=== PATIENT | male | born 1955 | race Caucasian/White ===

== ENCOUNTER 2016-11-22 19:34 | Emergency (ER) | payer MEDICARE, OTHER ==
[2016-11-22 19:43] VITALS: BP 122/73
--- NOTE | 2016-11-22 20:06 | ED Physician Documentation ---
PD HPI UPPER EXT INJURY - Stated complaint Stated Complaint: FINGER PX - Chief complaint Chief Complaint: Ext Problem PD PAST MEDICAL HISTORY - Past Medical History Past Medical History: Yes Endocrine/Autoimmune: Type 2 diabetes Musculoskeletal: Chronic back pain - Past Surgical History Past Surgical History: Yes Ortho: Rotator cuff repair, Spine surgery - Present Medications Home Medications: Ambulatory Orders Medication Instructions Recorded Confirmed Aspirin [Aspir 81] 81 mg PO DAILY 03/13/14 03/13/14 Azithromycin [Zithromax] 250 mg PO DAILY #6 tablet 03/13/14 Cyclobenzaprine [Flexeril] 10 mg PO TID PRN #20 tablet 03/13/14 DULoxetine [Cymbalta] 0 mg PO DAILY 03/13/14 03/13/14 HYDROcod/ACETAM 5/325 [Vicodin 1 - 2 ea PO Q6H PRN #15 tablet 03/13/14 5/325] Insulin Glargine [Lantus] 50 units SQ DAILY 03/13/14 03/13/14 Lisinopril 0 mg PO DAILY 03/13/14 03/13/14 Metformin HCl 1,000 mg PO BID 03/13/14 03/13/14 Tapentadol HCl [Nucynta ER] 100 mg PO TID 03/13/14 03/13/14 - Allergies Allergies/Adverse Reactions: Allergies Allergy/AdvReac Type Severity Reaction Status Date / Time No Known Drug Allergies Allergy Verified 11/22/16 19:43 - Social History Does the pt smoke?: No Smoking Status: Never smoker Does the pt drink ETOH?: No Does the pt have substance abuse?: Yes - Immunizations Immunizations are current?: Yes Results - Vitals Vitals: Vital Signs - 24 hr 11/22/16 19:39 Temperature 37.2 C Heart Rate 81 Respiratory 18 Rate Blood Pressure 122/73 O2 Saturation 100 Oxygen O2 Source Room air
--- NOTE | 2016-11-22 20:07 | ED Physician Documentation ---
History of Present Illness - Stated complaint Stated Complaint: FINGER PX - Chief complaint Chief Complaint: Ext Problem - History obtained from History obtained from: Patient - History of Present Illness Timing: How many days ago (2) Pain level now: 3 Improved by: no ameliorating factors Worsened by: no exacerbating or apparent inciting factor(s) - Additonal information Additional information: c/o redness, swelling, pain right fifth digit without injury x 2 days with gradual increasing (progression) of red streaking to mid-forearm. Not aware of any fevers at home. Review of Systems Constitutional: denies: Fever, Chills, Sweats Skin: reports: Rash Musculoskeletal: reports: Extremity pain, Extremity swelling Neurologic: denies: Focal weakness, Numbness PD PAST MEDICAL HISTORY - Past Medical History Past Medical History: Yes Endocrine/Autoimmune: Type 2 diabetes Musculoskeletal: Chronic back pain - Past Surgical History Past Surgical History: Yes Ortho: Rotator cuff repair, Spine surgery - Present Medications Home Medications: Ambulatory Orders Medication Instructions Recorded Confirmed Aspirin [Aspir 81] 81 mg PO DAILY 03/13/14 03/13/14 Azithromycin [Zithromax] 250 mg PO DAILY #6 tablet 03/13/14 Cyclobenzaprine [Flexeril] 10 mg PO TID PRN #20 tablet 03/13/14 DULoxetine [Cymbalta] 0 mg PO DAILY 03/13/14 03/13/14 HYDROcod/ACETAM 5/325 [Vicodin 1 - 2 ea PO Q6H PRN #15 tablet 03/13/14 5/325] Insulin Glargine [Lantus] 50 units SQ DAILY 03/13/14 03/13/14 Lisinopril 0 mg PO DAILY 03/13/14 03/13/14 Metformin HCl 1,000 mg PO BID 03/13/14 03/13/14 Tapentadol HCl [Nucynta ER] 100 mg PO TID 03/13/14 03/13/14 Clindamycin HCl 300 mg PO Q6HR 10 Days 11/22/16 - Allergies Allergies/Adverse Reactions: Allergies Allergy/AdvReac Type Severity Reaction Status Date / Time No Known Drug Allergies Allergy Verified 11/22/16 19:43 - Social History Does the pt smoke?: No Smoking Status: Never smoker Does the pt drink ETOH?: No Does the pt have substance abuse?: Yes - Immunizations Immunizations are current?: Yes PD ED PE NORMAL - Vitals Vital signs reviewed: Yes - General General: Alert and oriented X 3, No acute distress, Well developed/nourished - Neuro Neuro: No motor deficit, No sensory deficit PD ED PE EXPANDED - Extremities Extremities: Other (right fifth digit with erythema, swelling, and mild tenderness to palpation. There is no wound and no fluctuance or discharge. There is an erythematous streak from the right fifth digit to mid-forearm) Results - Vitals Vitals: Vital Signs - 24 hr 11/22/16 19:39 Temperature 37.2 C Heart Rate 81 Respiratory 18 Rate Blood Pressure 122/73 O2 Saturation 100 Oxygen O2 Source Room air PD MEDICAL DECISION MAKING - ED course Complexity details: considered differential, d/w patient Departure - Departure Disposition: 01 Home, Self Care Clinical Impression: Cellulitis Condition: Good Instructions: ED Infec Skin Cellulitis Follow-Up: Betsy Ngo ARNP [Primary Care Provider] - Within 3 Days (Contact your primary care provider to arrange for next available appointment. If possible, it would be ideal for your doctor to reexamine the infection Thursday or Thursday.) Prescriptions: Clindamycin HCl 300 mg PO Q6HR 10 Days Discharge Date/Time: 11/22/16 20:27
[2016-11-22] MEDS ORDERED: CLINDAMYCIN 150 MG CAPSULE PO ONE (20:23)
[2016-11-22] MEDS: CLINDAMYCIN 150 MG CAPSULE PO STA (20:25)
== END 2016-11-22 20:27 | disposition home or self-care (01) ==
LOC: ED 19:34
DX: L03.011 Cellulitis of right finger (principal); E11.9 Type 2 diabetes mellitus without complications; Z79.4 Long term (current) use of insulin; Z79.82 Long term (current) use of aspirin
CPT/HCPCS: 99283

== ENCOUNTER 2017-01-20 09:22 | Outpatient (CLI) | payer MEDICARE, OTHER ==
--- NOTE | 2017-01-20 11:49 | Ultrasound Report ---
RIGHT UPPER QUADRANT ULTRASOUND: 01/20/2017 CLINICAL INDICATION: Pain. COMPARISON: 05/31/2013 TECHNIQUE: Real-time scanning was performed with appliance service representative static images obtained. FINDINGS: The liver measures 18 cm. Hepatic echogenicity is increased, compatible with fatty infilt ration, with focal fatty sparing adjacent to the gallbladder fossa. No intrahepatic biliary dilatati on or suspicious solid lesion is seen. The common bile duct measures 3 mm. The gallbladder is luz l. The right kidney measures 12.5 cm, and again demonstrates an upper pole calculus, nonobstructing. No free fluid is present. IMPRESSION: FATTY INFILTRATION OF THE LIVER. RIGHT NEPHROLITHIASIS, WITHOUT EVIDENCE OF HYDRONEPHRO SIS. NO EVIDENCE OF CHOLELITHIASIS OR BILIARY DILATATION. JOB #: [id number] EXT JOB #:[id number]
== END 2017-01-20 09:23 | disposition home or self-care (01) ==
LOC: DI 09:22
PROVIDERS: ATTEND Nurse Practitioner Family
DX: K76.0 Fatty (change of) liver, not elsewhere classified (principal); N20.0 Calculus of kidney
CPT/HCPCS: 76705

== ENCOUNTER 2020-02-15 15:39 | Outpatient (CLI) | payer MEDICARE, OTHER ==
--- NOTE | 2020-02-15 16:18 | XRAY Report ---
PROCEDURE: Knee 3 View LT INDICATIONS: EFFUSION OF JOINT OF LT KNEE TECHNIQUE: 3 views of the left knee(s) were acquired. COMPARISON: None. FINDINGS: Bones: No fractures or dislocations. There is [id number] degenerative joint disease with join t space narrowing and periarticular osteophytes. No suspicious bony lesions. Soft tissues: Trace joint effusion. No suspicious soft tissue calcifications. IMPRESSION: [id number] degenerative joint disease. Reviewed by: Tawnya Marshall MD on 02/15/2020 4:16 PM PDT Approved by: Tawnya Marshall MD on 02/15/2020 4:16 PM PDT Station ID: [id number]
== END 2020-02-15 15:40 | disposition home or self-care (01) ==
LOC: DI 15:39
PROVIDERS: ATTEND Registered Nurse
DX: M17.12 Unilateral primary osteoarthritis, left knee (principal)

== ENCOUNTER 2020-12-09 19:28 | Inpatient (IN) | payer MEDICARE, OTHER ==
[2020-12-09 19:55] LABS: BASOPHILS % (AUTO) 0.2 %; HCT - HEMATOCRIT 46.4 % (42.0-52.0); HGB - HEMOGLOBIN 16.2 g/dL (14.0-18.0); LYMPHOCYTES % (AUTO) 9.2 %; MEAN CORPUSCULAR HEMOGLOBIN 29.6 pg (27.0-31.0); MEAN CORPUSCULAR HGB CONC 34.9 g/dL (32.0-36.0); MEAN CORPUSCULAR VOLUME 84.8 fL (80.0-94.0); MONOCYTES % (AUTO) 6.3 %; NEUTROPHILS % (AUTO) 83.4 %; PLT - PLATELET COUNT 291 10^3/uL (130-450); RED BLOOD COUNT 5.47 10^6/uL (4.70-6.10); RED CELL DISTRIBUTION WIDTH 13.2 % (12.0-15.0); WHITE BLOOD COUNT 20.5 x10^3/uL (4.8-10.8)
[2020-12-09 19:59] LABS: ABNORMAL LYMPHS % (MANUAL) 0 %
[2020-12-09] MEDS ORDERED: HYDROmorphone 1 MG/ML CARPUJECT IVP STA (20:01)
[2020-12-09] MEDS ORDERED: METOCLOPRAMIDE 10 MG/2 ML VIAL IVP STA (20:01)
[2020-12-09] MEDS ORDERED: SODIUM CHLORIDE 0.9% 1,000 ML IV STA ×2 (20:01→20:54)
--- NOTE | 2020-12-09 20:02 | ED Physician Documentation ---
PD HPI ABD PAIN - Stated complaint Stated Complaint: VOMITING, DIARRHEA - Chief complaint Chief Complaint: Abd Pain - History obtained from History obtained from: Patient - Additional information Additional information: 65-year-old gentleman with type 2 diabetes has been noncompliant with his insulin for the last 2 weeks or so because he ran out and did not reorder it. For the last 2 days he has been vomiting with high blood sugars. He has upper abdominal pain especially with the vomiting. No history of DKA. He does use marijuana several times a week but not daily. No history of abdominal s urgeries. Review of Systems Ten Systems: 10 systems reviewed and negative Constitutional: denies: Fever, Chills Cardiac: denies: Chest pain / pressure, Palpitations Respiratory: denies: Dyspnea, Cough GI: reports: Abdominal Pain, Nausea, Vomiting, Diarrhea (Mild) PD PAST MEDICAL HISTORY - Past Medical History Endocrine/Autoimmune: Type 2 diabetes Musculoskeletal: Chronic back pain - Past Surgical History Past Surgical History: Yes Ortho: Rotator cuff repair, Spine surgery - Present Medications Home Medications: Ambulatory Orders Medication Instructions Recorded Confirmed Aspirin [Aspir 81] 81 mg PO DAILY 03/13/14 12/09/20 Cyclobenzaprine [Flexeril] 10 mg PO TID PRN #20 tablet 03/13/14 12/09/20 DULoxetine [Cymbalta] 0 mg PO DAILY 03/13/14 12/09/20 Insulin Glargine [Lantus] 50 units SQ DAILY 03/13/14 12/09/20 Lisinopril 5 mg PO DAILY 03/13/14 12/09/20 Metformin HCl 1,000 mg PO BID 03/13/14 12/09/20 Atorvastatin Calcium [Lipitor] 80 mg PO DAILY 12/09/20 12/09/20 Empagliflozin [Jardiance] 10 mg PO DAILY 12/09/20 12/09/20 Metoprolol Tartrate [Lopressor] 12.5 mg PO 12/09/20 12/09/20 Tamsulosin [Flomax] 0.4 mg PO DAILY PM 12/09/20 12/09/20 - Allergies Allergies/Adverse Reactions: Allergies Allergy/AdvReac Type Severity Reaction Status Date / Time No Known Drug Allergies Allergy Verified 12/09/20 19:43 - Social History Does the pt smoke?: No Smoking Status: Never smoker Does the pt drink ETOH?: No Does the pt have substance abuse?: Yes - Immunizations Immunizations are current?: Yes PD ED PE NORMAL - Vitals Vital signs reviewed: Yes - General General: Alert and oriented X 3, No acute distress - HEENT HEENT: PERRL, EOMI - Neck Neck: Supple, no meningeal sign, No bony TTP - Cardiac Cardiac: RRR, No murmur - Respiratory Respiratory: No respiratory distress, Clear bilaterally - Abdomen Abdomen: Normal bowel sounds, Soft, Non tender - Back Back: No CVA TTP, No spinal TTP - Derm Derm: Normal color, Warm and dry - Extremities Extremities: No edema, No calf tenderness / cord - Neuro Neuro: Alert and oriented X 3, Normal speech Results - Vitals Vitals: Vital Signs - 24 hr 12/09/20 12/09/20 12/09/20 19:40 20:13 21:15 Temperature 36.2 C L Heart Rate 93 101 H 89 Respiratory 18 18 14 Rate Blood Pressure 108/64 163/93 H 159/82 H O2 Saturation 100 100 97 12/09/20 22:20 Temperature 37.0 C Heart Rate 100 Respiratory 16 Rate Blood Pressure 155/58 H O2 Saturation 99 Oxygen O2 Source Room air - Labs Labs: Laboratory Tests 12/09/20 12/09/20 12/09/20 19:51 19:51 19:51 WBC 20.5 H RBC 5.47 Hgb 16.2 Hct 46.4 MCV 84.8 MCH 29.6 MCHC 34.9 RDW 13.2 Plt Count 291 MPV 10.0 Neut # (Auto) Not Reportable Lymph # (Auto) Not Reportable Emanuel # (Auto) Not Reportable Eos # (Auto) Not Reportable Baso # (Auto) Not Reportable Absolute Nucleated RBC Not Reportable Total Counted 100 Band Neuts % (Manual) 2 Abnorm Lymph % (Manual) 0 Nucleated RBC % Not Reportable Neutrophils # (Manual) 17.0 H Lymphocytes # (Manual) 3.3 Monocytes # (Manual) 0.2 Eosinophils # (Manual) 0.0 Basophils # (Manual) 0.0 Differential Comment MANUAL DIFFERENTIAL WBC Morphology 1+ TOXIC GRANULATION Platelet Estimate NORMAL (130-450,000) Platelet Morphology NORMAL APPEARANCE RBC Morph Micro Appear NORMAL APPEARANCE VBG pH VBG pCO2 VBG pO2 VBG HCO3 VBG Total CO2 VBG O2 Saturation VBG Base Excess Sodium 132 L Potassium 4.6 Chloride 84 L Carbon Dioxide 18 L Anion Gap 30.0 H BUN 41 H Creatinine 1.4 H Estimated GFR (MDRD) 51 L Glucose 447 H POC Whole Bld Glucose 429 H Lactic Acid Calcium 14.2 H* Total Bilirubin 2.1 H AST 16 ALT 30 Alkaline Phosphatase 140 H Total Protein 8.7 H Albumin 4.6 Globulin 4.1 Albumin/Globulin Ratio 1.1 Lipase 25 PTH Intact Urine Color Urine Clarity Urine pH Ur Specific [place] Urine Protein Urine Glucose (UA) Urine Ketones Urine Occult Blood Urine Nitrite Urine Bilirubin Urine Urobilinogen Ur Leukocyte Esterase Ur Microscopic Review Urine Culture Comments Serum Ketones 12/09/20 12/09/20 12/09/20 19:51 20:08 20:08 WBC RBC Hgb Hct MCV MCH MCHC RDW Plt Count MPV Neut # (Auto) Lymph # (Auto) Emanuel # (Auto) Eos # (Auto) Baso # (Auto) Absolute Nucleated RBC Total Counted Band Neuts % (Manual) Abnorm Lymph % (Manual) Nucleated RBC % Neutrophils # (Manual) Lymphocytes # (Manual) Monocytes # (Manual) Eosinophils # (Manual) Basophils # (Manual) Differential Comment WBC Morphology Platelet Estimate Platelet Morphology RBC Morph Micro Appear VBG pH VBG pCO2 VBG pO2 VBG HCO3 VBG Total CO2 VBG O2 Saturation VBG Base Excess Sodium Potassium Chloride Carbon Dioxide Anion Gap BUN Creatinine Estimated GFR (MDRD) Glucose POC Whole Bld Glucose Lactic Acid 2.3 H Calcium Total Bilirubin AST ALT Alkaline Phosphatase Total Protein Albumin Globulin Albumin/Globulin Ratio Lipase PTH Intact 5 L Urine Color Urine Clarity Urine pH Ur Specific [place] Urine Protein Urine Glucose (UA) Urine Ketones Urine Occult Blood Urine Nitrite Urine Bilirubin Urine Urobilinogen Ur Leukocyte Esterase Ur Microscopic Review Urine Culture Comments Serum Ketones SMALL H 12/09/20 12/09/20 12/09/20 20:08 20:50 22:10 WBC RBC Hgb Hct MCV MCH MCHC RDW Plt Count MPV Neut # (Auto) Lymph # (Auto) Emanuel # (Auto) Eos # (Auto) Baso # (Auto) Absolute Nucleated RBC Total Counted Band Neuts % (Manual) Abnorm Lymph % (Manual) Nucleated RBC % Neutrophils # (Manual) Lymphocytes # (Manual) Monocytes # (Manual) Eosinophils # (Manual) Basophils # (Manual) Differential Comment WBC Morphology Platelet Estimate Platelet Morphology RBC Morph Micro Appear VBG pH 7.349 VBG pCO2 33.0 L VBG pO2 28.2 VBG HCO3 17.8 L VBG Total CO2 18.8 L VBG O2 Saturation 58.4 L VBG Base Excess -6.6 L Sodium Potassium Chloride Carbon Dioxide Anion Gap BUN Creatinine Estimated GFR (MDRD) Glucose POC Whole Bld Glucose 409 H Lactic Acid Calcium Total Bilirubin AST ALT Alkaline Phosphatase Total Protein Albumin Globulin Albumin/Globulin Ratio Lipase PTH Intact Urine Color YELLOW Urine Clarity CLEAR Urine pH 5.5 Ur Specific [place] 1.025 Urine Protein TRACE Urine Glucose (UA) >=1000 H Urine Ketones >=80 H Urine Occult Blood SMALL H Urine Nitrite NEGATIVE Urine Bilirubin NEGATIVE Urine Urobilinogen 0.2 (NORMAL) Ur Leukocyte Esterase NEGATIVE Ur Microscopic Review INDICATED Urine Culture Comments Not Reportable Serum Ketones 12/09/20 22:23 WBC RBC Hgb Hct MCV MCH MCHC RDW Plt Count MPV Neut # (Auto) Lymph # (Auto) Emanuel # (Auto) Eos # (Auto) Baso # (Auto) Absolute Nucleated RBC Total Counted Band Neuts % (Manual) Abnorm Lymph % (Manual) Nucleated RBC % Neutrophils # (Manual) Lymphocytes # (Manual) Monocytes # (Manual) Eosinophils # (Manual) Basophils # (Manual) Differential Comment WBC Morphology Platelet Estimate Platelet Morphology RBC Morph Micro Appear VBG pH VBG pCO2 VBG pO2 VBG HCO3 VBG Total CO2 VBG O2 Saturation VBG Base Excess Sodium Potassium Chloride Carbon Dioxide Anion Gap BUN Creatinine Estimated GFR (MDRD) Glucose POC Whole Bld Glucose 306 H Lactic Acid Calcium Total Bilirubin AST ALT Alkaline Phosphatase Total Protein Albumin Globulin Albumin/Globulin Ratio Lipase PTH Intact Urine Color Urine Clarity Urine pH Ur Specific [place] Urine Protein Urine Glucose (UA) Urine Ketones Urine Occult Blood Urine Nitrite Urine Bilirubin Urine Urobilinogen Ur Leukocyte Esterase Ur Microscopic Review Urine Culture Comments Serum Ketones PD MEDICAL DECISION MAKING - ED course ED course: 65-year-old gentleman with diabetes, also frequent cannabis use presents with upper abdominal pain and vomiting for 2 days. Exam is benign. Labs notable for significant prerenal azotemia with MORTEZA, profound hypercalcemia, elevated white count without other signs of infection. Parathyroid hormone was appropriately low. CT scanning of the chest and abdomen were done to evaluate for malignancy in the setting of profound hypercalcemia. He was fluid resuscitated and given IV insulin. CT reads pending on admission, but noted to have a large bladder on CT by me and post void bladder scan residual was about [address] Moya is admitting. Departure - Departure Disposition: 66 [facility] DC/Xfer Clinical Impression: Abdominal pain, Vomiting, Dehydration, DKA (diabetic ketoacidoses), Hypercalcemia Condition: Stable
[2020-12-09 20:18] LABS: ALBUMIN 4.6 g/dL (3.2-5.5); ALBUMIN/GLOBULIN RATIO 1.1 (1.0-2.2); BILIRUBIN,TOTAL 2.1 mg/dL (0.2-1.0); CREATININE 1.4 mg/dL (0.6-1.2); POTASSIUM 4.6 mmol/L (3.5-5.0); TOTAL PROTEIN 8.7 g/dL (6.7-8.2)
[2020-12-09 20:20] LABS: CALCIUM 14.2 mg/dL (8.5-10.3)
[2020-12-09 20:21] LABS: VBG PH 7.349 (7.31-7.41)
[2020-12-09 20:22] LABS: BAND NEUTROPHILS % (MANUAL) 2 %; LYMPHOCYTES # (MANUAL) 3.3 10^3/uL (1.5-3.5); LYMPHOCYTES % (MANUAL) 16 %; MONOCYTES # (MANUAL) 0.2 10^3/uL (0.0-1.0)
[2020-12-09 20:22] LABS: VBG BASE EXCESS -6.6 mmol/L (-2 - +2); VBG HCO3 17.8 mmol/L (23-28); VBG OXYGEN SATURATION 58.4 % (60-80); VBG PO2 28.2 mmHg (25-47); VBG TOTAL CO2 18.8 mmol/L (24-29)
[2020-12-09 20:23] LABS: PLATELET ESTIMATE, MANUAL NORMAL (130-450,000) (NORMAL); PLATELET MORPHOLOGY NORMAL APPEARANCE (NORMAL); RBC MORPHOLOGY (MULTIPLE) NORMAL APPEARANCE (NORMAL); WBC MORPHOLOGY (MULTIPLE) 1+ TOXIC GRANULATION (NORMAL)
[2020-12-09 20:24] LABS: DIFFERENTIAL COMMENT MANUAL DIFFERENTIAL
[2020-12-09] MEDS ORDERED: IOPAMIDOL-300 100 ML VIAL ONE (20:41)
[2020-12-09] MEDS ORDERED: INSULIN REGULAR HUMAN 100 UNIT/1 ML 10 ML MDV IVP STA (20:54)
[2020-12-09] MEDS ORDERED: IOPAMIDOL-300 100 ML VIAL IVP ONE (22:03)
[2020-12-09] MEDS ORDERED: ACETAMINOPHEN 325 MG TABLET PO PRN (22:15)
[2020-12-09] MEDS ORDERED: oxyCODONE 5 MG TABLET PO PRN (22:15)
[2020-12-09 22:19] LABS: GLUCOSE, URINE (UA) >=1000 mg/dL (NEGATIVE); KETONES,URINE (UA) >=80 mg/dL (NEGATIVE); LEUKOCYTE ESTERASE, URINE NEGATIVE (NEGATIVE); NITRITE,URINE NEGATIVE (NEGATIVE); OCCULT BLOOD,URINE SMALL (NEGATIVE); PH,URINE 5.5 PH (5.0-7.5); PROTEIN,URINE TRACE mg/dL (NEGATIVE); UROBILINOGEN,URINE 0.2 (NORMAL) E.U./dL (NORMAL)
[2020-12-09 22:21] LABS: CLARITY,URINE CLEAR (CLEAR)
[2020-12-09 22:26] LABS: BILIRUBIN,URINE NEGATIVE (NEGATIVE); ICTOTEST,URINE NEGATIVE
--- NOTE | 2020-12-09 22:26 | HISTORY & PHYSICAL EXAMINATION ---
Chief Complaint - Chief Complaint Chief Complaint: Nausea and vomiting History of Present Illness - Admitted From Admitted From:: Home - History Obtained From Records Reviewed: Yes History obtained from: Patient, ER Physician, EMR - History of Present Illness HPI Comment/Other: This is a 65-year-old male with a past medical history significant for type 2 diabetes mellitus treated with insulin, coronary artery disease who presents today complaining of nausea and vomiting for the past 2 days. He states his symptoms began 3 days ago and have persisted. He has been unable to tolerate any food and only minimal liquids. He states anything he tries to consume he vomits right away. He does complain of heartburn for which he has been taking Tums on a daily basis for the past few days. He tells me he takes Tums on and off for many years but he has taken about 10 tablets over the past 3 days for heartburn associated with vomiting. He reports no chest pain, dyspnea, cough. Denies any fevers, chills. He reports no abdominal pain, dysuria. He does report frequency and urgency as well as polyuria. He states he is was to be on insulin for his diabetes but he ran out a few weeks ago and went on a trip and he never got a refill. He states his blood glucose to be well controlled with an A1c around 7% but he states his blood glucose has been poorly controlled lately. He only checks it once a week at most. He states he has been on Jard iance for about 6 months from what he can remember. He tells me he does take vitamin D [id number] but he does not know the dose. He is not on a thiazide and denies a personal history of cancer. He reports having a colonoscopy recently which was unremarkable. He admits to marijuana use about 3-4 times a week. He states his nausea is relieved by warm showers. In the emergency department, he was found to be afebrile. His heart is in the 90s. Blood pressure was 108/64. He was not tachypneic and saturating well on room air. His labs were significant for a white count of 20.5 with a left shift. His bicarbonate was 18, anion gap 30, BUN 41, creatinine 1.4. His blood glucose 447 and his calcium 14.2. Serum ketones were small. His urinalysis revealed ketones and glucosuria with no pyuria or bacteriuria. He was given 2 L normal saline as well as 6 units of IV insulin. He underwent a CT the abdomen pelvis as well as chest which revealed some esophagitis but no obvious mass. Given the above findings, medicine was consulted for admission. I did discuss goals of care with the patient and he would like to be a full code. History - Past Medical History Cardiovascular: reports: High cholesterol, Coronary artery disease Endocrine/Autoimmune: reports: Type 2 diabetes : reports: Benign prostate hypertrophy Musculoskeletal: reports: Chronic back pain - Past Surgical History General: reports: Colonoscopy Ortho: reports: Rotator cuff repair, Spine surgery - Family & Social History Family History Comment/Other: Reports both of his parents had diabetes and heart disease. No family history of cancer. Living arrangement: At home Living Situation: With spouse/s.o. Social History Notes: He lives at home with his . They have lived on [facility] for over 25 years. He is now retired but previously worked in the [employer] industry. He is a non-smoker and rarely drinks alcohol. He does smoke marijuana about 3-4 times a week and has been doing so for many years. Meds/Allgy - Home Medications Home Medications: Ambulatory Orders Medication Instructions Recorded Confirmed Aspirin [Aspir 81] 81 mg PO DAILY 03/13/14 12/09/20 Cyclobenzaprine [Flexeril] 10 mg PO TID PRN #20 tablet 03/13/14 12/09/20 DULoxetine [Cymbalta] 0 mg PO DAILY 03/13/14 12/09/20 Insulin Glargine [Lantus] 50 units SQ DAILY 03/13/14 12/09/20 Lisinopril 5 mg PO DAILY 03/13/14 12/09/20 Metformin HCl 1,000 mg PO BID 03/13/14 12/09/20 Atorvastatin Calcium [Lipitor] 80 mg PO DAILY 12/09/20 12/09/20 Empagliflozin [Jardiance] 10 mg PO DAILY 12/09/20 12/09/20 Metoprolol Tartrate [Lopressor] 12.5 mg PO 12/09/20 12/09/20 Tamsulosin [Flomax] 0.4 mg PO DAILY PM 12/09/20 12/09/20 - Allergies Allergies/Adverse Reactions: Allergies Allergy/AdvReac Type Severity Reaction Status Date / Time No Known Drug Allergies Allergy Verified 12/09/20 19:43 Review of Systems - Constitutional Constitutional: denies: Fever, Chills - Eyes Eyes: denies: Blurred vision - Ears, Nose & Throat Ears, Nose & Throat: denies: Nasal discharge, Nasal congestion, Sore throat - Cardiovascular Cariovascular: reports: Lightheadedness. denies: Chest pain, Edema, Exertional dyspnea, Decr. exercise tolerance - Respiratory Respiratory: denies: Cough, SOB at rest, SOB with exertion - Gastrointestinal Gastrointestinal: reports: Diarrhea, Nausea, Vomiting, Reflux/heartburn, Poor appetite. denies: Abdominal pain, Constipation, Change in bowel habits, Black stools, Bloody stools, Kota blood emesis - Genitourinary Genitourinary: reports: Frequency, Urgency. denies: Dysuria, Hematuria - Musculoskeletal Musculoskeletal: reports: Back pain. denies: Limited range of motion - Integumentary Integumentary: denies: Rash - Neurological Neurological: reports: Dizziness. denies: General weakness, Focal weakness, Headache, Numbness - Endocrine Endocrine: reports: Polyuria - Hematologic/Lymphatic Hematologic/Lymphatic: denies: Anemia, Bleeding tendencies - All Other Systems All Other Systems: reports: Reviewed and negative Prior Level of Functionality: He is independent with his ADLs. Exam - Vital Signs Reviewed Vital Signs: Yes Vital Signs: Vital Signs x48h Temp Pulse Resp BP Pulse Ox 12/09/20 21:15 89 14 159/82 H 97 12/09/20 20:13 101 H 18 163/93 H 100 12/09/20 19:40 36.2 C L 93 18 108/64 100 - Physical Exam General Appearance: positive: No acute distress, Alert Eyes Bilateral: positive: Normal inspection, Conjunctivae nml ENT: positive: Dry mucous membranes. negative: No signs of dehydration Neck: positive: Nml inspection Respiratory: positive: No respiratory distress. negative: Wheezes, Rales Cardiovascular: positive: Regular rate & rhythm, No murmur. negative: T achycardia, Systolic murmur Abdomen: positive: Non-tender, No distention. negative: Guarding, Rebound Rectal: negative: Non-tender Skin: positive: Warm, Dry Extremities: positive: Full ROM, No pedal edema Neurologic/Psychiatric: positive: Motor nml. negative: Disoriented to person, Disoriented to place Conclusion/Plan - Problem List (1) DKA (diabetic ketoacidoses) Conclusion/Plan: Suspect he has mild diabetic ketoacidosis given his elevated anion gap of 30 and a bicarbonate of 18. His pH 7.349 on VBG. Suspect the acidosis is due to mild DKA versus starvation ketoacidosis given his poor oral intake. I would have expected his bicarbonate to be much lower given the elevated anion gap but I do wonder if there could be a component of metabolic alkalosis which could be milk- alkali syndrome from the calcium and vitamin D has been taking given he also has hypercalcemia. The DKA may also be secondary to the use of Jardiance. At this time, we will keep him n.p.o. except for sips of clears. Given this is only mild DKA, we will place him on 50 units of Lantus this evening plus sliding scale. We will check labs every 6 hours. Continue hydration with normal saline and will transition to D5 half-normal when blood glucose is less than 200. Check A1c. (2) Hypercalcemia Conclusion/Plan: His calcium is elevated at 14.2 on admission. The etiology of this is not clear at the moment. Although he has been taking calcium carbonate and vitamin D, I am not sure that this is milk-alkali syndrome although it is on the differential as he could have a mixed acid-base secondary to the diabetic ketoacidosis and milk-alkali syndrome. CT the abdomen pelvis revealed no obvious mass to suggest a malignancy. His PTH is appropriately decreased at 5. At this time, we will hydrate him with normal saline at 200 cc an hour. We will hold off on zol edronic acid unless his calcium remains significantly elevated tomorrow morning. Check vitamin D and PTH related protein. Will consider SPEP/UPEP although his total protein is not significantly elevated. (3) Nausea and vomiting Conclusion/Plan: This may be related to his diabetic ketoacidosis or due to cannabinoid hyperemesis syndrome. CT the abdomen pelvis revealed no evidence of obstruction. There was evidence of esophagitis likely due to his multiple episodes of vomiting over the past 3 days. At this time, he is improved from a nausea and vomiting standpoint. We will place him on Protonix daily. N.p.o. for time being given the diabetic ketoacidosis but will start him on a clear liquid diet as soon as that is resolved. Zofran as needed for nausea. (4) Acute kidney injury Conclusion/Plan: Suspect this is likely prerenal injury. His creatinine is elevated at 1.4 and his baseline is 0.7 although this is from labs over 5 years ago. Although his bladder was quite distended on CT the abdomen pelvis, there is no evidence of hydronephrosis. Suspect his injury is due to dehydration from the DKA. We will hydrate him with IV fluids at 200 cc an hour. Monitor his renal function and urine output. Hold lisinopril. (5) Leukocytosis Conclusion/Plan: I suspect this is likely reactive. His white count is elevated at 20,000 with a left shift. Although his lactic acid was mildly elevated, there is no evidence of infection and I suspect this is related to the use of Metformin and the acute kidney injury as well as dehydration. We will hold off on antibiotics at this time given lack of obvious infection. We will recheck CBC in the morning. (6) History of coronary artery disease Conclusion/Plan: Stable. We will resume his home aspirin, statin, metoprolol. (7) BPH (benign prostatic hyperplasia) Conclusion/Plan: The CT of the abdomen pelvis did reveal a distended bladder. His postvoid residual was 400 mL. We will continue his Flomax and bladder scan as needed. - Lab Results Lab results reviewed: Yes Fish Bones: 12/09/20 19:51 12/09/20 22:28 - Diagnostic Imaging Results Diagnostic Imaging Results: positive: Prelim report reviewed - EKG Results EKG Interpreted Independently: Yes EKG Comparison: No prior EKG EKG Findings: EKG reveals a sinus rhythm with Q waves present in the inferior and anterior leads. No evidence of ischemia. Core Measures - Anticipated LOS I expect patient to be DC'd or transferred within 96 hours.: Yes - Issues Hospital Issues and Management Plan: 65-year-old male with type 2 diabetes mellitus presents with nausea vomiting found to have mild DKA and hypercalcemia. Will admit for insulin, IV fluids. - DVT/VTE - Prophylaxis VTE/DVT Device ordered at admit?: Yes VTE/DVT Prophylaxis med ordered at admit?: Yes
[2020-12-09 22:33] LABS: BACTERIA,URINE None Seen /HPF (None Seen); RBC,URINE 0-5 /HPF (0-5); SQUAMOUS EPITHELIAL CELL,UR NONE SEEN (<= Few); WBC,URINE 0-3 /HPF (0-3)
--- OUTSIDE RECORDS SUMMARY | 2020-12-09 22:33 | EXTERNAL MEDICAL SUMMARY RPT | Continuity of Care Document ---
:1955 Demographics Phone Unavailable Preferred Language Unknown Marital Status Unknown Alevism Affiliation Unknown Race Unknown Ethnic Group Unknown Author Organization [facility] Address [address] [id number] Phone Social History date description facility [phone]
[2020-12-09 22:52] LABS: CREATININE 1.3 mg/dL (0.6-1.2); MAGNESIUM 1.9 mg/dL (1.7-2.8); PHOSPHORUS 4.3 mg/dL (2.5-4.6); POTASSIUM 4.6 mmol/L (3.5-5.0)
[2020-12-09 22:54] LABS: CALCIUM 12.3 mg/dL (8.5-10.3)
[2020-12-09] MEDS ORDERED: SODIUM CHLORIDE 0.9% 1,000 ML IV SCH (23:00)
[2020-12-09] MEDS: TAMSULOSIN 0.4 MG CAPSULE PO SCH (23:27)
[2020-12-09] MEDS: ATORVASTATIN 40 MG TABLET PO SCH (23:27)
[2020-12-09] MEDS: DEXTROSE 5%-0.45% NACL 1,000 ML IV SCH (23:28)
[2020-12-09] MEDS: SODIUM CHLORIDE FLUSH 0.9% 10 ML SYRINGE IVP SCH (23:35)
[2020-12-09] MEDS: SODIUM CHLORIDE 0.9% 1,000 ML IV SCH (23:38)
[2020-12-09] MEDS: INSULIN REGULAR HUMAN 300 UNIT/3 ML VIAL SUBQ SCH (23:42)
[2020-12-09] MEDS: INSULIN GLARGINE 300 UNIT/3 ML PEN SUBQ SCH (23:43)
[2020-12-09 23:44] LABS: B. PARAPERTUSSIS- RESP PCR PAN NOT DETECTED; B. PERTUSSIS- RESP PCR PANEL NOT DETECTED; C. PNEUMONIAE- RESP PCR PANEL NOT DETECTED; CORONAVIRUS 229E-RESP PCR NOT DETECTED; CORONAVIRUS HKU1-RESP PCR NOT DETECTED; CORONAVIRUS NL63-RESP PCR NOT DETECTED; CORONAVIRUS OC43-RESP PCR NOT DETECTED; HUMAN METAPNEUMOVIRUS NOT DETECTED; INFLUENZA A- RESP PCR PANEL NOT DETECTED; INFLUENZA B - RESP PCR PANEL NOT DETECTED; M. PNEUMONIAE- RESP PCR PANEL NOT DETECTED; PARAINFLUENZA VIRUS 1 NOT DETECTED; PARAINFLUENZA VIRUS 2 NOT DETECTED; PARAINFLUENZA VIRUS 3 NOT DETECTED; PARAINFLUENZA VIRUS 4 NOT DETECTED; RHINOVIRUS/ENTEROVIRUS NOT DETECTED; RSV- RESP PCR PANEL NOT DETECTED; SARS-CoV-2 -RESP PCR PANEL NOT DETECTED
[2020-12-10] MEDS: SODIUM CHLORIDE 0.9% 1,000 ML IV SCH ×4 (01:22→20:47)
[2020-12-10] MEDS: ONDANSETRON 4 MG/2 ML VIAL IVP PRN ×2 (04:26→10:22)
[2020-12-10 05:22] LABS: BASOPHILS % (AUTO) 0.3 %; HGB - HEMOGLOBIN 15.2 g/dL (14.0-18.0); LYMPHOCYTES % (AUTO) 10.5 %; MEAN CORPUSCULAR HEMOGLOBIN 28.8 pg (27.0-31.0); MEAN CORPUSCULAR HGB CONC 33.8 g/dL (32.0-36.0); MEAN CORPUSCULAR VOLUME 85.4 fL (80.0-94.0); MEAN PLATELET VOLUME 10.1 fL (7.4-11.4); MONOCYTES % (AUTO) 8.4 %; NEUTROPHILS % (AUTO) 79.8 %; PLT - PLATELET COUNT 275 10^3/uL (130-450); RED BLOOD COUNT 5.27 10^6/uL (4.70-6.10); RED CELL DISTRIBUTION WIDTH 13.2 % (12.0-15.0); WHITE BLOOD COUNT 20.6 x10^3/uL (4.8-10.8)
[2020-12-10 05:30] LABS: ABNORMAL LYMPHS % (MANUAL) 0 %; BAND NEUTROPHILS % (MANUAL) 0 %
[2020-12-10 05:35] LABS: CALCIUM 11.2 mg/dL (8.5-10.3); CREATININE 1.1 mg/dL (0.6-1.2); MAGNESIUM 1.8 mg/dL (1.7-2.8); PHOSPHORUS 2.5 mg/dL (2.5-4.6); POTASSIUM 3.7 mmol/L (3.5-5.0)
[2020-12-10] MEDS: INSULIN REGULAR HUMAN 300 UNIT/3 ML VIAL SUBQ SCH ×4 (05:43→16:44)
[2020-12-10 05:55] LABS: BASOPHILS # (MANUAL) 0.2 10^3/uL (0-0.1); BASOPHILS % (MANUAL) 1 %; LYMPHOCYTES # (MANUAL) 1.2 10^3/uL (1.5-3.5); LYMPHOCYTES % (MANUAL) 6 %; NEUTROPHILS # (MANUAL) 18.1 10^3/uL (1.5-6.6)
[2020-12-10 05:56] LABS: DIFFERENTIAL COMMENT MANUAL DIFFERENTIAL; PLATELET ESTIMATE, MANUAL NORMAL (130-450,000) (NORMAL); PLATELET MORPHOLOGY NORMAL APPEARANCE (NORMAL); RBC MORPHOLOGY (MULTIPLE) NORMAL APPEARANCE (NORMAL); WBC MORPHOLOGY (MULTIPLE) NORMAL APPEARANCE (NORMAL)
--- NOTE | 2020-12-10 07:28 | PROVIDER PROGRESS NOTE ---
Subjective - Prog Note Date Prog Note Date: 12/10/20 Prog Note Time: 07:27 - Subjective Pt reports feeling: Improved Subjective: no new events overnight per sign out. He is comfortable x for nausea. zofran not covering 6 hours. No fever. WBc same Denies cp, cough, congestion. Current Medications - Current Medications Current Medications: Active Medications Acetaminophen (Acetaminophen 325 Mg Tablet) 650 mg PO Q4HR PRN PRN Reason: Pain 1 to 4 Aspirin (Aspirin Ec 81 Mg Tablet) 81 mg PO DAILY JASON Atorvastatin Calcium (Atorvastatin 40 Mg Tablet) 80 mg PO HS [facility] [place] Last Admin: 12/09/20 23:27 Dose: 80 mg Documented by: Enoxaparin Sodium (Enoxaparin 40 Mg/0.4 Ml Syringe) 40 mg SUBQ DAILY [facility] [place] Sodium Chloride (Normal Saline 0.9%) 1,000 mls @ 200 mls/hr IV .Q5H [facility] [place] Last Admin: 12/10/20 06:07 Dose: 200 mls/hr Documented by: Dextrose/Sodium Chloride (D5.45ns) 1,000 mls @ 125 mls/hr IV .Q8H [facility] [place] Last Infusion: 12/10/20 01:22 Dose: 0 mls/hr Documented by: Insulin Glargine (Insulin Glargine 300 Unit/3 Ml Pen) 50 unit SUBQ QPM [facility] [place] Last Admin: 12/09/20 23:43 Dose: 50 unit Documented by: Insulin Human Regular (Insulin Regular Human 300 Unit/3 Ml Vial) 1 - 9 unit SUBQ Q6HR [facility] [place]; Protocol Last Admin: 12/10/20 05:43 Dose: 5 unit Documented by: Ondansetron HCl (Ondansetron 4 Mg/2 Ml Vial) 4 mg IVP Q6HR PRN PRN Reason: Nausea / Vomiting Last Admin: 12/10/20 04:26 Dose: 4 mg Documented by: Oxycodone HCl (Oxycodone 5 Mg Tablet) 5 mg PO Q4HR PRN PRN Reason: Pain 5 to 7 Pneumococcal 13-Valent Conj Vacc (Pneumococcal 13-Valent Conj 0.5 Ml Syringe) 0.5 ml IM .ONCE ONE Stop: 12/10/20 09:01 Sodium Chloride (Sodium Chloride Flush 0.9% 10 Ml Syringe) 10 ml IVP PRN PRN PRN Reason: NEEDED PER PROVIDER ORDERS Sodium Chloride (Sodium Chloride Flush 0.9% 10 Ml Syringe) 10 ml IVP 0100,0900,1700 [facility] [place] Last Admin: 12/09/20 23:35 Dose: 10 ml Documented by: Tamsulosin HCl (Tamsulosin 0.4 Mg Capsule) 0.4 mg PO QPM [facility] [place] Last Admin: 12/09/20 23:27 Dose: 0.4 mg Documented by: Aspirin [Aspir 81] 81 mg PO DAILY 03/13/14 DULoxetine [Cymbalta] 0 mg PO DAILY 03/13/14 Insulin Glargine [Lantus] 50 units SQ DAILY 03/13/14 Lisinopril 5 mg PO DAILY 03/13/14 Metformin HCl 1,000 mg PO BID 03/13/14 Atorvastatin Calcium [Lipitor] 80 mg PO DAILY 12/09/20 Empagliflozin [Jardiance] 10 mg PO DAILY 12/09/20 Metoprolol Tartrate [Lopressor] 12.5 mg PO 12/09/20 Tamsulosin [Flomax] 0.4 mg PO DAILY PM 12/09/20 Objective - Vital Signs/Intake & Output Reviewed Vital Signs: Yes Vital Signs: Vital Signs x48h Temp Pulse Resp BP Pulse Ox 12/10/20 04:17 37 C 95 18 154/74 H 97 Intake & Output: Intake & Output 12/07/20 12/08/20 12/09/20 12/10/20 23:59 23:59 23:59 23:59 Intake Total 1999 1187.5 Output Total 1175 Balance 1999 12.5 - Objective General Appearance: positive: Alert, Mild distress (from nausea), Other (thin white male, glasses) Eyes Bilateral: positive: PERRL, EOMI ENT: positive: No signs of dehydration Neck: positive: No JVD. negative: Stiff neck Respiratory: positive: No respiratory distress. negative: Wheezes, Rales, Rhonchi Cardiovascular: positive: Regular rate & rhythm. negative: Gallop/S4, Friction rub Abdomen: positive: No organomegaly, Nml bowel sounds, No distention, Tenderness (minimal over bladder area). negative: Guarding, Rebound Skin: positive: Warm, Dry, Pallor Extremities: positive: Full ROM, No pedal edema Neurologic/Psychiatric: positive: Oriented x3, CN's nml (2-12), Motor nml - Lab Results Fish Bones: 12/10/20 04:50 12/10/20 04:50 Other Labs: Lab Results x24hrs 12/10/20 12/10/20 12/10/20 Range/Units 04:53 04:50 04:50 WBC (4.8-10.8) x10^3/uL RBC (4.70-6.10) 10^6/uL Hgb (14.0-18.0) g/dL Hct (42.0-52.0) % MCV (80.0-94.0) fL MCH (27.0-31.0) pg MCHC (32.0-36.0) g/dL RDW (12.0-15.0) % Plt Count (130-450) 10^3/uL MPV (7.4-11.4) fL Neut # (Auto) Lymph # (Auto) [place] # (Auto) Eos # (Auto) Baso # (Auto) Absolute Nucleated RBC Total Counted Band Neuts % (Manual) (0 - 10) % Abnorm Lymph % (Manual) % Nucleated RBC % Neutrophils # (Manual) (1.5-6.6) 10^3/uL Lymphocytes # (Manual) (1.5-3.5) 10^3/uL Monocytes # (Manual) (0.0-1.0) 10^3/uL Eosinophils # (Manual) (0-0.7) 10^3/uL Basophils # (Manual) (0-0.1) 10^3/uL Differential Comment WBC Morphology (NORMAL) Platelet Estimate (NORMAL) Platelet Morphology (NORMAL) RBC Morph Micro Appear (NORMAL) VBG pH (7.31-7.41) VBG pCO2 (41-51) mmHg VBG pO2 (25-47) mmHg VBG HCO3 (23-28) mmol/L VBG Total CO2 (24-29) mmol/L VBG O2 Saturation (60-80) % VBG Base Excess (-2 - +2) mmol/L Sodium 135 (135-145) mmol/L Potassium 3.7 (3.5-5.0) mmol/L Chloride 94 L (101-111) mmol/L Carbon Dioxide 22 (21-32) mmol/L Anion Gap 19.0 H (6-13) BUN 34 H (6-20) mg/dL Creatinine 1.1 (0.6-1.2) mg/dL Estimated GFR (MDRD) 67 L (>89) Glucose 264 H (70-100) mg/dL POC Whole Bld Glucose 255 H (70 - 100) mg/dL Lactic Acid (0.5-2.2) mmol/L Calcium 11.2 H (8.5-10.3) mg/dL Phosphorus 2.5 (2.5-4.6) mg/dL Magnesium 1.8 (1.7-2.8) mg/dL Total Bilirubin (0.2-1.0) mg/dL AST (10-42) IU/L ALT (10-60) IU/L Alkaline Phosphatase (42-121) IU/L Total Protein (6.7-8.2) g/dL Albumin (3.2-5.5) g/dL Globulin (2.1-4.2) g/dL Albumin/Globulin Ratio (1.0-2.2) Lipase (22-51) U/L TSH 0.43 (0.34-5.60) uIU/mL PTH Intact (12-88) pg/mL Urine Color Urine Clarity (CLEAR) Urine pH (5.0-7.5) PH Ur Specific [place] (1.002-1.030) Urine Protein (NEGATIVE) mg/dL Urine Glucose (UA) (NEGATIVE) mg/dL Urine Ketones (NEGATIVE) mg/dL Urine Occult Blood (NEGATIVE) Urine Nitrite (NEGATIVE) Urine Bilirubin (NEGATIVE) Urine Urobilinogen (NORMAL) E.U./dL Ur Leukocyte Esterase (NEGATIVE) Urine RBC (0-5) /HPF Urine WBC (0-3) /HPF Ur Squamous Epith Cells (<= Few) Urine Bacteria (None Seen) /HPF Ur Microscopic Review Urine Culture Comments Nasal Adenovirus (PCR) Nasal B. parapertussis DNA (PCR) Nasal Coronavir 229E PCR Nasal Coronavir HKU1 PCR Nasal Coronavir NL63 PCR Nasal Coronavir OC43 PCR Nasal Enterovir/Rhinovir PCR Nasal Influenza B PCR Nasal Influenza A PCR Nasal Parainfluen 1 PCR Nasal Parainfluen 2 PCR Nasal Parainfluen 3 PCR Nasal Parainfluen 4 PCR Nasal RSV (PCR) Nasal B.pertussis DNA PCR Nasal C.pneumoniae (PCR) Keith Human Metapneumo PCR Nasal M.pneumoniae (PCR) Nasal SARS-CoV-2 (PCR) Serum Ketones (NEGATIVE) 12/10/20 12/09/20 12/09/20 Range/Units 04:50 23:37 22:45 WBC 20.6 H (4.8-10.8) x10^3/uL RBC 5.27 (4.70-6.10) 10^6/uL Hgb 15.2 (14.0-18.0) g/dL Hct 45.0 (42.0-52.0) % MCV 85.4 (80.0-94.0) fL MCH 28.8 (27.0-31.0) pg MCHC 33.8 (32.0-36.0) g/dL RDW 13.2 (12.0-15.0) % Plt Count 275 (130-450) 10^3/uL MPV 10.1 (7.4-11.4) fL Neut # (Auto) Not Reportable Lymph # (Auto) Not Reportable [place] # (Auto) Not Reportable Eos # (Auto) Not Reportable Baso # (Auto) Not Reportable Absolute Nucleated RBC Not Reportable Total Counted 100 Band Neuts % (Manual) 0 (0 - 10) % Abnorm Lymph % (Manual) 0 % Nucleated RBC % Not Reportable Neutrophils # (Manual) 18.1 H (1.5-6.6) 10^3/uL Lymphocytes # (Manual) 1.2 L (1.5-3.5) 10^3/uL Monocytes # (Manual) 1.0 (0.0-1.0) 10^3/uL Eosinophils # (Manual) 0.0 (0-0.7) 10^3/uL Basophils # (Manual) 0.2 H (0-0.1) 10^3/uL Differential Comment MANUAL DIFFERENTIAL WBC Morphology NORMAL APPEARANCE (NORMAL) Platelet Estimate NORMAL (130-450,000) (NORMAL) Platelet Morphology NORMAL APPEARANCE (NORMAL) RBC Morph Micro Appear NORMAL APPEARANCE (NORMAL) VBG pH (7.31-7.41) VBG pCO2 (41-51) mmHg VBG pO2 (25-47) mmHg VBG HCO3 (23-28) mmol/L VBG Total CO2 (24-29) mmol/L VBG O2 Saturation (60-80) % VBG Base Excess (-2 - +2) mmol/L Sodium (135-145) mmol/L Potassium (3.5-5.0) mmol/L Chloride (101-111) mmol/L Carbon Dioxide (21-32) mmol/L Anion Gap (6-13) BUN (6-20) mg/dL Creatinine (0.6-1.2) mg/dL Estimated GFR (MDRD) (>89) Glucose (70-100) mg/dL POC Whole Bld Glucose 359 H (70 - 100) mg/dL Lactic Acid (0.5-2.2) mmol/L Calcium (8.5-10.3) mg/dL Phosphorus (2.5-4.6) mg/dL Magnesium (1.7-2.8) mg/dL Total Bilirubin (0.2-1.0) mg/dL AST (10-42) IU/L ALT (10-60) IU/L Alkaline Phosphatase (42-121) IU/L Total Protein (6.7-8.2) g/dL Albumin (3.2-5.5) g/dL Globulin (2.1-4.2) g/dL Albumin/Globulin Ratio (1.0-2.2) Lipase (22-51) U/L TSH (0.34-5.60) uIU/mL PTH Intact (12-88) pg/mL Urine Color Urine Clarity (CLEAR) Urine pH (5.0-7.5) PH Ur Specific [place] (1.002-1.030) Urine Protein (NEGATIVE) mg/dL Urine Glucose (UA) (NEGATIVE) mg/dL Urine Ketones (NEGATIVE) mg/dL Urine Occult Blood (NEGATIVE) Urine Nitrite (NEGATIVE) Urine Bilirubin (NEGATIVE) Urine Urobilinogen (NORMAL) E.U./dL Ur Leukocyte Esterase (NEGATIVE) Urine RBC (0-5) /HPF Urine WBC (0-3) /HPF Ur Squamous Epith Cells (<= Few) Urine Bacteria (None Seen) /HPF Ur Microscopic Review Urine Culture Comments Nasal Adenovirus (PCR) NOT DETECTED Nasal B. parapertussis DNA (PCR) NOT DETECTED Nasal Coronavir 229E PCR NOT DETECTED Nasal Coronavir HKU1 PCR NOT DETECTED Nasal Coronavir NL63 PCR NOT DETECTED Nasal Coronavir OC43 PCR NOT DETECTED Nasal Enterovir/Rhinovir PCR NOT DETECTED Nasal Influenza B PCR NOT DETECTED Nasal Influenza A PCR NOT DETECTED Nasal Parainfluen 1 PCR NOT DETECTED Nasal Parainfluen 2 PCR NOT DETECTED Nasal Parainfluen 3 PCR NOT DETECTED Nasal Parainfluen 4 PCR NOT DETECTED Nasal RSV (PCR) NOT DETECTED Nasal B.pertussis DNA PCR NOT DETECTED Nasal C.pneumoniae (PCR) NOT DETECTED Keith Human Metapneumo PCR NOT DETECTED Nasal M.pneumoniae (PCR) NOT DETECTED Nasal SARS-CoV-2 (PCR) NOT DETECTED Serum Ketones (NEGATIVE) 12/09/20 12/09/20 12/09/20 Range/Units 22:28 22:28 22:23 WBC (4.8-10.8) x10^3/uL RBC (4.70-6.10) 10^6/uL Hgb (14.0-18.0) g/dL Hct (42.0-52.0) % MCV (80.0-94.0) fL MCH (27.0-31.0) pg MCHC (32.0-36.0) g/dL RDW (12.0-15.0) % Plt Count (130-450) 10^3/uL MPV (7.4-11.4) fL Neut # (Auto) Lymph # (Auto) [place] # (Auto) Eos # (Auto) Baso # (Auto) Absolute Nucleated RBC Total Counted Band Neuts % (Manual) (0 - 10) % Abnorm Lymph % (Manual) % Nucleated RBC % Neutrophils # (Manual) (1.5-6.6) 10^3/uL Lymphocytes # (Manual) (1.5-3.5) 10^3/uL Monocytes # (Manual) (0.0-1.0) 10^3/uL Eosinophils # (Manual) (0-0.7) 10^3/uL Basophils # (Manual) (0-0.1) 10^3/uL Differential Comment WBC Morphology (NORMAL) Platelet Estimate (NORMAL) Platelet Morphology (NORMAL) RBC Morph Micro Appear (NORMAL) VBG pH (7.31-7.41) VBG pCO2 (41-51) mmHg VBG pO2 (25-47) mmHg VBG HCO3 (23-28) mmol/L VBG Total CO2 (24-29) mmol/L VBG O2 Saturation (60-80) % VBG Base Excess (-2 - +2) mmol/L Sodium 135 (135-145) mmol/L Potassium 4.6 (3.5-5.0) mmol/L Chloride 91 L (101-111) mmol/L Carbon Dioxide 21 (21-32) mmol/L Anion Gap 23.0 H (6-13) BUN 37 H (6-20) mg/dL Creatinine 1.3 H (0.6-1.2) mg/dL Estimated GFR (MDRD) 55 L (>89) Glucose 342 H (70-100) mg/dL POC Whole Bld Glucose 306 H (70 - 100) mg/dL Lactic Acid 1.9 (0.5-2.2) mmol/L Calcium 12.3 H* (8.5-10.3) mg/dL Phosphorus 4.3 (2.5-4.6) mg/dL Magnesium 1.9 (1.7-2.8) mg/dL Total Bilirubin (0.2-1.0) mg/dL AST (10-42) IU/L ALT (10-60) IU/L Alkaline Phosphatase (42-121) IU/L Total Protein (6.7-8.2) g/dL Albumin (3.2-5.5) g/dL Globulin (2.1-4.2) g/dL Albumin/Globulin Ratio (1.0-2.2) Lipase (22-51) U/L TSH (0.34-5.60) uIU/mL PTH Intact (12-88) pg/mL Urine Color Urine Clarity (CLEAR) Urine pH (5.0-7.5) PH Ur Specific [place] (1.002-1.030) Urine Protein (NEGATIVE) mg/dL Urine Glucose (UA) (NEGATIVE) mg/dL Urine Ketones (NEGATIVE) mg/dL Urine Occult Blood (NEGATIVE) Urine Nitrite (NEGATIVE) Urine Bilirubin (NEGATIVE) Urine Urobilinogen (NORMAL) E.U./dL Ur Leukocyte Esterase (NEGATIVE) Urine RBC (0-5) /HPF Urine WBC (0-3) /HPF Ur Squamous Epith Cells (<= Few) Urine Bacteria (None Seen) /HPF Ur Microscopic Review Urine Culture Comments Nasal Adenovirus (PCR) Nasal B. parapertussis DNA (PCR) Nasal Coronavir 229E PCR Nasal Coronavir HKU1 PCR Nasal Coronavir NL63 PCR Nasal Coronavir OC43 PCR Nasal Enterovir/Rhinovir PCR Nasal Influenza B PCR Nasal Influenza A PCR Nasal Parainfluen 1 PCR Nasal Parainfluen 2 PCR Nasal Parainfluen 3 PCR Nasal Parainfluen 4 PCR Nasal RSV (PCR) Nasal B.pertussis DNA PCR Nasal C.pneumoniae (PCR) Keith Human Metapneumo PCR Nasal M.pneumoniae (PCR) Nasal SARS-CoV-2 (PCR) Serum Ketones (NEGATIVE) 12/09/20 12/09/20 12/09/20 Range/Units 22:10 20:50 20:08 WBC (4.8-10.8) x10^3/uL RBC (4.70-6.10) 10^6/uL Hgb (14.0-18.0) g/dL Hct (42.0-52.0) % MCV (80.0-94.0) fL MCH (27.0-31.0) pg MCHC (32.0-36.0) g/dL RDW (12.0-15.0) % Plt Count (130-450) 10^3/uL MPV (7.4-11.4) fL Neut # (Auto) Lymph # (Auto) [place] # (Auto) Eos # (Auto) Baso # (Auto) Absolute Nucleated RBC Total Counted Band Neuts % (Manual) (0 - 10) % Abnorm Lymph % (Manual) % Nucleated RBC % Neutrophils # (Manual) (1.5-6.6) 10^3/uL Lymphocytes # (Manual) (1.5-3.5) 10^3/uL Monocytes # (Manual) (0.0-1.0) 10^3/uL Eosinophils # (Manual) (0-0.7) 10^3/uL Basophils # (Manual) (0-0.1) 10^3/uL Differential Comment WBC Morphology (NORMAL) Platelet Estimate (NORMAL) Platelet Morphology (NORMAL) RBC Morph Micro Appear (NORMAL) VBG pH 7.349 (7.31-7.41) VBG pCO2 33.0 L (41-51) mmHg VBG pO2 28.2 (25-47) mmHg VBG HCO3 17.8 L (23-28) mmol/L VBG Total CO2 18.8 L (24-29) mmol/L VBG O2 Saturation 58.4 L (60-80) % VBG Base Excess -6.6 L (-2 - +2) mmol/L Sodium (135-145) mmol/L Potassium (3.5-5.0) mmol/L Chloride (101-111) mmol/L Carbon Dioxide (21-32) mmol/L Anion Gap (6-13) BUN (6-20) mg/dL Creatinine (0.6-1.2) mg/dL Estimated GFR (MDRD) (>89) Glucose (70-100) mg/dL POC Whole Bld Glucose 409 H (70 - 100) mg/dL Lactic Acid (0.5-2.2) mmol/L Calcium (8.5-10.3) mg/dL Phosphorus (2.5-4.6) mg/dL Magnesium (1.7-2.8) mg/dL Total Bilirubin (0.2-1.0) mg/dL AST (10-42) IU/L ALT (10-60) IU/L Alkaline Phosphatase (42-121) IU/L Total Protein (6.7-8.2) g/dL Albumin (3.2-5.5) g/dL Globulin (2.1-4.2) g/dL Albumin/Globulin Ratio (1.0-2.2) Lipase (22-51) U/L TSH (0.34-5.60) uIU/mL PTH Intact (12-88) pg/mL Urine Color YELLOW Urine Clarity CLEAR (CLEAR) Urine pH 5.5 (5.0-7.5) PH Ur Specific [place] 1.025 (1.002-1.030) Urine Protein TRACE (NEGATIVE) mg/dL Urine Glucose (UA) >=1000 H (NEGATIVE) mg/dL Urine Ketones >=80 H (NEGATIVE) mg/dL Urine Occult Blood SMALL H (NEGATIVE) Urine Nitrite NEGATIVE (NEGATIVE) Urine Bilirubin NEGATIVE (NEGATIVE) Urine Urobilinogen 0.2 (NORMAL) (NORMAL) E.U./dL Ur Leukocyte Esterase NEGATIVE (NEGATIVE) Urine RBC 0-5 (0-5) /HPF Urine WBC 0-3 (0-3) /HPF Ur Squamous Epith Cells NONE SEEN (<= Few) Urine Bacteria None Seen (None Seen) /HPF Ur Microscopic Review INDICATED Urine Culture Comments NOT INDICATED Nasal Adenovirus (PCR) Nasal B. parapertussis DNA (PCR) Nasal Coronavir 229E PCR Nasal Coronavir HKU1 PCR Nasal Coronavir NL63 PCR Nasal Coronavir OC43 PCR Nasal Enterovir/Rhinovir PCR Nasal Influenza B PCR Nasal Influenza A PCR Nasal Parainfluen 1 PCR Nasal Parainfluen 2 PCR Nasal Parainfluen 3 PCR Nasal Parainfluen 4 PCR Nasal RSV (PCR) Nasal B.pertussis DNA PCR Nasal C.pneumoniae (PCR) Keith Human Metapneumo PCR Nasal M.pneumoniae (PCR) Nasal SARS-CoV-2 (PCR) Serum Ketones (NEGATIVE) 12/09/20 12/09/20 12/09/20 Range/Units 20:08 20:08 19:51 WBC (4.8-10.8) x10^3/uL RBC (4.70-6.10) 10^6/uL Hgb (14.0-18.0) g/dL Hct (42.0-52.0) % MCV (80.0-94.0) fL MCH (27.0-31.0) pg MCHC (32.0-36.0) g/dL RDW (12.0-15.0) % Plt Count (130-450) 10^3/uL MPV (7.4-11.4) fL Neut # (Auto) Lymph # (Auto) [place] # (Auto) Eos # (Auto) Baso # (Auto) Absolute Nucleated RBC Total Counted Band Neuts % (Manual) (0 - 10) % Abnorm Lymph % (Manual) % Nucleated RBC % Neutrophils # (Manual) (1.5-6.6) 10^3/uL Lymphocytes # (Manual) (1.5-3.5) 10^3/uL Monocytes # (Manual) (0.0-1.0) 10^3/uL Eosinophils # (Manual) (0-0.7) 10^3/uL Basophils # (Manual) (0-0.1) 10^3/uL Differential Comment WBC Morphology (NORMAL) Platelet Estimate (NORMAL) Platelet Morphology (NORMAL) RBC Morph Micro Appear (NORMAL) VBG pH (7.31-7.41) VBG pCO2 (41-51) mmHg VBG pO2 (25-47) mmHg VBG HCO3 (23-28) mmol/L VBG Total CO2 (24-29) mmol/L VBG O2 Saturation (60-80) % VBG Base Excess (-2 - +2) mmol/L Sodium (135-145) mmol/L Potassium (3.5-5.0) mmol/L Chloride (101-111) mmol/L Carbon Dioxide (21-32) mmol/L Anion Gap (6-13) BUN (6-20) mg/dL Creatinine (0.6-1.2) mg/dL Estimated GFR (MDRD) (>89) Glucose (70-100) mg/dL POC Whole Bld Glucose (70 - 100) mg/dL Lactic Acid 2.3 H (0.5-2.2) mmol/L Calcium (8.5-10.3) mg/dL Phosphorus (2.5-4.6) mg/dL Magnesium (1.7-2.8) mg/dL Total Bilirubin (0.2-1.0) mg/dL AST (10-42) IU/L ALT (10-60) IU/L Alkaline Phosphatase (42-121) IU/L Total Protein (6.7-8.2) g/dL Albumin (3.2-5.5) g/dL Globulin (2.1-4.2) g/dL Albumin/Globulin Ratio (1.0-2.2) Lipase (22-51) U/L TSH (0.34-5.60) uIU/mL PTH Intact 5 L (12-88) pg/mL Urine Color Urine Clarity (CLEAR) Urine pH (5.0-7.5) PH Ur Specific [place] (1.002-1.030) Urine Protein (NEGATIVE) mg/dL Urine Glucose (UA) (NEGATIVE) mg/dL Urine Ketones (NEGATIVE) mg/dL Urine Occult Blood (NEGATIVE) Urine Nitrite (NEGATIVE) Urine Bilirubin (NEGATIVE) Urine Urobilinogen (NORMAL) E.U./dL Ur Leukocyte Esterase (NEGATIVE) Urine RBC (0-5) /HPF Urine WBC (0-3) /HPF Ur Squamous Epith Cells (<= Few) Urine Bacteria (None Seen) /HPF Ur Microscopic Review Urine Culture Comments Nasal Adenovirus (PCR) Nasal B. parapertussis DNA (PCR) Nasal Coronavir 229E PCR Nasal Coronavir HKU1 PCR Nasal Coronavir NL63 PCR Nasal Coronavir OC43 PCR Nasal Enterovir/Rhinovir PCR Nasal Influenza B PCR Nasal Influenza A PCR Nasal Parainfluen 1 PCR Nasal Parainfluen 2 PCR Nasal Parainfluen 3 PCR Nasal Parainfluen 4 PCR Nasal RSV (PCR) Nasal B.pertussis DNA PCR Nasal C.pneumoniae (PCR) Keith Human Metapneumo PCR Nasal M.pneumoniae (PCR) Nasal SARS-CoV-2 (PCR) Serum Ketones SMALL H (NEGATIVE) 12/09/20 12/09/20 12/09/20 Range/Units 19:51 19:51 19:51 WBC 20.5 H (4.8-10.8) x10^3/uL RBC 5.47 (4.70-6.10) 10^6/uL Hgb 16.2 (14.0-18.0) g/dL Hct 46.4 (42.0-52.0) % MCV 84.8 (80.0-94.0) fL MCH 29.6 (27.0-31.0) pg MCHC 34.9 (32.0-36.0) g/dL RDW 13.2 (12.0-15.0) % Plt Count 291 (130-450) 10^3/uL MPV 10.0 (7.4-11.4) fL Neut # (Auto) Not Reportable Lymph # (Auto) Not Reportable [place] # (Auto) Not Reportable Eos # (Auto) Not Reportable Baso # (Auto) Not Reportable Absolute Nucleated RBC Not Reportable Total Counted 100 Band Neuts % (Manual) 2 (0 - 10) % Abnorm Lymph % (Manual) 0 % Nucleated RBC % Not Reportable Neutrophils # (Manual) 17.0 H (1.5-6.6) 10^3/uL Lymphocytes # (Manual) 3.3 (1.5-3.5) 10^3/uL Monocytes # (Manual) 0.2 (0.0-1.0) 10^3/uL Eosinophils # (Manual) 0.0 (0-0.7) 10^3/uL Basophils # (Manual) 0.0 (0-0.1) 10^3/uL Differential Comment MANUAL DIFFERENTIAL WBC Morphology 1+ TOXIC GRANULATION (NORMAL) Platelet Estimate NORMAL (130-450,000) (NORMAL) Platelet Morphology NORMAL APPEARANCE (NORMAL) RBC Morph Micro Appear NORMAL APPEARANCE (NORMAL) VBG pH (7.31-7.41) VBG pCO2 (41-51) mmHg VBG pO2 (25-47) mmHg VBG HCO3 (23-28) mmol/L VBG Total CO2 (24-29) mmol/L VBG O2 Saturation (60-80) % VBG Base Excess (-2 - +2) mmol/L Sodium 132 L (135-145) mmol/L Potassium 4.6 (3.5-5.0) mmol/L Chloride 84 L (101-111) mmol/L Carbon Dioxide 18 L (21-32) mmol/L Anion Gap 30.0 H (6-13) BUN 41 H (6-20) mg/dL Creatinine 1.4 H (0.6-1.2) mg/dL Estimated GFR (MDRD) 51 L (>89) Glucose 447 H (70-100) mg/dL POC Whole Bld Glucose 429 H (70 - 100) mg/dL Lactic Acid (0.5-2.2) mmol/L Calcium 14.2 H* (8.5-10.3) mg/dL Phosphorus (2.5-4.6) mg/dL Magnesium (1.7-2.8) mg/dL Total Bilirubin 2.1 H (0.2-1.0) mg/dL AST 16 (10-42) IU/L ALT 30 (10-60) IU/L Alkaline Phosphatase 140 H (42-121) IU/L Total Protein 8.7 H (6.7-8.2) g/dL Albumin 4.6 (3.2-5.5) g/dL Globulin 4.1 (2.1-4.2) g/dL Albumin/Globulin Ratio 1.1 (1.0-2.2) Lipase 25 (22-51) U/L TSH (0.34-5.60) uIU/mL PTH Intact (12-88) pg/mL Urine Color Urine Clarity (CLEAR) Urine pH (5.0-7.5) PH Ur Specific [place] (1.002-1.030) Urine Protein (NEGATIVE) mg/dL Urine Glucose (UA) (NEGATIVE) mg/dL Urine Ketones (NEGATIVE) mg/dL Urine Occult Blood (NEGATIVE) Urine Nitrite (NEGATIVE) Urine Bilirubin (NEGATIVE) Urine Urobilinogen (NORMAL) E.U./dL Ur Leukocyte Esterase (NEGATIVE) Urine RBC (0-5) /HPF Urine WBC (0-3) /HPF Ur Squamous Epith Cells (<= Few) Urine Bacteria (None Seen) /HPF Ur Microscopic Review Urine Culture Comments Nasal Adenovirus (PCR) Nasal B. parapertussis DNA (PCR) Nasal Coronavir 229E PCR Nasal Coronavir HKU1 PCR Nasal Coronavir NL63 PCR Nasal Coronavir OC43 PCR Nasal Enterovir/Rhinovir PCR Nasal Influenza B PCR Nasal Influenza A PCR Nasal Parainfluen 1 PCR Nasal Parainfluen 2 PCR Nasal Parainfluen 3 PCR Nasal Parainfluen 4 PCR Nasal RSV (PCR) Nasal B.pertussis DNA PCR Nasal C.pneumoniae (PCR) Keith Human Metapneumo PCR Nasal M.pneumoniae (PCR) Nasal SARS-CoV-2 (PCR) Serum Ketones (NEGATIVE) ABX Reporting Has patient been on IV antibiotics over the past 48 hours?: Yes Assessment/Plan - Problem List (1) DKA (diabetic ketoacidoses) Impression: On admission we suspected he had mild diabetic ketoacidosis given his elevated anion gap of 30 and a bicarbonate of 18. His pH 7.349 on VBG. Suspect the acidosis was due to mild DKA versus starvation ketoacidosis given his poor oral intake. We would have expected his bicarbonate to be much lower given the elevated anion gap but we wonder if there could be a component of metabolic alkalosis which could be milk-alkali syndrome from the calcium and vitamin D has been taking given he also has hypercalcemia. The DKA may also be secondary to the use of Jardiance. He is n.p.o. except for sips of clears. Given this was only mild DKA, we placed him on 50 units of Lantus 5/2 evening plus sliding scale. Selected Entries 12/09/20 12/09/20 12/09/20 19:52 20:50 22:25 Result (mg/dL) 429 409 306 12/09/20 12/10/20 23:42 05:31 Result (mg/dL) 359 255 I will add 3 units of short acting insulin on a fixed schedule every 6 while he is n.p.o. Once his glucose is consistently below 200 we will start feeding. (2) Hypercalcemia Conclusion/Plan: His calcium was elevated at 14.2 on admission. The etiology of this is not clear at the moment. Although he has been taking calcium carbonate and vitamin D, I am not sure that this is milk-alkali syndrome although it is on the differential as he could have a mixed acid-base secondary to the diabetic ketoacidosis and milk-alkali syndrome. CT the abdomen pelvis revealed no obvious mass to suggest a malignancy. His PTH is appropriately decreased at 5. We have been hydrating him at 200 cc an hour, he does not need zoledronic acid. Plan: Await vitamin D and PTH related protein levels Still holding off on ordering serum protein electrophoresis but it is not a consideration. (3) Nausea and vomiting Conclusion/Plan: This may be related to his diabetic ketoacidosis or due to cannabinoid hyperemesis syndrome. CT the abdomen pelvis revealed no evidence of obstruction. There was evidence of esophagitis likely due to his multiple episodes of vomiting over the past 3 days. At this time, he is improved from a nausea and vomiting standpoint. He is on Protonix daily. N.p.o. given the diabetic ketoacidosis but we anticipate starting to feed him soon. Zofran is not lasting long enough so I will add Compazine. (4) Acute kidney injury Conclusion/Plan: Suspect this is likely prerenal injury. His creatinine is elevated at 1.4 and his baseline is 0.7 although this is from labs over 5 years ago. Although his bladder was quite distended on CT the abdomen pelvis, there is no evidence of hydronephrosis. Suspect his injury is due to dehydration from the DKA. We have hydrated him, and his creatinine is come down to 1.1 today. Because of acute kidney injury we are holding off on giving him his lisinopril. Plan is to continue hydration till he is near normal. (5) Leukocytosis Conclusion/Plan: He was elevated on admission to 20.5 thousand. White cell count is still elevated today 20.6. Not much change from yesterday. Differential has normal appearance of white cell morphology. His hemoglobin is normal and MCV is normal as well as platelets. So far no evidence of infection and we think the lactic acidosis was elevated from Metformin. Plan: Continue to monitor for signs and symptoms of infection No antibiotics for now (6) History of coronary artery disease Conclusion/Plan: Stable. We will resume his home aspirin, statin, metoprolol. (7) BPH (benign prostatic hyperplasia) Conclusion/Plan: The CT of the abdomen pelvis did reveal a distended bladder. His postvoid resid ual was 400 mL. We will continue his Flomax and bladder scan as needed.
--- NOTE | 2020-12-10 08:12 | CT Report ---
PROCEDURE: Abdomen/Pelvis W INDICATIONS: hypercalcemia/vomiting CONTRAST: IV CONTRAST: Isovue 300 ml: 100 PO CONTRAST: *NO PO CONTRAST TECHNIQUE: After the administration of nonionic contrast, 5 mm thick sections acquired from the diaphragms to th e symphysis. 5 mm thick coronal and sagittal reformats were acquired. For radiation dose reduction, the following was used: automated exposure control, adjustment of mA and/or kV according to patient size. COMPARISON: CT abdomen without contrast 06/03/2013. FINDINGS: Image quality: Excellent. ABDOMEN: Lung bases: Lung bases are clear. Heart size is normal. Solid organs: Liver and spleen are normal in size and enhancement. Gallbladder appears normal Bili iris system is non dilated. Pancreas enhances normally. No adrenal nodules. Kidneys demonstrate nor mal size and enhancement, without hydronephrosis. There is a 6 x 8 mm calculus at the mid kidney on t he right, nonobstructive. Peritoneum and bowel: Bowel loops demonstrate normal wall thickness and caliber. No free fluid or a ir. Portions of the transverse colon are not well visualized due to absence of gas filling. A defini te colitis is not found in this area. Nodes and vessels: No retroperitoneal or mesenteric adenopathy by size criteria. Aorta and inferior vena cava are normal in size. Miscellaneous: No ventral hernias. PELVIS: Genitourinary: Bladder wall thickness is normal. Miscellaneous: No inguinal hernias or adenopathy. Bones: No suspicious bony lesions. No vertebral body compression fractures. IMPRESSION: A definite source of emesis and nausea is not found. Portions of the transverse colon ar e relatively poorly seen due to absence of gas within the colon but a pattern of definite colitis is not seen. Incidental note is made of a 6 x 8 mm calculus that is nonobstructive at the right mid kidn ey, without adjacent renal inflammation. A normal or abnormal appendix or evidence of diverticulitis was not seen within the pelvis. Reviewed by: Trey Thomas MD on 12/10/2020 8:10 AM PDT Approved by: Trey Thomas MD on 12/10/2020 8:10 AM PDT Station ID: [id number]
--- NOTE | 2020-12-10 08:15 | CT Report ---
PROCEDURE: CHEST W INDICATIONS: hypercalcemia/vomiting CONTRAST: IV CONTRAST: Isovue 300 ml: 100 PO CONTRAST: *NO PO CONTRAST TECHNIQUE: After the administration of intravenous contrast, 5 mm thick sections acquired from the pulmonary api abdiel to the posterior costophrenic angles. 7 mm thick coronal MIP reformats were acquired. For radia tion dose reduction, the following was used: automated exposure control, adjustment of mA and/or kV according to patient size. COMPARISON: Comparison chest CT 06/22/2015. FINDINGS: Image quality: Excellent. Lungs and pleura: No acute air space opacities. No pleural effusions or pneumothorax. Central and peripheral airways are patent and normal in caliber. Mediastinum: Heart size is normal. No pericardial effusion. No mediastinal or hilar adenopathy by size criteria. Thoracic aorta and central pulmonary arteries are normal in size. Esophagus is luz l in caliber but demonstrates a generalized prominence of the esophageal wall. No hiatal hernia. Bones and chest wall: No suspicious bony lesions. No vertebral body compression fractures. No axil omar or supraclavicular adenopathy by size criteria. Thyroid gland appears normal where well seen.. Abdomen: Visualized upper abdominal solid organs appear normal. Upper abdominal bowel loops are nor mal in caliber. IMPRESSION: No pneumonia or pulmonary neoplasm found. The esophageal wall is noted to be mildly thickened, chroni city and etiology uncertain. Please correlate clinically to assist in determining whether endoscopy o r upper GI examination may be warranted. Reviewed by: Trey Thomas MD on 12/10/2020 8:14 AM PDT Approved by: Trey Thomas MD on 12/10/2020 8:14 AM PDT Station ID: [id number]
[2020-12-10] MEDS: PANTOPRAZOLE 40 MG TABLET PO SCH (08:27)
[2020-12-10] MEDS: ASPIRIN EC 81 MG TABLET PO SCH (08:27)
[2020-12-10] MEDS: ENOXAPARIN 40 MG/0.4 ML SYRINGE SUBQ SCH (08:27)
[2020-12-10] MEDS: SODIUM CHLORIDE FLUSH 0.9% 10 ML SYRINGE IVP SCH ×3 (08:29→23:40)
[2020-12-10] MEDS ORDERED: PNEUMOCOCCAL 13-VALENT CONJ 0.5 ML SYRINGE IM ONE (09:00)
[2020-12-10] MEDS ORDERED: PROCHLORPERAZINE 10 MG/2 ML VIAL IVP PRN (10:14)
--- NOTE | 2020-12-10 10:27 | PHARMACY PROGRESS NOTE ---
- Best Possible Medication History Admit Date and Time: 12/09/20 5014 Processed by: Pharmacy Medication History completed: Yes Patient Interview: Completed Secondary Source(s): Physician records, Pharmacy records, Insurance records (PATIENT INTERVIEWED BY PHARMACY. PATIENT'S CALLED TO OBTAIN MEDICATION LIST. PATIENT AND UNSURE ON INSULINS AND DOSAGES ) As the person ultimately responsible for medication therapy, providers are able to order a medication from an existing home medication list in [facility] via the "Reconcile Routine" prior to Confirmation of that medication by sales support coordinator. Such practice is discouraged except when the physician, in their clinical judgment, deems that a medical need exists for a medication without regard to previous use.
[2020-12-10] MEDS: SODIUM CHLORIDE FLUSH 0.9% 10 ML SYRINGE IVP PRN (11:49)
[2020-12-10 12:14] LABS: ESTIMATED AVERAGE GLUCOSE 358 mg/dL (70-100); HEMOGLOBIN A1c% 14.1 % (4.27-6.07)
[2020-12-10] MEDS: INSULIN ASPART 300 UNIT/3 ML PEN SUBQ SCH ×3 (16:44→21:23)
[2020-12-10] MEDS: DEXTROSE 5%-0.45% NACL 1,000 ML IV SCH ×2 (17:35→17:36)
[2020-12-10] MEDS ORDERED: SODIUM CHLORIDE 0.9% 1,000 ML IV SCH (20:00)
[2020-12-10] MEDS: ATORVASTATIN 40 MG TABLET PO SCH (20:46)
[2020-12-10] MEDS: TAMSULOSIN 0.4 MG CAPSULE PO SCH (20:46)
[2020-12-10] MEDS: INSULIN GLARGINE 300 UNIT/3 ML PEN SUBQ SCH (20:47)
[2020-12-10] MEDS ORDERED: INSULIN REGULAR HUMAN 300 UNIT/3 ML VIAL SUBQ SCH (21:00)
[2020-12-11] MEDS: SODIUM CHLORIDE 0.9% 1,000 ML IV SCH ×2 (02:55→05:19)
[2020-12-11 05:23] LABS: BASOPHILS % (AUTO) 0.2 %; EOSINOPHILS % (AUTO) 0.2 %; HCT - HEMATOCRIT 39.7 % (42.0-52.0); HGB - HEMOGLOBIN 13.8 g/dL (14.0-18.0); LYMPHOCYTES # (AUTO) 1.8 10^3/uL (1.5-3.5); LYMPHOCYTES % (AUTO) 14.3 %; MEAN CORPUSCULAR HEMOGLOBIN 29.6 pg (27.0-31.0); MEAN CORPUSCULAR HGB CONC 34.8 g/dL (32.0-36.0); MEAN PLATELET VOLUME 9.9 fL (7.4-11.4); MONOCYTES # (AUTO) 1.2 10^3/uL (0.0-1.0); MONOCYTES % (AUTO) 9.1 %; NEUTROPHILS # (AUTO) 9.6 10^3/uL (1.5-6.6); NEUTROPHILS % (AUTO) 75.8 %; PLT - PLATELET COUNT 181 10^3/uL (130-450); RED BLOOD COUNT 4.67 10^6/uL (4.70-6.10); RED CELL DISTRIBUTION WIDTH 13.1 % (12.0-15.0); WHITE BLOOD COUNT 12.6 x10^3/uL (4.8-10.8)
[2020-12-11 05:44] LABS: CALCIUM 9.1 mg/dL (8.5-10.3); CREATININE 0.7 mg/dL (0.6-1.2); MAGNESIUM 1.6 mg/dL (1.7-2.8); PHOSPHORUS 1.7 mg/dL (2.5-4.6); POTASSIUM 3.3 mmol/L (3.5-5.0)
[2020-12-11] MEDS: PANTOPRAZOLE 40 MG TABLET PO SCH (05:51)
[2020-12-11] MEDS: ENOXAPARIN 40 MG/0.4 ML SYRINGE SUBQ SCH (07:56)
[2020-12-11] MEDS: ASPIRIN EC 81 MG TABLET PO SCH (07:56)
[2020-12-11] MEDS: SODIUM CHLORIDE FLUSH 0.9% 10 ML SYRINGE IVP SCH (07:57)
[2020-12-11] MEDS ORDERED: NEUTRA-PHOS 250 MG TABLET PO ONE (08:00)
[2020-12-11] MEDS ORDERED: POTASSIUM CHLORIDE 20 MEQ TABLET PO ONE (08:00)
[2020-12-11] MEDS: INSULIN ASPART 300 UNIT/3 ML PEN SUBQ SCH ×3 (08:01→12:15)
[2020-12-11] MEDS ORDERED: MAGNESIUM SULFATE 2 GRAM 2 GM/50 ML BAG IV ONE (08:30)
[2020-12-11] MEDS ORDERED: METOPROLOL TARTRATE 25 MG TABLET PO SCH (09:00)
[2020-12-11] MEDS ORDERED: lisinopriL 5 MG TABLET PO SCH (09:00)
[2020-12-11] MEDS: METOCLOPRAMIDE 10 MG TABLET PO SCH ×2 (09:21→10:36)
[2020-12-11] MEDS: SODIUM CHLORIDE FLUSH 0.9% 10 ML SYRINGE IVP PRN (09:23)
--- NOTE | 2020-12-11 11:29 | DISCHARGE SUMMARY ---
Discharge Summary Admit Date: 12/09/20 Discharge Date: 12/11/20 Discharging Provider: Rosita La Primary Care Provider: Betsy Ngo Code Status: Attempt Resuscitation Condition at Discharge: Stable Discharge Disposition: 01 Home, Self Care - DIAGNOSES Admission Diagnoses: DKA Hypercalcemia Nausea and vomiting Acute kidney injury Leukocytosis History of coronary artery disease BPH Discharge Diagnoses with Status of Each Condition: DKA: Acute. Resolved Hypercalcemia: Acute. Resolved Nausea and vomiting: Acute. Resolved Acute kidney injury: Acute. Resolved Leukocytosis: Acute. Resolved History of coronary artery disease: Chronic BPH: Chronic - HPI History of Present Illness: This is a 65-year-old male with a past medical history significant for type 2 diabetes mellitus treated with insulin, coronary artery disease who presents today complaining of nausea and vomiting for the past 2 days. He states his symptoms began 3 days ago and have persisted. He has been unable to tolerate any food and only minimal liquids. He states anything he tries to consume he vomits right away. He does complain of heartburn for which he has been taking Tums on a daily basis for the past few days. He tells me he takes Tums on and off for many years but he has taken about 10 tablets over the past 3 days for heartburn associated with vomiting. He reports no chest pain, dyspnea, cough. Denies any fevers, chills. He reports no abdominal pain, dysuria. He does report frequency and urgency as well as polyuria. He states he is was to be on insulin for his diabetes but he ran out a few weeks ago and went on a trip and he never got a refill. He states his blood glucose to be well controlled with an A1c around 7% but he states his blood glucose has been poorly controlled lately. He only checks it once a week at most. He states he has been on Jardiance for about 6 months from what he can remember. He tells me he does take vitamin D [id number]-[id number] but he does not know the dose. He is not on a thiazide and denies a personal history of cancer. He reports having a colono scopy recently which was unremarkable. He admits to marijuana use about 3-4 times a week. He states his nausea is relieved by warm showers. In the emergency department, he was found to be afebrile. His heart is in the 90s. Blood pressure was 108/64. He was not tachypneic and saturating well on room air. His labs were significant for a white count of 20.5 with a left shift. His bicarbonate was 18, anion gap 30, BUN 41, creatinine 1.4. His blood glucose 447 and his calcium 14.2. Serum ketones were small. His urinalysis revealed ketones and glucosuria with no pyuria or bacteriuria. He was given 2 L normal saline as well as 6 units of IV insulin. He underwent a CT the abdomen pelvis as well as chest which revealed some esophagitis but no obvious mass. Given the above findings, medicine was consulted for admission. I did discuss goals of care with the patient and he would like to be a full code. - HOSPITAL COURSE Hospital Course: Patient's DKA was treated with IV hydration using normal saline, Lantus and sliding scale insulin. His hemoglobin A1c done on December 10, 2020 was 14.1. Diet at time of discharge his anion gap was 6.0. He was discharged home on his regular home regimen, advised to be compliant with his regimen and advised to follow-up with his primary care physician for adjustments to his diabetic regiment. His nausea and vomiting was managed with Zofran. By the time of discharge this had improved/resolved. It is thought that this nausea and vomiting it as a result of the DKA but also due to the patient's cannabinoid use. He has been advised to abstain from using cannabinoids. It is also likely the patient has gastroparesis. As a result upon discharge he is prescribed Reglan 10 mg p.o. before every meal and at bedtime. His hypercalcemia was addressed with IV hydration. By the time of discharge his calcium level was 9.1. It is suspected that the patient's high calcium level of 14 at time of admission was due to excessive Tums use in addition to vitamin D supplements and increased milk fortified consumption. He was advised to minimize the use of Tums. To Tums every 12 hours should be sufficient for heartburn. CT of the chest, abdomen and pelvis which was done on 12/10/20 was negative for any mass. By the time of discharge patient's acute kidney injury had resolved. His creatinine of 1.4 had improved to his baseline of 0.7. Patient's other electrolytes specifically potassium, magnesium and phosphorus were replaced prior to discharge Patient is advised to follow-up with his primary care physician within 7 business days. - ALLERGIES Allergies/Adverse Reactions: Allergies Allergy/AdvReac Type Severity Reaction Status Date / Time No Known Drug Allergies Allergy Verified 12/09/20 19:43 - MEDICATIONS Home Medications: Ambulatory Orders Medication Instructions Recorded Confirmed Aspirin [Aspir 81] 81 mg PO DAILY 03/13/14 12/09/20 Cyclobenzaprine [Flexeril] 10 mg PO TID PRN #20 tablet 03/13/14 12/09/20 Insulin Glargine [Lantus] 50 units SQ DAILY 03/13/14 12/09/20 Lisinopril 5 mg PO DAILY 03/13/14 12/09/20 Metformin HCl 1,000 mg PO BID 03/13/14 12/09/20 Atorvastatin Calcium [Lipitor] 80 mg PO DAILY 12/09/20 12/09/20 Empagliflozin [Jardiance] 10 mg PO DAILY 12/09/20 12/09/20 Metoprolol Tartrate [Lopressor] 12.5 mg PO BID 12/09/20 12/10/20 Tamsulosin [Flomax] 0.4 mg PO DAILY PM 12/09/20 12/09/20 DULoxetine [Cymbalta] 30 mg PO BID 12/10/20 12/10/20 Insulin Degludec [Tresiba 12/10/20 Flextouch U-200] Liraglutide [Victoza 2-Jaime] 0.6 mg SQ .QWEEK 12/10/20 Metoclopramide [Reglan] 10 mg PO ACHS 5 Days #20 tablet 12/11/20 - PHYSICAL EXAM AT DISCHARGE General Appearance: positive: No acute distress, Alert Eyes Bilateral: positive: PERRL, EOMI ENT: positive: No signs of dehydration Neck: positive: No JVD, Trachea midline Respiratory: positive: Chest non-tender, No respiratory distress, Breath sounds nml. negative: Wheezes, Rales, Rhonchi Cardiovascular: positive: Regular rate & rhythm, No murmur Abdomen: positive: Non-tender, Nml bowel sounds, No distention. negative: Guarding, Rebound Back: positive: Nml inspection Skin: positive: Color nml, No rash, Warm, Dry Extremities: positive: Non-tender, Full ROM, Nml appearance, No pedal edema Neurologic/Psychiatric: positive: Oriented x3, Mood/affect nml - LABS Result Diagrams: 12/11/20 04:55 12/11/20 04:55 - TIME SPENT Time Spent in Discharge (Minutes): 25
--- NOTE | 2020-12-11 11:37 | Discharge Plan ---
Discharge Plan Problem Reviewed?: Yes Disposition: Home, Self Care Condition: Stable Prescriptions: Metoclopramide [Reglan] 10 mg PO ACHS 5 Days #20 tablet Diet: Diabetic Activity Restrictions: Activity as Tolerated Weight Bearing: Full Weight Health Concerns: You were admitted with mild DKA, Nausea and vomiting and hypercalcemia. The nausea and vomiting is likely due to the DKA and use of cannabinoids. The hypercalcemia is likely due to taking a significant amount of calcium carbonate in the form of Tums, vitamin D supplement and also significant amount of milk. You received IV hydration with normal saline and Lantus and sliding scale insulin. DKA resolved. Your hemoglobin A1c was 14. You are to follow-up with your primary care physician for adjustment of your diabetes regimen. You are also encouraged to be more compliant with your insulin. You expressed understanding and stated that your is very involved in management of your diabetic medications. Also that she had picked up refills of your medications from the pharmacy today. We will see him level came back to normal weight just IV hydration. By the time of discharge your calcium level was 9. You have been advised to minimize amount of Tums. You have been Advised to stop using cannabinoids/marijuana. For possible gastroparesis you are being discharged home with 5 days prescription of Reglan to take 10 mg p.o. before every meal and at bedtime. You also had acute kidney injury which was thought to be secondary to dehydration from DKA. This improved with IV hydration and by the time of discharge he will creatinine level was back to baseline of 0.7 with an estimated GFR of 113. You expressed understanding of the above plan and are in agreement with the plan. Plan of Treatment: You were admitted with mild DKA, Nausea and vomiting and hypercalcemia. The nausea and vomiting is likely due to the DKA and use of cannabinoids. The hypercalcemia is likely due to taking a significant amount of calcium carbonate in the form of Tums, vitamin D supplement and also significant amount of milk. You received IV hydration with normal saline and Lantus and sliding scale insulin. DKA resolved. Your hemoglobin A1c was 14. You are to follow-up with your primary care physician for adjustment of your diabetes regimen. You are also encouraged to be more compliant with your insulin. You expressed understanding and stated that your is very involved in management of your diabetic medications. Also that she had picked up refills of your medications from the pharmacy today. We will see him level came back to normal weight just IV hydration. By the time of discharge your calcium level was 9. You have been advised to minimize amount of Tums. You have been Advised to stop using cannabinoids/marijuana. For possible gastroparesis you are being discharged home with 5 days prescription of Reglan to take 10 mg p.o. before every meal and at bedtime. You also had acute kidney injury which was thought to be secondary to dehydration from DKA. This improved with IV hydration and by the time of discharge he will creatinine level was back to baseline of 0.7 with an estimated GFR of 113. You expressed understanding of the above plan and are in agreement with the plan. Care Goals: You were admitted with mild DKA, Nausea and vomiting and hypercalcemia. The nausea and vomiting is likely due to the DKA and use of cannabinoids. The hypercalcemia is likely due to taking a significant amount of calcium carbonate in the form of Tums, vitamin D supplement and also significant amount of milk. You received IV hydration with normal saline and Lantus and sliding scale insulin. DKA resolved. Your hemoglobin A1c was 14. You are to follow-up with your primary care physician for adjustment of your diabetes regimen. You are also encouraged to be more compliant with your insulin. You expressed understanding and stated that your is very involved in management of your diabetic medications. Also that she had picked up refills of your medications from the pharmacy today. We will see him level came back to normal weight just IV hydration. By the time of discharge your calcium level was 9. You have been advised to minimize amount of Tums. You have been Advised to stop using cannabinoids/marijuana. For possible gastroparesis you are being discharged home with 5 days prescription of Reglan to take 10 mg p.o. before every meal and at bedtime. You also had acute kidney injury which was thought to be secondary to dehydration from DKA. This improved with IV hydration and by the time of discharge he will creatinine level was back to baseline of 0.7 with an estimated GFR of 113. You expressed understanding of the above plan and are in agreement with the plan. Assessment: You were admitted with mild DKA, Nausea and vomiting and hypercalcemia. The nausea and vomiting is likely due to the DKA and use of cannabinoids. The hypercalcemia is likely due to taking a significant amount of calcium carbonate in the form of Tums, vitamin D supplement and also significant amount of milk. You received IV hydration with normal saline and Lantus and sliding scale insulin. DKA resolved. Your hemoglobin A1c was 14. You are to follow-up with your primary care physician for adjustment of your diabetes regimen. You are also encouraged to be more compliant with your insulin. You expressed understanding and stated that your is very involved in management of your diabetic medications. Also that she had picked up refills of your medications from the pharmacy today. We will see him level came back to normal weight just IV hydration. By the time of discharge your calcium level was 9. You have been advised to minimize amount of Tums. You have been Advised to stop using cannabinoids/marijuana. For possible gastroparesis you are being discharged home with 5 days prescription of Reglan to take 10 mg p.o. before every meal and at bedtime. You also had acute kidney injury which was thought to be secondary to dehydration from DKA. This improved with IV hydration and by the time of discharge he will creatinine level was back to baseline of 0.7 with an estimated GFR of 113. You expressed understanding of the above plan and are in agreement with the plan. No Smoking: If you smoke, Please STOP! Call for help. Follow-up with: Betsy Ngo ARNP [Primary Care Provider] -
[2020-12-11] MEDS ORDERED: INSULIN ASPART 300 UNIT/3 ML PEN SUBQ SCH (12:00)
[2020-12-11] MEDS ORDERED: MAGNESIUM OXIDE 400 MG TABLET PO ONE (12:00)
[2020-12-11 12:10] VITALS: BP 145/99
== END 2020-12-11 13:50 | disposition home or self-care (01) | DRG 917 ==
LOC: ED 19:28 → MS2 22:15
PROVIDERS: ADMIT Internal Medicine; ATTEND Internal Medicine
DX: T47.1X1A Poisoning by other antacids and anti-gastric-secretion drugs, accidental (unintentional), initial encounter (principal); E11.10 Type 2 diabetes mellitus with ketoacidosis without coma; N17.9 Acute kidney failure, unspecified; E83.52 Hypercalcemia; T45.2X1A Poisoning by vitamins, accidental (unintentional), initial encounter; D72.829 Elevated white blood cell count, unspecified; T38.3X6A Underdosing of insulin and oral hypoglycemic [antidiabetic] drugs, initial encounter; Z91.128 Patient's intentional underdosing of medication regimen for other reason; K21.00 Gastro-esophageal reflux disease with esophagitis, without bleeding; E11.43 Type 2 diabetes mellitus with diabetic autonomic (poly)neuropathy; K31.84 Gastroparesis; E86.0 Dehydration; R11.2 Nausea with vomiting, unspecified; I25.10 Atherosclerotic heart disease of native coronary artery without angina pectoris; E78.00 Pure hypercholesterolemia, unspecified; N40.1 Benign prostatic hyperplasia with lower urinary tract symptoms; R35.0 Frequency of micturition; R39.15 Urgency of urination; R10.9 Unspecified abdominal pain; R39.198 Other difficulties with micturition; G89.29 Other chronic pain; M54.9 Dorsalgia, unspecified; Z72.89 Other problems related to lifestyle; Z79.4 Long term (current) use of insulin; Z79.82 Long term (current) use of aspirin; Z79.899 Other long term (current) drug therapy
CPT/HCPCS: 36415; 71260; 74177; 80048; 80053; 81001; 82009; 82306; 82803; 83036; 83519; 83605; 83690; 83735; 83970; 84100; 84443; 85025; 87631; 90670; 93005; 96374; 96375; 97116; 97161; 99283; 99285; A9270; J1170; J1650; J1815; J2765; Q9967; 0202U; 81003; 87086

== ENCOUNTER 2021-02-10 17:00 | Emergency (ER) | payer MEDICARE, OTHER ==
[2021-02-10] MEDS ORDERED: DOXYCYCLINE 100 MG TABLET PO STA (18:29)
--- NOTE | 2021-02-10 18:32 | ED Physician Documentation ---
History of Present Illness - Stated complaint Stated Complaint: LT FOOT PX/OOZE *DIABETIC* - Chief complaint Chief Complaint: Ext Problem - History obtained from History obtained from: Patient - Additonal information Additional information: Pt comes to the ED for CC of wound on sole of L foot for the past several days. About a week ago, pt got new shoes with orthotics. He states he can't feel his feet, due to diabetic neuropathy, and began to notice formation of a sore/ulcer. He states he has been trying to care for the wound and keep it clean. He has noticed some intermittent drainage, though the wound seems to be doing a little better now. Pt noticed a purplish erythema on the sole of his foot, and was worried about infection spreading. No distinct trauma that pt knows of. No fevers. No streaking. Pt does not feel ill. He has already lost his great toe on the other foot. Review of Systems Ten Systems: 10 systems reviewed and negative Constitutional: reports: Reviewed and negative Eyes: reports: Reviewed and negative Ears: reports: Reviewed and negative Nose: reports: Reviewed and negative Throat: reports: Reviewed and negative Cardiac: reports: Reviewed and negative Respiratory: reports: Reviewed and negative GI: reports: Reviewed and negative : reports: Reviewed and negative Skin: reports: Other (diabetic foot wound) Musculoskeletal: reports: Reviewed and negative Neurologic: reports: Reviewed and negative Psychiatric: reports: Reviewed and negative Endocrine: reports: Reviewed and negative Immunocompromised: reports: Reviewed and negative PD PAST MEDICAL HISTORY - Past Medical History Past Medical History: Yes Cardiovascular: Hypertension, High cholesterol, Coronary artery disease Respiratory: Sleep apnea Neuro: Peripheral neuropathy Endocrine/Autoimmune: Type 2 diabetes GI: GERD, Other : Benign prostate hypertrophy HEENT: None Psych: None Musculoskeletal: Chronic back pain Derm: Other - Past Surgical History Past Surgical History: Yes General: Colonoscopy Ortho: Rotator cuff repair, Spine surgery, Amputation Cardiovascular: CABG - Present Medications Home Medications: Ambulatory Orders Medication Instructions Recorded Confirmed Aspirin [Aspir 81] 81 mg PO DAILY 03/13/14 02/10/21 Cyclobenzaprine [Flexeril] 10 mg PO TID PRN #20 tablet 03/13/14 02/10/21 Lisinopril 5 mg PO DAILY 03/13/14 02/10/21 Metformin HCl 1,000 mg PO BID 03/13/14 02/10/21 Atorvastatin Calcium [Lipitor] 80 mg PO DAILY 12/09/20 02/10/21 Empagliflozin [Jardiance] 10 mg PO DAILY 12/09/20 02/10/21 Metoprolol Tartrate [Lopressor] 12.5 mg PO BID 12/09/20 02/10/21 Tamsulosin [Flomax] 0.4 mg PO DAILY PM 12/09/20 02/10/21 DULoxetine [Cymbalta] 30 mg PO BID 12/10/20 02/10/21 Insulin Degludec [Tresiba 55 unit SQ DAILY 12/10/20 02/10/21 Flextouch U-200] Liraglutide [Victoza 2-Jaime] 1.8 mg SQ .QWEEK 12/10/20 02/10/21 Metoclopramide [Reglan] 10 mg PO ACHS 5 Days #20 tablet 12/11/20 02/10/21 Doxycycline Monohydrate 100 mg PO BID #14 02/10/21 - Allergies Allergies/Adverse Reactions: Allergies Allergy/AdvReac Type Severity Reaction Status Date / Time No Known Drug Allergies Allergy Verified 02/10/21 17:15 - Social History Does the pt smoke?: No Smoking Status: Never smoker Does the pt drink ETOH?: No Does the pt have substance abuse?: Yes Substance Use and Type: Marijuana - Immunizations Immunizations are current?: Yes PD ED PE NORMAL - Vitals Vital signs reviewed: Yes - General General: Alert and oriented X 3, No acute distress, Well developed/nourished - HEENT HEENT: Atraumatic, PERRL, EOMI, Moist mucous membranes - Neck Neck: Supple, no meningeal sign - Cardiac Cardiac: Strong equal pulses - Respiratory Respiratory: No respiratory distress - Derm Derm: Normal color, Warm and dry, No rash, Other (Dry plantar wound L foot. No drainage expressible. Erythema with what appears to be contusion proximally. ) - Extremities Extremities: No deformity - Neuro Neuro: Alert and oriented X 3 - Psych Psych: Normal mood, Normal affect Results - Vitals Vitals: Vital Signs - 24 hr 02/10/21 02/10/21 02/10/21 17:08 17:46 17:52 Temperature 37.2 C 36.7 C Heart Rate 100 95 92 Respiratory 18 18 18 Rate Blood Pressure 88/58 L 99/66 103/69 O2 Saturation 99 98 98 07/04/21 18:39 Temperature 36.9 C Heart Rate 88 Respiratory 16 Rate Blood Pressure 107/70 O2 Saturation 97 Oxygen O2 Source Room air PD MEDICAL DECISION MAKING - ED course Complexity details: considered differential, d/w patient ED course: The wound did not look terribly bad, but given his high-risk situation, I felt pt should have antibiotic coverage. He was started on doxycycline, and I have stressed the importance of close follow-up. We have discussed the usual indications for return. Departure - Departure Disposition: 01 Home, Self Care Condition: Stable Instructions: Diabetes Treat Minor Foot Infecs, Diabetic Foot Ulcer Dc, ED Foot Care Diabetic Follow-Up: Marcela Calvillo DPM [Provider Admit Priv/Credential] - Prescriptions: Doxycycline Monohydrate 100 mg PO BID #14 Comments: Please take the antibiotics as directed, and continue the excellent wound care you have been doing. Please follow up with your doctor or podiatry within the next week to have your foot rechecked and determine the next steps in care. Discharge Date/Time: 02/10/21 18:51
[2021-02-10 18:40] VITALS: BP 107/70
== END 2021-02-10 18:51 | disposition home or self-care (01) ==
LOC: ED 17:00
DX: E11.621 Type 2 diabetes mellitus with foot ulcer (principal); E11.42 Type 2 diabetes mellitus with diabetic polyneuropathy; L97.429 Non-pressure chronic ulcer of left heel and midfoot with unspecified severity; Z79.84 Long term (current) use of oral hypoglycemic drugs
CPT/HCPCS: 99282; 99284; A9270

== ENCOUNTER 2021-10-31 14:17 | Emergency (ER) | payer MEDICARE, OTHER ==
[2021-10-31 14:56] LABS: BASOPHILS # (AUTO) 0.1 10^3/uL (0.0-0.1); BASOPHILS % (AUTO) 0.4 %; HCT - HEMATOCRIT 51.6 % (42.0-52.0); HGB - HEMOGLOBIN 17.7 g/dL (14.0-18.0); LYMPHOCYTES # (AUTO) 2.1 10^3/uL (1.5-3.5); LYMPHOCYTES % (AUTO) 9.5 %; MEAN CORPUSCULAR HEMOGLOBIN 29.5 pg (27.0-31.0); MEAN CORPUSCULAR HGB CONC 34.3 g/dL (32.0-36.0); MEAN PLATELET VOLUME 9.9 fL (7.4-11.4); MONOCYTES # (AUTO) 1.9 10^3/uL (0.0-1.0); MONOCYTES % (AUTO) 8.6 %; NEUTROPHILS # (AUTO) 17.7 10^3/uL (1.5-6.6); PLT - PLATELET COUNT 258 10^3/uL (130-450); RED CELL DISTRIBUTION WIDTH 13.6 % (12.0-15.0); WHITE BLOOD COUNT 21.9 x10^3/uL (4.8-10.8)
[2021-10-31 14:59] LABS: KETONES, SERUM (ACETEST) SMALL (NEGATIVE); SLIDE REVIEW? Indicated
[2021-10-31 15:08] LABS: ALBUMIN 4.3 g/dL (3.2-5.5); ALBUMIN/GLOBULIN RATIO 1.2 (1.0-2.2); ALKALINE PHOSPHATASE 88 IU/L (42-121); ALT ALANINE AMINOTRANSFERASE 32 IU/L (10-60); AST ASPARTATE AMINOTRANSFERASE 26 IU/L (10-42); BILIRUBIN,TOTAL 1.5 mg/dL (0.2-1.0); BUN - BLOOD UREA NITROGEN 27 mg/dL (6-20); CALCIUM 9.9 mg/dL (8.5-10.3); CARBON DIOXIDE - CO2 22 mmol/L (21-32); CHLORIDE 91 mmol/L (101-111); CREATININE 1.1 mg/dL (0.6-1.2); GFR - MDRD 67 (>89); GLUCOSE 269 mg/dL (70-100); MAGNESIUM 1.6 mg/dL (1.7-2.8); SODIUM 133 mmol/L (135-145); TOTAL PROTEIN 7.8 g/dL (6.7-8.2)
[2021-10-31 15:10] LABS: VBG PCO2 33.1 mmHg (41-51); VBG PH 7.457 (7.31-7.41); VBG PO2 20.1 mmHg (25-47)
[2021-10-31 15:11] LABS: VBG HCO3 22.9 mmol/L (23-28); VBG OXYGEN SATURATION 40.1 % (60-80); VBG TOTAL CO2 23.9 mmol/L (24-29)
[2021-10-31] MEDS ORDERED: SODIUM CHLORIDE 0.9% 1,000 ML IV STA (15:24)
[2021-10-31 15:27] LABS: PLATELET ESTIMATE, MANUAL NORMAL (130-450,000) (NORMAL); PLATELET MORPHOLOGY NORMAL APPEARANCE (NORMAL); RBC MORPHOLOGY (MULTIPLE) NORMAL APPEARANCE (NORMAL); WBC MORPHOLOGY (MULTIPLE) 1+ REACTIVE LYMPHS (NORMAL)
[2021-10-31] MEDS ORDERED: LACTATED RINGERS 1,000 ML IV STA (15:30)
[2021-10-31] MEDS ORDERED: ONDANSETRON 4 MG/2 ML VIAL IVP STA (15:30)
--- NOTE | 2021-10-31 15:32 | ED Physician Documentation ---
PD HPI NVD - Stated complaint Stated Complaint: VOMITING/NAUSEA - Chief complaint Chief Complaint: Abd Pain - History obtained from History obtained from: Patient - Additonal information Additional information: 65-year-old gentleman with type 2 diabetes presents with 2 days of nausea and vomiting. It is not associated with significant abdominal pain or changes in his bowel movements. He feels very dehydrated and cannot drink anything. No headache or chest pain. Review of Systems Ten Systems: 10 systems reviewed and negative Constitutional: denies: Fever, Chills Eyes: reports: Reviewed and negative Nose: reports: Reviewed and negative Throat: reports: Reviewed and negative Cardiac: reports: Reviewed and negative Respiratory: reports: Reviewed and negative PD PAST MEDICAL HISTORY - Past Medical History Cardiovascular: Hypertension, High cholesterol, Coronary artery disease Respiratory: Sleep apnea Neuro: Peripheral neuropathy Endocrine/Autoimmune: Type 2 diabetes GI: GERD, Other : Benign prostate hypertrophy HEENT: None Psych: None Musculoskeletal: Chronic back pain Derm: Other - Past Surgical History Past Surgical History: Yes General: Colonoscopy Ortho: Rotator cuff repair, Spine surgery, Amputation Cardiovascular: CABG - Present Medications Home Medications: Ambulatory Orders Medication Instructions Recorded Confirmed Aspirin [Aspir 81] 81 mg PO DAILY 03/13/14 10/02/21 Cyclobenzaprine [Flexeril] 10 mg PO TID PRN #20 tablet 03/13/14 10/02/21 Metformin HCl 1,000 mg PO BID 03/13/14 10/02/21 Atorvastatin Calcium [Lipitor] 80 mg PO DAILY 12/09/20 10/02/21 Empagliflozin [Jardiance] 10 mg PO DAILY 12/09/20 10/02/21 Metoprolol Tartrate [Lopressor] 12.5 mg PO BID 12/09/20 10/02/21 DULoxetine [Cymbalta] 30 mg PO BID 12/10/20 10/02/21 Insulin Degludec [Tresiba 55 unit SQ DAILY 12/10/20 10/02/21 Flextouch U-200] Liraglutide [Victoza 2-Jaime] 1.8 mg SQ .QWEEK 12/10/20 10/02/21 Ondansetron Odt [Zofran] 4 mg TL Q6H PRN #10 tablet 10/31/21 - Allergies Allergies/Adverse Reactions: Allergies Allergy/AdvReac Type Severity Reaction Status Date / Time No Known Drug Allergies Allergy Verified 10/31/21 14:25 - Social History Does the pt smoke?: No Smoking Status: Never smoker Does the pt drink ETOH?: No Does the pt have substance abuse?: Yes - Immunizations Immunizations are current?: Yes PD ED PE NORMAL - Vitals Vital signs reviewed: Yes - General General: Alert and oriented X 3, No acute distress - HEENT HEENT: PERRL, EOMI - Neck Neck: Supple, no meningeal sign, No bony TTP - Cardiac Cardiac: RRR, No murmur - Respiratory Respiratory: Clear bilaterally, Other (Slight tachypnea with clear lungs) - Abdomen Abdomen: Soft, Non tender - Back Back: No CVA TTP, No spinal TTP - Derm Derm: Normal color, Warm and dry - Extremities Extremities: No edema, No calf tenderness / cord - Neuro Neuro: Alert and oriented X 3, Normal speech Results - Vitals Vitals: Vital Signs - 24 hr 10/31/21 10/31/21 14:21 17:28 Temperature 36.4 C L 37.0 C Heart Rate 66 68 Respiratory 22 19 Rate Blood Pressure 144/95 H 118/70 O2 Saturation 97 99 Oxygen O2 Source Room air - Labs Labs: Laboratory Tests 10/31/21 10/31/21 10/31/21 14:49 14:49 14:49 WBC 21.9 H RBC 6.00 Hgb 17.7 Hct 51.6 MCV 86.0 MCH 29.5 MCHC 34.3 RDW 13.6 Plt Count 258 MPV 9.9 Neut # (Auto) 17.7 H Lymph # (Auto) 2.1 [place] # (Auto) 1.9 H Eos # (Auto) 0.0 Baso # (Auto) 0.1 Absolute Nucleated RBC 0.00 Nucleated RBC % 0.0 Manual Slide Review Indicated WBC Morphology 1+ REACTIVE LYMPHS Platelet Estimate NORMAL (130-450,000) Platelet Morphology NORMAL APPEARANCE RBC Morph Micro Appear NORMAL APPEARANCE VBG pH 7.457 H VBG pCO2 33.1 L VBG pO2 20.1 L VBG HCO3 22.9 L VBG Total CO2 23.9 L VBG O2 Saturation 40.1 L VBG Base Excess 0.0 Sodium 133 L Potassium 4.0 Chloride 91 L Carbon Dioxide 22 Anion Gap 20.0 H BUN 27 H Creatinine 1.1 Estimated GFR (MDRD) 67 L Glucose 269 H Calcium 9.9 Magnesium 1.6 L Total Bilirubin 1.5 H AST 26 ALT 32 Alkaline Phosphatase 88 Total Protein 7.8 Albumin 4.3 Globulin 3.5 Albumin/Globulin Ratio 1.2 Serum Ketones SMALL H PD MEDICAL DECISION MAKING - ED course ED course: 65-year-old gentleman with diabetes presents with vomiting. He has small ketones but bicarb is normal and he is not acidemic. He was given 2 L of IV fluids and Zofran feeling much better and passed p.o. challenge. Departure - Departure Disposition: Home, Self Care Clinical Impression: Vomiting Qualifiers: Vomiting type: unspecified Nausea presence: with nausea Qualified Code(s): R11.2 - Nausea with vomiting, unspecified Diabetes type 2, uncontrolled Qualifiers: Glycemic state: with hyperglycemia Qualified Code(s): E11.65 - Type 2 diabetes mellitus with hyperglycemia Condition: Good Record reviewed to determine appropriate education?: Yes Instructions: ED Nausea Vomiting Prescriptions: Ondansetron Odt [Zofran] 4 mg TL Q6H PRN #10 tablet PRN Reason: Nausea / Vomiting Comments: I sent your prescription to [facility] in [place]. We did note that she have an elevated white count today. This might just be from the stress of the vomiting but do follow-up with your doctor tomorrow Thursday for recheck. Return if you worsen
[2021-10-31 17:29] VITALS: BP 118/70
== END 2021-10-31 18:05 | disposition home or self-care (01) ==
LOC: ED 14:17
DX: R11.2 Nausea with vomiting, unspecified (principal); E11.65 Type 2 diabetes mellitus with hyperglycemia; Z79.4 Long term (current) use of insulin; I10 Essential (primary) hypertension; Z95.1 Presence of aortocoronary bypass graft
CPT/HCPCS: 36415; 80053; 82009; 82803; 83735; 85025; 96361; 96374; 99282; 99284; J7120

== ENCOUNTER 2021-11-27 11:31 | Emergency (ER) | payer MEDICARE, OTHER ==
--- NOTE | 2021-11-27 12:17 | ED Physician Documentation ---
PD HPI WOUND RECHECK - Stated complaint Stated Complaint: LEFT FOOT PX & HOT - Chief complaint Chief Complaint: Wound - Histroy obtained from History obtained from: Patient - Additional information Additional information: 66-year-old gentleman with type 2 diabetes presents for evaluation of worsening left foot wound. He had been in wound care for it. Last culture a little over a month ago grew MSSA and Neisseria Alvarez I. He missed a few appointments of wound care due to a in the family and having to go to [facility]. Now worsening smell from the wound. He denies fevers or chills. He has no pain but he has significant diabetic neuropathy. Review of Systems Ten Systems: 10 systems reviewed and negative Constitutional: denies: Fever, Chills Cardiac: reports: Reviewed and negative Respiratory: reports: Reviewed and negative PD PAST MEDICAL HISTORY - Past Medical History Past Medical History: Yes Cardiovascular: Hypertension, High cholesterol, Coronary artery disease Respiratory: Sleep apnea Neuro: Peripheral neuropathy Endocrine/Autoimmune: Type 2 diabetes GI: GERD, Other : Benign prostate hypertrophy HEENT: None Psych: None Musculoskeletal: Chronic back pain Derm: Other - Past Surgical History Past Surgical History: Yes General: Colonoscopy Ortho: Rotator cuff repair, Spine surgery, Amputation Cardiovascular: CABG - Present Medications Home Medications: Ambulatory Orders Medication Instructions Recorded Confirmed Aspirin [Aspir 81] 81 mg PO DAILY 03/13/14 10/02/21 Cyclobenzaprine [Flexeril] 10 mg PO TID PRN #20 tablet 03/13/14 10/02/21 Metformin HCl 1,000 mg PO BID 03/13/14 10/02/21 Atorvastatin Calcium [Lipitor] 80 mg PO DAILY 12/09/20 10/02/21 Empagliflozin [Jardiance] 10 mg PO DAILY 12/09/20 10/02/21 Metoprolol Tartrate [Lopressor] 12.5 mg PO BID 12/09/20 10/02/21 DULoxetine [Cymbalta] 30 mg PO BID 12/10/20 10/02/21 Insulin Degludec [Tresiba 55 unit SQ DAILY 12/10/20 10/02/21 Flextouch U-200] Liraglutide [Victoza 2-Jaime] 1.8 mg SQ .QWEEK 12/10/20 10/02/21 Ondansetron Odt [Zofran] 4 mg TL Q6H PRN #10 tablet 10/31/21 cephALEXin [Keflex] 500 mg PO Q6H #40 cap 11/27/21 - Allergies Allergies/Adverse Reactions: Allergies Allergy/AdvReac Type Severity Reaction Status Date / Time No Known Drug Allergies Allergy Verified 11/27/21 11:48 - Social History Does the pt smoke?: No Smoking Status: Never smoker Does the pt drink ETOH?: No Does the pt have substance abuse?: Yes - Immunizations Immunizations are current?: Yes - POLST Patient has POLST: No PD ED PE NORMAL - Vitals Vital signs reviewed: Yes - General General: Alert and oriented X 3, No acute distress - Extremities Extremities: Other (Deep purulent ulcer probably tracking to bone near the distal third metatarsal on the plantar surface of the left foot with significant foul-smelling drainage.) - Neuro Neuro: Alert and oriented X 3, Normal speech Results - Vitals Vitals: Vital Signs - 24 hr 11/27/21 11/27/21 11:44 11:48 Temperature 36.4 C L 36.5 C Heart Rate 87 87 Respiratory 16 16 Rate Blood Pressure 150/86 H 150/86 H O2 Saturation 99 99 Oxygen O2 Source Room air - Labs Labs: Laboratory Tests 11/27/21 11/27/21 11/27/21 12:30 12:30 12:30 WBC 10.5 RBC 5.32 Hgb 15.5 Hct 47.0 MCV 88.3 MCH 29.1 MCHC 33.0 RDW 13.5 Plt Count 236 MPV 9.3 Neut # (Auto) 7.2 H Lymph # (Auto) 2.3 [place] # (Auto) 0.8 Eos # (Auto) 0.2 Baso # (Auto) 0.1 Absolute Nucleated RBC 0.00 Nucleated RBC % 0.0 ESR 22 H Sodium 137 Potassium 4.8 Chloride 100 L Carbon Dioxide 25 Anion Gap 12.0 BUN 25 H Creatinine 0.8 Estimated GFR (MDRD) 97 Glucose 230 H Calcium 9.2 C-Reactive Protein 1.0 - Rads (name of study) l Foot XR Radiology: EMP read contemporaneously (Findings consistent with probable small area of osteomyelitis of the third proximal phalanx) PD MEDICAL DECISION MAKING - ED course ED course: 66-year-old gentleman with a longstanding foot ulcer now with likely mild osteomyelitis. White count not elevated and CRP normal with modestly elevated sed rate. Wound care nurse practitioner came over and debrided it and packed it and will see him on Thursday. Departure - Departure Disposition: Home, Self Care Clinical Impression: Osteomyelitis of toe of left foot, Type 2 diabetes mellitus Condition: Good Record reviewed to determine appropriate education?: Yes Prescriptions: cephALEXin [Keflex] 500 mg PO Q6H #40 cap Comments: Wound care Nurse practitioner wants to see you on Thursday, make sure you go to and keep that appointment. Return for new or worsening symptoms. I sent the prescription electronically to [email or web address] in [place].
[2021-11-27] MEDS: ceFAZolin 1 GM VIAL IM STA (12:24)
[2021-11-27 12:35] LABS: BASOPHILS # (AUTO) 0.1 10^3/uL (0.0-0.1); BASOPHILS % (AUTO) 0.8 %; EOSINOPHILS # (AUTO) 0.2 10^3/uL (0.0-0.7); EOSINOPHILS % (AUTO) 1.6 %; HGB - HEMOGLOBIN 15.5 g/dL (14.0-18.0); LYMPHOCYTES # (AUTO) 2.3 10^3/uL (1.5-3.5); LYMPHOCYTES % (AUTO) 21.5 %; MEAN CORPUSCULAR HEMOGLOBIN 29.1 pg (27.0-31.0); MEAN CORPUSCULAR VOLUME 88.3 fL (80.0-94.0); MEAN PLATELET VOLUME 9.3 fL (7.4-11.4); MONOCYTES # (AUTO) 0.8 10^3/uL (0.0-1.0); MONOCYTES % (AUTO) 7.4 %; NEUTROPHILS # (AUTO) 7.2 10^3/uL (1.5-6.6); NEUTROPHILS % (AUTO) 68.3 %; PLT - PLATELET COUNT 236 10^3/uL (130-450); RED BLOOD COUNT 5.32 10^6/uL (4.70-6.10); RED CELL DISTRIBUTION WIDTH 13.5 % (12.0-15.0); WHITE BLOOD COUNT 10.5 x10^3/uL (4.8-10.8)
[2021-11-27 12:52] LABS: CALCIUM 9.2 mg/dL (8.5-10.3); CREATININE 0.8 mg/dL (0.6-1.2); POTASSIUM 4.8 mmol/L (3.5-5.0)
--- NOTE | 2021-11-27 12:53 | XRAY Report ---
PROCEDURE: Foot 3 View LT INDICATIONS: foot infection TECHNIQUE: 3 views of the foot were acquired. COMPARISON: None. FINDINGS: BONES: Cortical irregularity of the third proximal phalanx base, concerning for osteomyelitis. Mild o steophytosis about the first interphalangeal and metatarsophalangeal joints. Calcaneal enthesophytes are seen. SOFT TISSUES: Focus of subcutaneous gas in the plantar aspect, overlying the third MTP. IMPRESSION: 1.Cortical irregularity of the third proximal phalanx base, concerning for osteomyelitis. Reviewed by: Almas Ace MD on 11/27/2021 12:52 PM PDT Approved by: Almas Ace MD on 11/27/2021 12:52 PM PDT Station ID: [id number]
[2021-11-27 13:07] VITALS: BP 140/80
--- NOTE | 2021-11-27 16:06 | WOUND CARE PROGRESS NOTE ---
Assessment/Plan - Problem List (1) Diabetic foot ulcer Qualifiers: Diabetic foot ulcer location: unspecified part of foot Non-pressure ulcer stage: with fat layer exposed Assessment/Plan: Chronic. Present x nearly one year. Patient has been being followed by wound care since March 2021, however, he has not been seen since 09/2021 due to unforeseen circumstances. Wound worsening with increase drainage, odor and increasing in size. Podiatry sent patient to the ED today. Dr. Shah informed me of patient's wound presentation. The patient was evaluated and treated in ED room 12. Plan of care: Wound hygiene with sharp debridement of non-viable tissue and antimicrobial solution. Dressing with AMD packing, 2x2 gauze, and secured with a tegaderm. Patient encouraged to keep dressing dry and intact. He has a wound care appointment scheduled on 11/29/2021 at 0930. He has followed up with [facility] and is due to get new custom made inserts in one week for offloading which is vital to healing. X-ray done to day in the ED suggestive of osteomyelitis. Patient was started on Keflex 500mg po qid by Dr. Shah. Consider ortho evaluation. - Results Lab Results: Laboratory Results Sodium 137 mmol/L (135-145) 11/27/21 12:30 Potassium 4.8 mmol/L (3.5-5.0) 11/27/21 12:30 Chloride 100 mmol/L (101-111) L 11/27/21 12:30 Carbon Dioxide 25 mmol/L (21-32) 11/27/21 12:30 Anion Gap 12.0 (6-13) 11/27/21 12:30 BUN 25 mg/dL (6-20) H 11/27/21 12:30 Creatinine 0.8 mg/dL (0.6-1.2) 11/27/21 12:30 Glucose 230 mg/dL (70-100) H 11/27/21 12:30 Calcium 9.2 mg/dL (8.5-10.3) 11/27/21 12:30 - Home Meds/Allergies Allergies No Known Drug Allergies Allergy (Verified 11/27/21 11:48) - Additional Planning Condition/Complexity: Stable Plan Discussed with:: Patient Objective General: Alert, Oriented x3, Cooperative, No acute distress - Wound Assessment Initial visit 03/19/21 wound #1 measurements: 1.6 x 1.5 x 0.3 with undermining from 4-6 o'clock of 0.3cm Wound #1 Left plantar 3rd MT head: The wound is located on patients Left plantar region, 3rd MT head. The wound is full thickness. The wound base is 100% dark loosely adhered necrotic tissue. M oderate drainage. Foul odor. Periwound with raised macerated callus. Mild erythema. Undermining 4-6 o'clock measuring 1.0 cm. Pedal pulses palpable. Cap refill WNL. History: On 03/19/21 ALVIN done manually on Left: 1.47 DP/PT audible via doppler and triphasic. Subjective - Subjective Patient Reports: Other (Patient has missed several wound care appointments due to a in the family. Chronic wound becoming larger with increased drainage and foul odor. Patient was seen at the [facility] helper today who encouarged him to go to the ER. Denies fevers, chills, n/v.) Procedure - Procedure Note Wound #1: left plantar foot: Pre:2.0 x 2.0 x 1.0 Post: 2.1 x 2.1 x 1.2 Total debrided: 4.41 sq cm After informed consent, the wound and periwound were cleansed, then 5% topical lidocaine was applied for local anesthesia. Using a #15 blade and forceps, the wound was sharply debrided of non-viable and subcutaneous tissue, including callused wound edges. 100% of wound bed debrided. Skin edges were freshened in a similar fashion. Hemostasis was achieved with pressure and time. A new dressing consisting of AMD with antimicrobial properties was applied. Patient tolerated the procedure well without apparent complications. Appropriate follow up instructions were given. Meds/Allgy - Home Medications Home Medications: Ambulatory Orders Medication Instructions Recorded Confirmed Aspirin [Aspir 81] 81 mg PO DAILY 03/13/14 10/02/21 Cyclobenzaprine [Flexeril] 10 mg PO TID PRN #20 tablet 03/13/14 10/02/21 Metformin HCl 1,000 mg PO BID 03/13/14 10/02/21 Atorvastatin Calcium [Lipitor] 80 mg PO DAILY 12/09/20 10/02/21 Empagliflozin [Jardiance] 10 mg PO DAILY 12/09/20 10/02/21 Metoprolol Tartrate [Lopressor] 12.5 mg PO BID 12/09/20 10/02/21 DULoxetine [Cymbalta] 30 mg PO BID 12/10/20 10/02/21 Insulin Degludec [Tresiba 55 unit SQ DAILY 12/10/20 10/02/21 Flextouch U-200] Liraglutide [Victoza 2-Jaime] 1.8 mg SQ .QWEEK 12/10/20 10/02/21 Ondansetron Odt [Zofran] 4 mg TL Q6H PRN #10 tablet 10/31/21 cephALEXin [Keflex] 500 mg PO Q6H #40 cap 11/27/21 - Allergies Allergies/Adverse Reactions: Allergies Allergy/AdvReac Type Severity Reaction Status Date / Time No Known Drug Allergies Allergy Verified 11/27/21 11:48
== END 2021-11-27 13:05 | disposition home or self-care (01) ==
LOC: ED 11:31
DX: I96 Gangrene, not elsewhere classified (principal); E11.621 Type 2 diabetes mellitus with foot ulcer; I10 Essential (primary) hypertension; Z95.1 Presence of aortocoronary bypass graft; M86.9 Osteomyelitis, unspecified
CPT/HCPCS: 11042; 36415; 80048; 85025; 85651; 86140; 96372; 99283; 99284

== ENCOUNTER 2021-12-11 13:26 | Emergency (ER) | payer MEDICARE, OTHER ==
[2021-12-11] MEDS ORDERED: DROPERIDOL 5 MG/2 ML VIAL IVP STA (14:15)
[2021-12-11] MEDS ORDERED: SODIUM CHLORIDE 0.9% 1,000 ML IV STA (14:15)
[2021-12-11 14:22] LABS: BASOPHILS # (AUTO) 0.1 10^3/uL (0.0-0.1); BASOPHILS % (AUTO) 0.5 %; EOSINOPHILS % (AUTO) 0.1 %; HCT - HEMATOCRIT 52.1 % (42.0-52.0); HGB - HEMOGLOBIN 17.7 g/dL (14.0-18.0); LYMPHOCYTES # (AUTO) 1.5 10^3/uL (1.5-3.5); MEAN CORPUSCULAR HEMOGLOBIN 28.5 pg (27.0-31.0); MEAN PLATELET VOLUME 9.7 fL (7.4-11.4); MONOCYTES # (AUTO) 0.4 10^3/uL (0.0-1.0); MONOCYTES % (AUTO) 2.2 %; NEUTROPHILS # (AUTO) 14.6 10^3/uL (1.5-6.6); NEUTROPHILS % (AUTO) 87.8 %; PLT - PLATELET COUNT 329 10^3/uL (130-450); RED CELL DISTRIBUTION WIDTH 13.4 % (12.0-15.0); WHITE BLOOD COUNT 16.6 x10^3/uL (4.8-10.8)
[2021-12-11 14:31] LABS: ALBUMIN 4.5 g/dL (3.2-5.5); BILIRUBIN,TOTAL 0.8 mg/dL (0.2-1.0); CALCIUM 10.2 mg/dL (8.5-10.3); CREATININE 0.9 mg/dL (0.6-1.2); POTASSIUM 3.9 mmol/L (3.5-5.0)
--- NOTE | 2021-12-11 14:33 | ED Physician Documentation ---
History of Present Illness - Stated complaint Stated Complaint: N/V - Chief complaint Chief Complaint: Abd Pain - History obtained from History obtained from: Patient - Additonal information Additional information: Patient with a history of diabetic gastroparesis comes emergency department with chief complaint of upper abdominal pain, nausea, and vomiting. He states it feels exactly the same as his previous though it is of vomiting due to gastroparesis. Patient denies any new symptoms. No fever chills, dysuria, stool changes, or respiratory symptoms. He states his sugar this morning was 190. No recent illnesses of any other kind. Patient states he was feeling fine yesterday and that his symptoms started early this morning, approximately 8 hours ago. No other complaints at this time. Review of Systems Ten Systems: 10 systems reviewed and negative Constitutional: reports: Reviewed and negative Eyes: reports: Reviewed and negative Ears: reports: Reviewed and negative Nose: reports: Reviewed and negative Throat: reports: Reviewed and negative Cardiac: reports: Reviewed and negative Respiratory: reports: Reviewed and negative GI: reports: Abdominal Pain, Nausea, Vomiting : reports: Reviewed and negative Skin: reports: Reviewed and negative Musculoskeletal: reports: Reviewed and negative Neurologic: reports: Reviewed and negative Psychiatric: reports: Reviewed and negative Endocrine: reports: Reviewed and negative Immunocompromised: reports: Reviewed and negative PD PAST MEDICAL HISTORY - Past Medical History Cardiovascular: Hypertension, High cholesterol, Coronary artery disease Respiratory: Sleep apnea Neuro: Peripheral neuropathy Endocrine/Autoimmune: Type 2 diabetes GI: GERD, Other : Benign prostate hypertrophy HEENT: None Psych: None Musculoskeletal: Chronic back pain Derm: Other - Past Surgical History Past Surgical History: Yes General: Colonoscopy Ortho: Rotator cuff repair, Spine surgery, Amputation Cardiovascular: CABG - Present Medications Home Medications: Ambulatory Orders Medication Instructions Recorded Confirmed Aspirin [Aspir 81] 81 mg PO DAILY 03/13/14 12/11/21 Metformin HCl 1,000 mg PO BID 03/13/14 12/11/21 Atorvastatin Calcium [Lipitor] 80 mg PO DAILY 12/09/20 12/11/21 Empagliflozin [Jardiance] 10 mg PO DAILY 12/09/20 12/11/21 Metoprolol Tartrate [Lopressor] 12.5 mg PO BID 12/09/20 12/11/21 DULoxetine [Cymbalta] 30 mg PO BID 12/10/20 12/11/21 Insulin Degludec [Tresiba 55 unit SQ DAILY 12/10/20 12/11/21 Flextouch U-200] Liraglutide [Victoza 2-Jaime] 1.8 mg SQ .QWEEK 12/10/20 12/11/21 Ondansetron Odt [Zofran] 4 mg TL Q6H PRN #10 tablet 12/11/21 Prochlorperazine Supp [Compazine 25 mg FL BID PRN #10 supp 12/11/21 Supp] - Allergies Allergies/Adverse Reactions: Allergies Allergy/AdvReac Type Severity Reaction Status Date / Time No Known Drug Allergies Allergy Verified 12/11/21 13:42 - Social History Does the pt smoke?: No Smoking Status: Never smoker Does the pt drink ETOH?: No Does the pt have substance abuse?: Yes - Immunizations Immunizations are current?: Yes - POLST Patient has POLST: No PD ED PE NORMAL - Vitals Vital signs reviewed: Yes - General General: Alert and oriented X 3, No acute distress, Well developed/nourished - HEENT HEENT: Atraumatic, PERRL, EOMI, Moist mucous membranes - Neck Neck: Supple, no meningeal sign - Cardiac Cardiac: RRR, No murmur, Strong equal pulses - Respiratory Respiratory: No respiratory distress, Clear bilaterally - Abdomen Abdomen: Soft, Non distended, Other - Derm Derm: Normal color, Warm and dry, No rash - Extremities Extremities: No deformity, No edema - Neuro Neuro: Alert and oriented X 3, 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, Normal speech - Psych Psych: Normal mood, Normal affect Results - Vitals Vitals: Vital Signs - 24 hr 12/11/21 12/11/21 13:37 15:46 Temperature 36.4 C L Heart Rate 141 H 107 H Respiratory 20 18 Rate Blood Pressure 174/107 H 142/73 H O2 Saturation 100 98 Oxygen O2 Source Room air - Labs Labs: Laboratory Tests 12/11/21 12/11/21 12/11/21 13:53 13:53 14:03 WBC 16.6 H RBC 6.20 H Hgb 17.7 Hct 52.1 H MCV 84.0 MCH 28.5 MCHC 34.0 RDW 13.4 Plt Count 329 MPV 9.7 Neut # (Auto) 14.6 H Lymph # (Auto) 1.5 [place] # (Auto) 0.4 Eos # (Auto) 0.0 Baso # (Auto) 0.1 Absolute Nucleated RBC 0.00 Nucleated RBC % 0.0 Sodium 141 Potassium 3.9 Chloride 99 L Carbon Dioxide 21 Anion Gap 21.0 H BUN 19 Creatinine 0.9 Estimated GFR (MDRD) 84 L Glucose 206 H POC Whole Bld Glucose 199 H Calcium 10.2 Total Bilirubin 0.8 AST 24 ALT 26 Alkaline Phosphatase 140 H Total Protein 9.0 H Albumin 4.5 Globulin 4.5 H Albumin/Globulin Ratio 1.0 Lipase 131 H PD MEDICAL DECISION MAKING - ED course Complexity details: reviewed results, re-evaluated patient, considered differential, d/w patient ED course: The patient was given a liter of 0.9 normal saline, as well as droperidol IV. He was also worked up with laboratory studies. Patient had a number of minor lab abnormalities, but nothing significant concern at this time. His sugar was around 200. He was feeling much better after fluids and droperidol and was deemed stable for discharge home. We have discussed the usual indications for return and follow-up Departure - Departure Disposition: 01 Home, Self Care Clinical Impression: Diabetic gastroparesis Vomiting Qualifiers: Vomiting type: bilious vomiting Nausea presence: with nausea Qualified Code(s): R11.14 - Bilious vomiting Condition: Stable Instructions: ED Nausea Vomiting Prescriptions: Prochlorperazine Supp [Compazine Supp] 25 mg [place] BID PRN #10 supp PRN Reason: Nausea / Vomiting Ondansetron Odt [Zofran] 4 mg TL Q6H PRN #10 tablet PRN Reason: Nausea / Vomiting Comments: You have some mild lab abnormalities which are most likely related to your exacerbation of gastroparesis. Given that your symptoms are consistent with your many previous attacks, we will continue symptomatic treatment for this. If you find you cannot hold your medications down, or if you develop fevers, more severe abdominal pain than usual or any other concerning and unusual symptoms, please return to the emergency department. Otherwise, please follow-up with your primary care physician. Discharge Date/Time: 12/11/21 15:47
[2021-12-11 15:47] VITALS: BP 142/73
== END 2021-12-11 15:47 | disposition home or self-care (01) ==
LOC: ED 13:26
DX: E11.43 Type 2 diabetes mellitus with diabetic autonomic (poly)neuropathy (principal); K31.84 Gastroparesis; Z79.4 Long term (current) use of insulin; I10 Essential (primary) hypertension; Z95.1 Presence of aortocoronary bypass graft
CPT/HCPCS: 36415; 80053; 83690; 85025; 96374; 99283

== ENCOUNTER 2022-09-16 14:31 | Emergency (ER) | payer MEDICARE, OTHER ==
[2022-09-16] MEDS ORDERED: DROPERIDOL 5 MG/2 ML VIAL IVP STA (14:58)
[2022-09-16] MEDS ORDERED: SODIUM CHLORIDE 0.9% 1,000 ML IV STA ×2 (14:58→15:57)
[2022-09-16] MEDS ORDERED: ONDANSETRON 4 MG/2 ML VIAL IVP STA (14:59)
--- NOTE | 2022-09-16 15:03 | ED Physician Documentation ---
History of Present Illness - Stated complaint Stated Complaint: VOMITING - Chief complaint Chief Complaint: Abd Pain - Additonal information Additional information: 66-year-old male who has a history of diabetes presents to the emergency depa rtment for evaluation of uncontrolled nausea and vomiting that began this morning. Last bowel movement this morning. No fevers. No hematic emesis. He does have a history of gastroparesis. He admits that he has not taken his insulin now for 3 days but he is taking his oral medications. He also is a daily cannabis user. In the room he is actively dry heaving. Patient is historian. Fair historian given discomfort Insulin: Tresiba 55 q daily; Victoza 1.8 mg Q week Review of Systems Constitutional: denies: Fever, Chills Cardiac: reports: Reviewed and negative Respiratory: reports: Reviewed and negative GI: reports: Abdominal Pain, Nausea, Vomiting. denies: Diarrhea, Hematemesis, Bloody / black stool : reports: Reviewed and negative Skin: reports: Reviewed and negative PD PAST MEDICAL HISTORY - Past Medical History Past Medical History: Yes Cardiovascular: Hypertension, High cholesterol, Coronary artery disease Respiratory: Sleep apnea Neuro: Peripheral neuropathy Endocrine/Autoimmune: Type 2 diabetes GI: GERD, Other : Benign prostate hypertrophy HEENT: None Psych: None Musculoskeletal: Chronic back pain Derm: Other - Past Surgical History Past Surgical History: Yes General: Colonoscopy Ortho: Rotator cuff repair, Spine surgery, Amputation Cardiovascular: CABG - Present Medications Home Medications: Ambulatory Orders Medication Instructions Recorded Confirmed Aspirin [Aspir 81] 81 mg PO DAILY 03/13/14 12/11/21 Metformin HCl 1,000 mg PO BID 03/13/14 12/11/21 Atorvastatin Calcium [Lipitor] 80 mg PO DAILY 12/09/20 09/16/22 Empagliflozin [Jardiance] 10 mg PO DAILY 12/09/20 12/11/21 Metoprolol Tartrate [Lopressor] 12.5 mg PO BID 12/09/20 09/16/22 DULoxetine [Cymbalta] 30 mg PO BID 12/10/20 12/11/21 Insulin Degludec [Tresiba 55 unit SQ DAILY 12/10/20 09/16/22 Flextouch U-200] Liraglutide [Victoza 2-Jaime] 1.8 mg SQ .QWEEK 12/10/20 09/16/22 Ondansetron Odt [Zofran] 4 mg TL Q6H PRN #10 tablet 12/11/21 Prochlorperazine Supp [Compazine 25 mg [place] BID PRN #10 supp 12/11/21 Supp] cephALEXin [Keflex] 500 mg PO BID 14 Days #28 cap 12/17/21 - Allergies Allergies/Adverse Reactions: Allergies Allergy/AdvReac Type Severity Reaction Status Date / Time No Known Drug Allergies Allergy Verified 09/16/22 14:41 - Social History Does the pt smoke?: No Smoking Status: Never smoker Does the pt drink ETOH?: No Does the pt have substance abuse?: Yes - Immunizations Immunizations are current?: Yes - POLST Patient has POLST: No PD ED PE NORMAL - General General: Alert and oriented X 3, No acute distress, Well developed/nourished - HEENT HEENT: Atraumatic, Moist mucous membranes - Neck Neck: Supple, no meningeal sign, No adenopathy - Cardiac Cardiac: RRR, No murmur - Respiratory Respiratory: No respiratory distress, Clear bilaterally - Back Back: No CVA TTP, No spinal TTP - Derm Derm: Normal color, Warm and dry, No rash - Extremities Extremities: No deformity, No tenderness to palpate, Normal ROM s pain - Neuro Neuro: Alert and oriented X 3, 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 Eye Opening: Spontaneous Motor: Obeys Commands Verbal: Oriented GCS Score: 15 Results - Vitals Vitals: Vital Signs - 24 hr 09/16/22 09/16/22 09/16/22 14:41 14:47 16:47 Temperature 36.6 C 36.6 C Heart Rate 109 H 109 H 140 H Respiratory 20 20 22 Rate Blood Pressure 178/119 H 178/119 H 137/77 H O2 Saturation 100 100 98 09/16/22 09/16/22 17:21 17:55 Temperature Heart Rate 144 H 95 Respiratory 20 16 Rate Blood Pressure 122/83 H 135/79 H O2 Saturation 98 97 Oxygen O2 Source Room air - EKG (time done) 1706 Rate: Rate (enter#) (144) Rhythm: Atrial fibrillation Intervals: Prolonged QT Ischemia: Q waves (II, III, AVf (unchanged)) Compare to prior EKG: Changed from prior EKG (now atrial fibrillation) 1746 Rate: Rate (enter#) (98) Rhythm: NSR [place]: Normal Intervals: Normal [place]. No: Prolonged QT QRS: Normal Compare to prior EKG: No: Unchanged from prior EKG (Has now converted to sinus r hythm. Nonischemic) Computer interpretation: Agree with computer - Labs Labs: Laboratory Tests 09/16/22 09/16/22 09/16/22 14:46 15:05 15:05 WBC 15.2 H RBC 6.40 H Hgb 16.6 Hct 50.7 MCV 79.2 L MCH 25.9 L MCHC 32.7 RDW 16.2 H Plt Count 275 MPV 10.6 Neut # (Auto) 13.2 H Lymph # (Auto) 1.3 L Winston # (Auto) 0.4 Eos # (Auto) 0.0 Baso # (Auto) 0.1 Absolute Nucleated RBC 0.00 Nucleated RBC % 0.0 VBG pH VBG pCO2 VBG pO2 VBG HCO3 VBG Total CO2 VBG O2 Saturation VBG Base Excess Sodium 139 Potassium 4.2 Chloride 96 L Carbon Dioxide 17 L Anion Gap 26.0 H BUN 22 H Creatinine 1.0 Estimated GFR (MDRD) 75 L Glucose 397 H POC Whole Bld Glucose 421 H Lactic Acid Calcium 10.7 H Total Bilirubin 1.1 H AST 24 ALT 35 Alkaline Phosphatase 130 H Total Protein 9.1 H Albumin 4.5 Globulin 4.6 H Albumin/Globulin Ratio 1.0 Lipase 37 Serum Ketones SMALL H 09/16/22 09/16/22 09/16/22 16:07 16:07 16:40 WBC RBC Hgb Hct MCV MCH MCHC RDW Plt Count MPV Neut # (Auto) Lymph # (Auto) Winston # (Auto) Eos # (Auto) Baso # (Auto) Absolute Nucleated RBC Nucleated RBC % VBG pH 7.329 VBG pCO2 37.0 L VBG pO2 51.3 H VBG HCO3 19.0 L VBG Total CO2 20.2 L VBG O2 Saturation 85.8 H VBG Base Excess -6.1 L Sodium Potassium Chloride Carbon Dioxide Anion Gap BUN Creatinine Estimated GFR (MDRD) Glucose POC Whole Bld Glucose 316 H Lactic Acid 2.1 Calcium Total Bilirubin AST ALT Alkaline Phosphatase Total Protein Albumin Globulin Albumin/Globulin Ratio Lipase Serum Ketones 09/16/22 09/16/22 17:27 17:59 WBC RBC Hgb Hct MCV MCH MCHC RDW Plt Count MPV Neut # (Auto) Lymph # (Auto) Winston # (Auto) Eos # (Auto) Baso # (Auto) Absolute Nucleated RBC Nucleated RBC % VBG pH VBG pCO2 VBG pO2 VBG HCO3 VBG Total CO2 VBG O2 Saturation VBG Base Excess Sodium 141 Potassium 4.3 Chloride 103 Carbon Dioxide 19 L Anion Gap 19.0 H BUN 21 H Creatinine 0.9 Estimated GFR (MDRD) 84 L Glucose 248 H POC Whole Bld Glucose 232 H Lactic Acid Calcium 9.6 Total Bilirubin 0.9 AST 20 ALT 29 Alkaline Phosphatase 106 Total Protein 7.6 Albumin 3.8 Globulin 3.8 Albumin/Globulin Ratio 1.0 Lipase 41 Serum Ketones - Rads (name of study) cxr Radiology: Final report received (No acute cardiopulmonary process) ct abd Radiology: Final report received (No acute abdominal or pelvic abnormality) PD Medical Decision Making - ED course Complexity details: reviewed results, re-evaluated patient, considered differential, d/w patient, d/w family ED course: 66-year-old male presents to the emergency department for evaluation of uncontrolled nausea and vomiting that began this AM. He has vague abdominal pain. He does have a history of diabetes as well as daily cannabis use. He admits to me that he has not taken his insulin for the last 3 days. Typically he takes Tresiba 55 units daily as well as Victoza 1.8 mg every week. On presentation fingerstick glucose was 421. His CBC shows mild leukocytosis with a white count of 15. Electrolytes reveal anion gap 26 And small ketones in the urine. His blood gas however shows a pH of 7.32. Lactate was not elevated. Thus he is hyperglycemic though not in ketoacidosis. This patient also admits to smoking cannabis every day. I did consider gastroparesis versus cannabis hyperemesis as a cause for the vomiting but given the leukocytosis a CT of the abdomen was completed. Reassuringly no acute findings were found. In order to manage the nausea and vomiting initially he was medicated with Inapsine and Zofran as well as 2 L of IV fluids. On reevaluation the nausea and vomiting is better and he is tolerating sips of clear liquids. Because of the elevated anion gap and hyperglycemia initially I I also administered this gentleman 5 of insulin IV. A recheck of his sugar shows that the fingerstick blood glucose was 316. I then ordered 10 of insulin. I have ordered a repeat chemistry panel for around 1730. Hoping that the gap has closed and that the patient may be stable for discharge home. 1700: I was alerted by nursing staff that the patient's heart rate has suddenly increased to 140s. It is fixed appears to be atrial fibrillation on the monitor. EKG confirms this. Previous EKG showed a sinus rhythm. In evaluation of the patient he denies any chest pain or shortness of air. 10 mg of diltiazem will be ordered in order to slow his heart rate. 1730: Heart rate has slowed to about 110 now appears sinus on the monitor. Patient continues to deny chest pain or shortness of air. I am going to order an additional dose of diltiazem and reevaluate his EKG following. At this time patient has no vomiting or chest pain.Warren EKG now shows sinus rhythm without ischemic changes. I reevaluated the patient he is feeling markedly better. A repeat electrolyte panel shows a closing gap now down to 19. His CO2 is up to 1745: Warren EKG now shows sinus rhythm without ischemic changes. I reevaluated the patient he is feeling markedly better. A repeat electrolyte panel shows a closing gap now down to 19. His CO2 is up to 19 as well. Patient continues to remain in sinus rhythm. I discussed with the patient and his that the likely etiology of the nausea and vomiting was related to hyperglycemia in the absence of failure to take his insulin for 3 days. He was hyperglycemic though not in DKA given no acidosis. I also discussed the brief episode of atrial fibrillation here in the emergency department. It was easily controlled and converted to sinus rhythm with 1 dose of diltiazem though a second dose was given for further rate control. I am encouraging the patient to have close follow-up with Sheree Ngo his primary care provider. He should receive referral to cardiology. He likely would also benefit from a Holter monitor as I suspect that he goes in and out of atrial fibrillation though he seems to be asymptomatic for it. He does not meet the criteria for anticoagulation as he is currently in sinus rhythm. He is discharged home in stable condition. Both he and his are appreciative and comfortable with the care rendered here at [facility]. We discussed the usual emergent return precautions Departure - Departure Disposition: 01 Home, Self Care Clinical Impression: Noncompliance with medication regimen, Poorly controlled diabetes mellitus, Hyperglycemia, Metabolic acidosis, increased anion gap Nausea and vomiting Qualifiers: Vomiting type: unspecified Qualified Code(s): R11.2 - Nausea with vomiting, unspecified Atrial fibrillation Qualifiers: Atrial fibrillation type: paroxysmal Qualified Code(s): I48.0 - Paroxysmal atrial fibrillation Instructions: ED Afib Follow-Up: Betsy Ngo ARNP [Primary Care Provider] - Comments: You came to the emergency department today because you have had uncontrolled nausea and vomiting that began this morning. You admitted that you had not taken your insulin for 3 days. Initially on presentation your blood sugars were high but you had not fully gone into diabetes ketoacidosis. Here in the emergency department we did give you 2 L of IV fluid as well as 15 units of insulin and some antinausea medicine. On reevaluation your nausea has improved and you are tolerating sips of clear liquids. Your blood sugars have started to improve as well. You are now stable for discharge home. At home you can continue to take your usual routine medications. I do recommend that you take 15 units of your Tresiba tonight and eat a light meal. Tomorrow morning you can begin taking it as you otherwise would While here in the emergency department you did have a very brief episode of atrial fibrillation that lasted about 30 minutes. It resolved after you received 1 dose of diltiazem. A second dose was given simply to slow your heart rate. I suspect that you will often go in and out of atrial fibrillation. This is common in people to have diabetes as well as a history of CABGs. It is important that you follow closely with your primary care provider. You would benefit from referral to cardiology. He would also benefit from a Holter monitor to determine how often you are going into atrial fibrillation. While at home I would like you to monitor your heart rates once or twice daily at rest. If you have resting heart rates of 120, you feel chest pain or short of air you should return immediately to the emergency department.
[2022-09-16 15:41] LABS: BASOPHILS # (AUTO) 0.1 10^3/uL (0.0-0.1); BASOPHILS % (AUTO) 0.5 %; EOSINOPHILS % (AUTO) 0.1 %; HCT - HEMATOCRIT 50.7 % (42.0-52.0); HGB - HEMOGLOBIN 16.6 g/dL (14.0-18.0); LYMPHOCYTES # (AUTO) 1.3 10^3/uL (1.5-3.5); LYMPHOCYTES % (AUTO) 8.8 %; MEAN CORPUSCULAR HEMOGLOBIN 25.9 pg (27.0-31.0); MEAN CORPUSCULAR HGB CONC 32.7 g/dL (32.0-36.0); MEAN CORPUSCULAR VOLUME 79.2 fL (80.0-94.0); MEAN PLATELET VOLUME 10.6 fL (7.4-11.4); MONOCYTES # (AUTO) 0.4 10^3/uL (0.0-1.0); MONOCYTES % (AUTO) 2.4 %; NEUTROPHILS # (AUTO) 13.2 10^3/uL (1.5-6.6); NEUTROPHILS % (AUTO) 87.3 %; PLT - PLATELET COUNT 275 10^3/uL (130-450); RED CELL DISTRIBUTION WIDTH 16.2 % (12.0-15.0); WHITE BLOOD COUNT 15.2 x10^3/uL (4.8-10.8)
[2022-09-16 15:44] LABS: KETONES, SERUM (ACETEST) SMALL (NEGATIVE)
[2022-09-16 15:52] LABS: ALBUMIN 4.5 g/dL (3.2-5.5); ALKALINE PHOSPHATASE 130 IU/L (42-121); ALT ALANINE AMINOTRANSFERASE 35 IU/L (10-60); AST ASPARTATE AMINOTRANSFERASE 24 IU/L (10-42); BILIRUBIN,TOTAL 1.1 mg/dL (0.2-1.0); BUN - BLOOD UREA NITROGEN 22 mg/dL (6-20); CALCIUM 10.7 mg/dL (8.5-10.3); CARBON DIOXIDE - CO2 17 mmol/L (21-32); CHLORIDE 96 mmol/L (101-111); GFR - MDRD 75 (>89); GLUCOSE 397 mg/dL (70-100); LIPASE 37 U/L (22-51); POTASSIUM 4.2 mmol/L (3.5-5.0); SODIUM 139 mmol/L (135-145); TOTAL PROTEIN 9.1 g/dL (6.7-8.2)
[2022-09-16] MEDS ORDERED: INSULIN REGULAR HUMAN 100 UNIT/1 ML 10 ML MDV IVP STA ×2 (15:58→16:52)
[2022-09-16] MEDS ORDERED: iohexoL-300 100 ML VIAL ONE (16:12)
[2022-09-16 16:13] LABS: VBG PH 7.329 (7.31-7.41)
[2022-09-16 16:14] LABS: VBG BASE EXCESS -6.1 mmol/L (-2 - +2); VBG OXYGEN SATURATION 85.8 % (60-80); VBG PO2 51.3 mmHg (25-47); VBG TOTAL CO2 20.2 mmol/L (24-29)
[2022-09-16] MEDS ORDERED: iohexoL-300 100 ML VIAL IVP ONE (16:36)
--- NOTE | 2022-09-16 16:41 | XRAY Report ---
PROCEDURE: Chest 1 View X-Ray INDICATIONS: chest pain TECHNIQUE: One view of the chest was acquired. COMPARISON: 12/09/[address] FINDINGS: Surgical changes and devices: Median sternotomy changes. Lungs and pleura: No pleural effusions or pneumothorax. Lungs are clear. Mediastinum: Mediastinal contours appear normal. Heart size is normal. Bones and chest wall: No suspicious bony lesions. Overlying soft tissues appear unremarkable. IMPRESSION: No acute cardiopulmonary process demonstrated radiographically. Reviewed by: Donovan Pfeiffer MD on 09/16/2022 4:40 PM PST Approved by: Donovan Pfeiffer MD on 09/16/2022 4:40 PM [facility] Station ID: [id number]
--- NOTE | 2022-09-16 16:45 | CT Report ---
PROCEDURE: ABDOMEN/PELVIS W INDICATIONS: n/v/and pain CONTRAST: 100mL Omni 300 TECHNIQUE: After the administration of contrast, 5 mm thick sections acquired from the diaphragms to the sym physis. 5 mm thick coronal and sagittal reformats were acquired. For radiation dose reduction, the following was used: automated exposure control, adjustment of mA and/or kV according to patient size . COMPARISON: None. FINDINGS: Image quality: Excellent. ABDOMEN: Lung bases: Lung bases are clear. Heart size is normal. Solid organs: Liver and spleen are normal in size and enhancement. Gallbladder is normal. Biliary system is non dilated. Pancreas enhances normally. No adrenal nodules. Kidneys demonstrate normal size and enhancement, without hydronephrosis. The right kidney has nonobstructive calculi. Peritoneum and bowel: Bowel loops demonstrate normal wall thickness and caliber. No free fluid or a ir. Nodes and vessels: No retroperitoneal or mesenteric adenopathy by size criteria. Aorta and inferior vena cava are normal in size. Miscellaneous: No ventral hernias. PELVIS: Genitourinary: Bladder wall thickness is normal. Miscellaneous: No inguinal hernias or adenopathy. Bones: No suspicious bony lesions. No vertebral body compression fractures. IMPRESSION: No acute abdominal or pelvic abnormality. Reviewed by: Karsten Kim on 09/16/2022 4:44 PM PST Approved by: Karsten Kim on 09/16/2022 4:44 PM PST Station ID: [id number]
[2022-09-16] MEDS ORDERED: diltiaZEM INJ 5 MG/ML VIAL IVP STA ×2 (17:11→17:35)
[2022-09-16 17:50] LABS: ALBUMIN 3.8 g/dL (3.2-5.5); BILIRUBIN,TOTAL 0.9 mg/dL (0.2-1.0); CALCIUM 9.6 mg/dL (8.5-10.3); CREATININE 0.9 mg/dL (0.6-1.2); POTASSIUM 4.3 mmol/L (3.5-5.0); TOTAL PROTEIN 7.6 g/dL (6.7-8.2)
[2022-09-16 17:56] VITALS: BP 135/79
[2022-09-16 18:35] LABS: BILIRUBIN,URINE NEGATIVE (NEGATIVE); GLUCOSE, URINE (UA) >=1000 mg/dL (NEGATIVE); KETONES,URINE (UA) 40 mg/dL (NEGATIVE); LEUKOCYTE ESTERASE, URINE NEGATIVE (NEGATIVE); NITRITE,URINE NEGATIVE (NEGATIVE); OCCULT BLOOD,URINE MODERATE (NEGATIVE); PH,URINE 5.5 PH (5.0-7.5); PROTEIN,URINE 30 mg/dL (NEGATIVE); UROBILINOGEN,URINE 0.2 (NORMAL) E.U./dL (NORMAL)
[2022-09-16 18:44] LABS: CLARITY,URINE CLEAR (CLEAR)
[2022-09-16 18:53] LABS: BACTERIA,URINE None Seen /HPF (None Seen); SQUAMOUS EPITHELIAL CELL,UR RARE Squamous (<= Few); WBC,URINE 0-3 /HPF (0-3)
== END 2022-09-16 18:22 | disposition home or self-care (01) ==
LOC: ED 14:31
DX: R11.2 Nausea with vomiting, unspecified (principal); E11.65 Type 2 diabetes mellitus with hyperglycemia; T38.3X6A Underdosing of insulin and oral hypoglycemic [antidiabetic] drugs, initial encounter; D72.829 Elevated white blood cell count, unspecified; E87.20 Acidosis, unspecified; I48.0 Paroxysmal atrial fibrillation; Z79.4 Long term (current) use of insulin; Z79.85 Long-term (current) use of injectable non-insulin antidiabetic drugs
CPT/HCPCS: 36415; 71045; 74177; 80053; 81001; 82009; 82803; 83605; 83690; 85025; 93005; 96361; 96374; 96375; 99284; J1815; Q9967; 81003; 87086

== ENCOUNTER 2023-03-19 09:30 | Outpatient (CLI) | payer MEDICARE, OTHER | END 2023-03-19 09:31 | disposition critical access hospital (66) | LOC: EMS 09:30 | DX: R41.82 Altered mental status, unspecified (principal); R56.9 Unspecified convulsions; R45.1 Restlessness and agitation; Z78.1 Physical restraint status | CPT/HCPCS: A0425; A0429 ==

== ENCOUNTER 2023-03-19 09:49 | Inpatient (IN) | payer MEDICARE, OTHER ==
[2023-03-19] MEDS ORDERED: SODIUM CHLORIDE 0.9% 1,000 ML IV STA ×3 (09:54→14:08)
--- NOTE | 2023-03-19 09:55 | ED Physician Documentation ---
PD HPI ALTERED MENTAL STATUS - Stated complaint Stated Complaint: AGITATED/SEIZURE LIKE ACTIVITY - History obtained from History obtained from: Patient, Family (daughter), EMS (The medics report on their arrival the patient was agitated and confused and not following direction with deep rapid breathing.) - History of Present Illness Timing - onset: Today Timing - details: Gradual onset (The daughter states the patient seemed confused upon awakening this morning. He then had an episode of poor responsiveness/unresponsive and tightening of his muscles with some altered breathing. She thought it looked seizure-like. That then stopped and he was agitated and confused.), Still present Quality / character: Less responsive, Confused, Agitated Associated symptoms: NVD (vomiting the past 2 days). No: Fever, Headache, Dyspnea, Cough Contributing factors: Diabetic. No: Recent med change, Recent illness, Intoxicated Basline status: Alert and oriented X 3, Ambulatory Treatment CERTIFIED [employer]: Accucheck Recently seen: Not recently seen Review of Systems Constitutional: denies: Fever, Chills Nose: denies: Congestion Throat: denies: Sore throat Respiratory: denies: Cough GI: reports: Nausea (the past 1-2 days), Vomiting. denies: Diarrhea Neurologic: denies: Generalized weakness, Headache PD PAST MEDICAL HISTORY - Past Medical History Cardiovascular: Hypertension, High cholesterol, Coronary artery disease Respiratory: Sleep apnea Neuro: Peripheral neuropathy Endocrine/Autoimmune: Type 2 diabetes GI: GERD, Other : Benign prostate hypertrophy HEENT: None Psych: None Musculoskeletal: Chronic back pain Derm: Other - Past Surgical History Past Surgical History: Yes General: Colonoscopy Ortho: Rotator cuff repair, Spine surgery, Amputation Cardiovascular: CABG - Present Medications Home Medications: Ambulatory Orders Medication Instructions Recorded Confirmed Aspirin [Aspir 81] 81 mg PO DAILY 03/13/14 12/11/21 Metformin HCl 1,000 mg PO BID 03/13/14 12/11/21 Atorvastatin Calcium [Lipitor] 80 mg PO DAILY 12/09/20 09/16/22 Empagliflozin [Jardiance] 10 mg PO DAILY 12/09/20 12/11/21 Metoprolol Tartrate [Lopressor] 12.5 mg PO BID 12/09/20 09/16/22 DULoxetine [Cymbalta] 30 mg PO BID 12/10/20 12/11/21 Insulin Degludec [Tresiba 55 unit SQ DAILY 12/10/20 09/16/22 Flextouch U-200] Liraglutide [Victoza 2-Jaime] 1.8 mg SQ .QWEEK 12/10/20 09/16/22 Ondansetron Odt [Zofran] 4 mg TL Q6H PRN #10 tablet 12/11/21 Prochlorperazine Supp [Compazine 25 mg [place] BID PRN #10 supp 12/11/21 Supp] cephALEXin [Keflex] 500 mg PO BID 14 Days #28 cap 12/17/21 - Allergies Allergies/Adverse Reactions: Allergies Allergy/AdvReac Type Severity Reaction Status Date / Time No Known Drug Allergies Allergy Verified 03/19/23 10:01 - Social History Does the pt smoke?: No Smoking Status: Never smoker Does the pt drink ETOH?: No Does the pt have substance abuse?: Yes - Immunizations Immunizations are current?: Yes - POLST Patient has POLST: No PD ED PE NORMAL - Vitals Vital signs reviewed: Yes - General General: Well developed/nourished, Other (Initially agitated with quick deep breaths. No wheezing. On focused and not following direction. Moving around in the bed.) - HEENT HEENT: Atraumatic, Moist mucous membranes, Pharynx benign - Neck Neck: Supple, no meningeal sign, No adenopathy - Cardiac Cardiac: No murmur. No: RRR (regular and mild tachycardia) - Respiratory Respiratory: No respiratory distress (but deeper quick breathing.), Clear bilaterally - Abdomen Abdomen: Normal bowel sounds, Soft, Non distended - Derm Derm: Normal color, Warm and dry - Extremities Extremities: Normal ROM s pain, No edema, No calf tenderness / cord, Other (left foot prior mid foot amputation. ) - Neuro Neuro: Alert and oriented X 3 (not initially but became gradually so after 15-20 minutes here in ER. ), No motor deficit Eye Opening: Spontaneous Motor: Localizes to Pain Verbal: Confused GCS Score: 13 Results - Vitals Vitals: Vital Signs - 24 hr 03/19/23 03/19/23 03/19/23 09:53 10:31 11:01 Temperature 36.6 C Heart Rate 110 H 98 98 Respiratory 20 16 15 Rate Blood Pressure 148/72 H 125/78 122/76 O2 Saturation 98 100 98 03/19/23 03/19/23 03/19/23 11:54 12:00 12:30 Temperature Heart Rate 96 101 H 104 H Respiratory 15 16 16 Rate Blood Pressure 180/73 H 165/96 H 142/64 H O2 Saturation 100 98 98 03/19/23 13:00 Temperature Heart Rate 99 Respiratory 15 Rate Blood Pressure 150/84 H O2 Saturation 99 Oxygen O2 Source Room air - Labs Labs: Laboratory Tests 03/19/23 03/19/23 03/19/23 09:58 10:08 10:08 WBC 28.8 H RBC 5.64 Hgb 15.7 Hct 46.9 MCV 83.2 MCH 27.8 MCHC 33.5 RDW 15.4 H Plt Count 329 MPV 10.2 Neut # (Auto) 25.3 H Lymph # (Auto) 2.0 [place] # (Auto) 1.3 H Eos # (Auto) 0.0 Baso # (Auto) 0.1 Absolute Nucleated RBC 0.00 Nucleated RBC % 0.0 Manual Slide Review Indicated Platelet Estimate NORMAL (130-450,000) Platelet Morphology NORMAL APPEARANCE RBC Morph Micro Appear NORMAL APPEARANCE VBG pH VBG pCO2 VBG pO2 VBG HCO3 VBG Total CO2 VBG O2 Saturation VBG Base Excess Sodium 136 Potassium 3.3 L Chloride 92 L Carbon Dioxide 13 L Anion Gap 31.0 H BUN 28 H Creatinine 1.3 Estimated GFR (MDRD) 55 L Glucose 434 H POC Whole Bld Glucose 344 H Calcium 12.8 H* Magnesium 2.0 Total Bilirubin 0.7 AST 16 ALT 21 Alkaline Phosphatase 111 Total Protein 7.6 Albumin 4.4 Globulin 3.2 Albumin/Globulin Ratio 1.4 Lipase 21 Urine Color Urine Clarity Urine pH Ur Specific [place] Urine Protein Urine Glucose (UA) Urine Ketones Urine Occult Blood Urine Nitrite Urine Bilirubin Urine Urobilinogen Ur Leukocyte Esterase Urine RBC Urine WBC Ur Squamous Epith Cells Amorphous Sediment Urine Bacteria Ur Microscopic Review Urine Culture Comments Salicylates < 1.5 Urine Opiates Screen Ur Oxycodone Screen Urine Methadone Screen Ur Propoxyphene Screen Acetaminophen 0.3 Ur Barbiturates Screen Ur Tricyclics Screen Ur Phencyclidine Scrn Ur Amphetamine Screen U Methamphetamines Scrn U Benzodiazepines Scrn Urine Cocaine Screen U Cannabinoids Screen Ethyl Alcohol < 10.0 Serum Ketones SMALL H 03/19/23 03/19/23 03/19/23 10:08 11:45 11:55 WBC RBC Hgb Hct MCV MCH MCHC RDW Plt Count MPV Neut # (Auto) Lymph # (Auto) [place] # (Auto) Eos # (Auto) Baso # (Auto) Absolute Nucleated RBC Nucleated RBC % Manual Slide Review Platelet Estimate Platelet Morphology RBC Morph Micro Appear VBG pH 7.390 VBG pCO2 22.8 L VBG pO2 68.6 H VBG HCO3 13.5 L VBG Total CO2 14.2 L VBG O2 Saturation 93.8 H VBG Base Excess -8.9 L Sodium Potassium Chloride Carbon Dioxide Anion Gap BUN Creatinine Estimated GFR (MDRD) Glucose POC Whole Bld Glucose 412 H Calcium Magnesium Total Bilirubin AST ALT Alkaline Phosphatase Total Protein Albumin Globulin Albumin/Globulin Ratio Lipase Urine Color YELLOW Urine Clarity CLEAR Urine pH 5.5 Ur Specific [place] 1.025 Urine Protein 30 H Urine Glucose (UA) >=1000 H Urine Ketones >=80 H Urine Occult Blood SMALL H Urine Nitrite NEGATIVE Urine Bilirubin NEGATIVE Urine Urobilinogen 0.2 (NORMAL) Ur Leukocyte Esterase NEGATIVE Urine RBC 0-5 Urine WBC 0-3 Ur Squamous Epith Cells NONE SEEN Amorphous Sediment Rare Urine Bacteria Rare Ur Microscopic Review INDICATED Urine Culture Comments NOT INDICATED Salicylates Urine Opiates Screen NEGATIVE Ur Oxycodone Screen NEGATIVE Urine Methadone Screen NEGATIVE Ur Propoxyphene Screen NEGATIVE Acetaminophen Ur Barbiturates Screen NEGATIVE Ur Tricyclics Screen NEGATIVE Ur Phencyclidine Scrn NEGATIVE Ur Amphetamine Screen NEGATIVE U Methamphetamines Scrn NEGATIVE U Benzodiazepines Scrn NEGATIVE Urine Cocaine Screen NEGATIVE U Cannabinoids Screen POSITIVE H Ethyl Alcohol Serum Ketones 03/19/23 12:07 WBC RBC Hgb Hct MCV MCH MCHC RDW Plt Count MPV Neut # (Auto) Lymph # (Auto) [place] # (Auto) Eos # (Auto) Baso # (Auto) Absolute Nucleated RBC Nucleated RBC % Manual Slide Review Platelet Estimate Platelet Morphology RBC Morph Micro Appear VBG pH VBG pCO2 VBG pO2 VBG HCO3 VBG Total CO2 VBG O2 Saturation VBG Base Excess Sodium Potassium Chloride Carbon Dioxide Anion Gap BUN Creatinine Estimated GFR (MDRD) Glucose POC Whole Bld Glucose Calcium Magnesium Total Bilirubin AST ALT Alkaline Phosphatase Total Protein Albumin Globulin Albumin/Globulin Ratio Lipase Urine Color Urine Clarity Urine pH Ur Specific [place] Urine Protein Urine Glucose (UA) Urine Ketones Urine Occult Blood Urine Nitrite Urine Bilirubin Urine Urobilinogen Ur Leukocyte Esterase Urine RBC Urine WBC Ur Squamous Epith Cells Amorphous Sediment Urine Bacteria Ur Microscopic Review Urine Culture Comments Salicylates Urine Opiates Screen Ur Oxycodone Screen Urine Methadone Screen Ur Propoxyphene Screen Acetaminophen Ur Barbiturates Screen Ur Tricyclics Screen Ur Phencyclidine Scrn Ur Amphetamine Screen U Methamphetamines Scrn U Benzodiazepines Scrn Urine Cocaine Screen U Cannabinoids Screen Ethyl Alcohol Serum Ketones SMALL H - Rads (name of study) head CT Relevant Findings:: Prelim report reviewed (no acute changes), EMP independent interpretation of test chest xray Relevant Findings:: Prelim report reviewed (No acute cardiopulmonary process), EMP independent interpretation of test PD Medical Decision Making - ED course ED course: The patient without altered mental status and agitation with seizure-like activity noted by his daughter. No history of seizures known. His daughter states the patient's did describe him having an episode of abnormal breathing and tight in the muscles during the middle of the night a few weeks ago but then he improved shortly after. They did not seek evaluation for that. The patient has felt well otherwise last few days without any fevers, coughing, or congestion. The daughter does report he had had some vomiting episodically the last 2 days but no diarrhea. Patient does have history of diabetes. EMS noted the patient's blood sugar to actually be elevated in the 300-400 range and not low. Blood pressure was adequate. En route medics report the patient having deep rapid breathing concerning for acidosis. He also was agitated and not responding to direction. On arrival to the ER the patient was still unfocused and not talking or answering questions or following direction. Initially soft restraints were placed for this. However within 10 or 15 minutes he was less agitated and able to and slur his name. The restraints were removed. The patient subsequently improved to being conversant. His breathing improved. Lab tests were done and a blood gas showed a pH of 7.39 with small ketones and blood and a blood sugar 434. He did therefore appear slightly ketotic but not significantly acidotic to account for nausea vomiting altered mentation nor his breathing. Consideration could still be for new onset seizures with a apparent postictal period this may need more further investigation. The patient has improved mentation but he says he still feels a bit weak. He still had small ketones on repeat blood testing after 2 L of fluid. Blood sugar was now in the 300s. I did not initiate any insulin with fluids for now. Contact was made with the hospitalist to see about hospitalization and the hospitalist was in concurrence. Other blood tests showed's elevated calcium of 12.7. Slightly low potassium. White count was elevated. Chest x-ray was clear without any signs of infiltrates. Head CT was done without any acute abnormalities. Departure - Departure Disposition: 66 [facility] DC/Xfer Clinical Impression: Ketosis due to diabetes, Hyperglycemia, Altered mental status, Observed seizure-like activity Condition: Stable
[2023-03-19] MEDS ORDERED: LORazepam 2 MG/ML VIAL IVP STA (10:09)
[2023-03-19 10:16] LABS: VBG PH 7.39 (7.31-7.41)
[2023-03-19 10:17] LABS: BASOPHILS # (AUTO) 0.1 10^3/uL (0.0-0.1); BASOPHILS % (AUTO) 0.2 %; HCT - HEMATOCRIT 46.9 % (42.0-52.0); HGB - HEMOGLOBIN 15.7 g/dL (14.0-18.0); LYMPHOCYTES % (AUTO) 6.8 %; MEAN CORPUSCULAR HEMOGLOBIN 27.8 pg (27.0-31.0); MEAN CORPUSCULAR HGB CONC 33.5 g/dL (32.0-36.0); MEAN CORPUSCULAR VOLUME 83.2 fL (80.0-94.0); MEAN PLATELET VOLUME 10.2 fL (7.4-11.4); MONOCYTES # (AUTO) 1.3 10^3/uL (0.0-1.0); MONOCYTES % (AUTO) 4.4 %; NEUTROPHILS # (AUTO) 25.3 10^3/uL (1.5-6.6); NEUTROPHILS % (AUTO) 87.8 %; PLT - PLATELET COUNT 329 10^3/uL (130-450); RED BLOOD COUNT 5.64 10^6/uL (4.70-6.10); RED CELL DISTRIBUTION WIDTH 15.4 % (12.0-15.0); VBG PCO2 22.8 mmHg (41-51); VBG PO2 68.6 mmHg (25-47); WHITE BLOOD COUNT 28.8 x10^3/uL (4.8-10.8)
[2023-03-19 10:18] LABS: VBG BASE EXCESS -8.9 mmol/L (-2 - +2); VBG HCO3 13.5 mmol/L (23-28); VBG TOTAL CO2 14.2 mmol/L (24-29)
[2023-03-19 10:19] LABS: VBG OXYGEN SATURATION 93.8 % (60-80)
[2023-03-19 10:22] LABS: SLIDE REVIEW? Indicated
[2023-03-19 10:33] LABS: ACETAMINOPHEN 0.3 ug/mL; ALBUMIN 4.4 g/dL (3.2-5.5); ETOH - ETHANOL < 10.0 mg/dL; LIPASE 21 U/L (11-82)
[2023-03-19 10:36] LABS: ALBUMIN/GLOBULIN RATIO 1.4 (1.0-2.2); ALKALINE PHOSPHATASE 111 IU/L (42-121); ALT ALANINE AMINOTRANSFERASE 21 IU/L (10-60); AST ASPARTATE AMINOTRANSFERASE 16 IU/L (10-42); BILIRUBIN,TOTAL 0.7 mg/dL (0.2-1.0); BUN - BLOOD UREA NITROGEN 28 mg/dL (6-20); CALCIUM 12.8 mg/dL (8.5-10.3); CARBON DIOXIDE - CO2 13 mmol/L (21-32); CHLORIDE 92 mmol/L (101-111); CREATININE 1.3 mg/dL (0.6-1.3); GFR - MDRD 55 (>89); GLUCOSE 434 mg/dL (74-104); POTASSIUM 3.3 mmol/L (3.5-4.5); SODIUM 136 mmol/L (135-145); TOTAL PROTEIN 7.6 g/dL (6.4-8.9)
[2023-03-19 10:37] LABS: SALICYLATE < 1.5 mg/dL
[2023-03-19 10:43] LABS: KETONES, SERUM (ACETEST) SMALL (NEGATIVE)
[2023-03-19 10:45] LABS: PLATELET ESTIMATE, MANUAL NORMAL (130-450,000) (NORMAL); PLATELET MORPHOLOGY NORMAL APPEARANCE (NORMAL); RBC MORPHOLOGY (MULTIPLE) NORMAL APPEARANCE (NORMAL)
--- NOTE | 2023-03-19 11:04 | XRAY Report ---
PROCEDURE: Chest 1 View X-Ray INDICATIONS: altered mentation; seizure TECHNIQUE: One view of the chest was acquired. COMPARISON: None. FINDINGS: Surgical changes and devices: Status post median sternotomy. Lungs and pleura: No pleural effusions or pneumothorax. Lungs are clear. Mediastinum: Mediastinal contours appear normal. Heart size is normal. The aorta is tortuous. Bones and chest wall: No suspicious bony lesions. Overlying soft tissues appear unremarkable. IMPRESSION: No acute cardiopulmonary process. Reviewed by: Karsten Kim on 03/19/2023 11:02 AM PDT Approved by: Karsten Kim on 03/19/2023 11:02 AM PDT Station ID: [id number]
[2023-03-19 11:52] LABS: MUDS CUTOFF CONCENTRATIONS CUTOFF CONC BELOW:
[2023-03-19 11:55] LABS: BILIRUBIN,URINE NEGATIVE (NEGATIVE); GLUCOSE, URINE (UA) >=1000 mg/dL (NEGATIVE); KETONES,URINE (UA) >=80 mg/dL (NEGATIVE); LEUKOCYTE ESTERASE, URINE NEGATIVE (NEGATIVE); NITRITE,URINE NEGATIVE (NEGATIVE); OCCULT BLOOD,URINE SMALL (NEGATIVE); PH,URINE 5.5 PH (5.0-7.5); PROTEIN,URINE 30 mg/dL (NEGATIVE); UROBILINOGEN,URINE 0.2 (NORMAL) E.U./dL (NORMAL)
[2023-03-19 11:58] LABS: CLARITY,URINE CLEAR (CLEAR)
--- NOTE | 2023-03-19 12:08 | CT Report ---
PROCEDURE: HEAD WO INDICATIONS: AMS, seizure new onset TECHNIQUE: Noncontrast 4.5 mm thick angled axial sections acquired from the foramen magnum to the vertex. For r adiation dose reduction, the following was used: automated exposure control, adjustment of mA and/or kV according to patient size. COMPARISON: None. FINDINGS: Image quality: Excellent. CSF spaces: Basal cisterns are patent. No extra-axial fluid collections. Ventricles are normal in size and shape. Brain: No midline shift. No intracranial masses or hemorrhage. Pond-white matter interface is norm al. Subcortical and periventricular hypodensities are consistent with microvascular ischemic disease and age-related cerebral volume loss. Skull and face: Calvarium and visualized facial bones are intact, without suspicious lesions. Sinuses: Visualized sinuses and mastoids are clear. IMPRESSION: 1. No acute intracranial abnormality. 2. Microvascular ischemic disease and age-related cerebral volume loss. Reviewed by: Karsten Kim on 03/19/2023 12:07 PM PDT Approved by: Karsten Kim on 03/19/2023 12:07 PM PDT Station ID: [id number]
[2023-03-19 12:09] LABS: AMPHETAMINE SCREEN,URINE NEGATIVE (NEGATIVE); BARBITURATE SCREEN,UR NEGATIVE (NEGATIVE); BENZODIAZEPINES SCREEN, URINE NEGATIVE (NEGATIVE); COCAINE SCREEN URINE NEGATIVE (NEGATIVE); METHADONE SCREEN, URINE NEGATIVE (NEGATIVE); METHAMPHETAMINES SCREEN, URINE NEGATIVE (NEGATIVE); OPIATE SCREEN, URINE NEGATIVE (NEGATIVE); OXYCODONE SCREEN, URINE NEGATIVE (NEGATIVE); PROPOXYPHENE SCREEN, URINE NEGATIVE (NEGATIVE); THC CANNABINOID SCREEN, URINE POSITIVE (NEGATIVE); TRICYCLIC ANTIDEPRESSANT,URINE NEGATIVE (NEGATIVE)
[2023-03-19 12:14] LABS: RBC,URINE 0-5 /HPF (0-5); SQUAMOUS EPITHELIAL CELL,UR NONE SEEN (<= Few); WBC,URINE 0-3 /HPF (0-3)
[2023-03-19 12:15] LABS: AMORPHOUS SEDIMENT,UR Rare /LPF; BACTERIA,URINE Rare /HPF (None Seen)
[2023-03-19] MEDS ORDERED: ONDANSETRON 4 MG/2 ML VIAL IVP STA (13:04)
[2023-03-19] MEDS ORDERED: ACETAMINOPHEN 325 MG TABLET PO PRN (13:13)
[2023-03-19] MEDS ORDERED: SODIUM CHLORIDE FLUSH 0.9% 10 ML SYRINGE IVP PRN (13:13)
[2023-03-19 14:00] LABS: KETONES, SERUM (ACETEST) MODERATE (NEGATIVE)
[2023-03-19] MEDS ORDERED: SODIUM CHLORIDE 0.9% 1,000 ML IV SCH (14:00)
[2023-03-19] MEDS ORDERED: INSULIN REGULAR IN 0.9 % NS 100 UNIT/100 ML BAG IV SCH (14:00)
[2023-03-19 14:10] LABS: MAGNESIUM 1.8 mg/dL (1.7-2.3)
[2023-03-19 14:11] LABS: BUN - BLOOD UREA NITROGEN 25 mg/dL (6-20); CALCIUM 11.6 mg/dL (8.5-10.3); CARBON DIOXIDE - CO2 19 mmol/L (21-32); CHLORIDE 98 mmol/L (101-111); GFR - MDRD 75 (>89); GLUCOSE 362 mg/dL (74-104); POTASSIUM 3.7 mmol/L (3.5-4.5); SODIUM 138 mmol/L (135-145)
[2023-03-19 15:45] LABS: BUN - BLOOD UREA NITROGEN 26 mg/dL (6-20); CARBON DIOXIDE - CO2 18 mmol/L (21-32); CHLORIDE 100 mmol/L (101-111); CREATININE 1.1 mg/dL (0.6-1.2); GFR - MDRD 67 (>89); GLUCOSE 326 mg/dL (70-100); MAGNESIUM 1.9 mg/dL (1.7-2.8); POTASSIUM 3.6 mmol/L (3.5-5.0); SODIUM 136 mmol/L (135-145)
--- NOTE | 2023-03-19 15:48 | PHARMACY PROGRESS NOTE ---
- Best Possible Medication History Admit Date and Time: 03/19/23 1313 Processed by: Pharmacy Medication History completed: Yes Patient Interview: Pt unable to participate Secondary Source(s): Pharmacy records As the person ultimately responsible for medication therapy, providers are able to order a medication from an existing home medication list in [facility] via the "Reconcile Routine" prior to Confirmation of that medication by product support sales representative. Such practice is discouraged except when the physician, in their clinical judgment, deems that a medical need exists for a medication without regard to previous use.
[2023-03-19] MEDS ORDERED: POTASSIUM CHLOR 10 MEQ/100 ML 10 MEQ/100 ML BAG IV ONE ×3 (15:50→22:41)
[2023-03-19 16:04] LABS: KETONES, SERUM (ACETEST) MODERATE (NEGATIVE)
[2023-03-19] MEDS: SODIUM CHLORIDE FLUSH 0.9% 10 ML SYRINGE IVP SCH (16:26)
--- NOTE | 2023-03-19 16:47 | HISTORY & PHYSICAL EXAMINATION ---
Chief Complaint - Chief Complaint Chief Complaint: AMS History of Present Illness - Admitted From Admitted From:: ED - History Obtained From History obtained from: ED provider and chart review - History of Present Illness HPI Comment/Other: This is a 67-year-old male with a past medical history significant for type 2 diabetes mellitus treated with insulin, coronary artery disease, has had toe and distal foot amputations and a history of being seen in our wound clinic, had an admission here in 2020 with DKA and hypercalcemia. His hemoglobin A1c was 14 then and it was suspected he was non-compliant with diabetic meds, suspected to have diabetic gastroparesis and also hyperemesis from using marijuana, and hypercalcemia from using excessive Tums. He presented to our ER today, BIBA and medics reported on their arrival the patient was agitated and confused and not following directions, also had deep rapid breathing, and acidosis was suspected. The daughter gave our ER doctor a report that the patient seemed confused upon awakening this morning. He then had an episode of poor responsiveness/unresponsiveness and "tightening of his muscles" with some altered breathing. She thought it looked seizure-like, which then stopped and he was less responsive, agitated and confused. He had vomiting the past 2 days, but no diarrhea. The daughter was not aware of him having any cough, shortness of breath, or dysuria. There is no history of seizure disorder. In the ER, he was initially minimally responsive, was put in safety restraints briefly, then slowly awoke and was able to speak normally to the ER provider and reported he felt weak. He underwent head CT that showed no acute findings. Chest x-ray was WNL. No abdominal imaging was done. Labs showed a white blood count of 28, low serum bicarb of 13, elevated anion gap of 30, pH on VBG of 7.35, small serum ketones were present and serum glucose level 429. The ED provider then spoke to me about this patient. He will be admitted to the ICU for treating diabetic ketosis, hyperglycemia, and altered mental status. Patient is somnolent and does not give me any details. During the last admission for DKA in 2020, he wanted to be a Full Code. History - Past Medical History Cardiovascular: reports: Hypertension, High cholesterol, Coronary artery disease Respiratory: reports: Sleep apnea Neuro: reports: Peripheral neuropathy Endocrine/Autoimmune: reports: Type 2 diabetes GI: reports: GERD, Other : reports: Benign prostate hypertrophy HEENT: reports: None Psych: reports: None Musculoskeletal: reports: Chronic back pain Derm: reports: Other MRSA Hx?: No - Past Surgical History General: reports: Colonoscopy Ortho: reports: Rotator cuff repair, Spine surgery, Amputation Cardiovascular: reports: CABG - Family & Social History Family History Comment/Other: From last hospital stay: Reports both of his parents had diabetes and heart disease. No family history of cancer. Living Situation: With spouse/s.o. Social History Notes: From last hospital stay: He lives at home with his . They have lived on [address] [facility] for over 25 years. He is now retired but previously worked in the [employer] industry. He is a non-smoker of cigarettes and rarely drinks alcohol. He smokes marijuana about 3-4 times a week and has been doing so for many years. - Substance History Use: Uses substance without health or social issues: Cannabis - POLST Patient has POLST: No Meds/Allgy - Home Medications Home Medications: Ambulatory Orders Medication Instructions Recorded Confirmed Metformin HCl 1,000 mg PO BID 03/13/14 03/19/23 Atorvastatin Calcium [Lipitor] 80 mg PO DAILY 12/09/20 03/19/23 Empagliflozin [Jardiance] 10 mg PO DAILY 12/09/20 03/19/23 Metoprolol Tartrate [Lopressor] 12.5 mg PO BID 12/09/20 03/19/23 DULoxetine [Cymbalta] 30 mg PO BID 12/10/20 03/19/23 Insulin Degludec [Tresiba 64 unit SQ DAILY 12/10/20 03/19/23 Flextouch U-200] Gabapentin [Neurontin] 300 mg PO BID 03/19/23 03/19/23 Triamcinolone 0.1% Oint 1 applic TOP QID PRN 03/19/23 03/19/23 - Allergies Allergies/Adverse Reactions: Allergies Allergy/AdvReac Type Severity Reaction Status Date / Time No Known Drug Allergies Allergy Verified 03/19/23 10:01 Review of Systems - All Other Systems All Other Systems: reports: Other (Unable to obtain as the patient is somnolent) Exam - Vital Signs Reviewed Vital Signs: Yes Vital Signs: Vital Signs x48h Temp Pulse Pulse Resp BP BP Pulse Ox 03/19/23 16:00 94 20 130/79 99 03/19/23 15:00 95 10 L 149/81 H 99 03/19/23 14:56 36.8 C 96 12 129/77 99 03/19/23 14:00 87 19 135/68 H 94 03/19/23 13:30 36.6 C 98 14 128/71 97 03/19/23 13:00 99 15 150/84 H 99 03/19/23 12:30 104 H 16 142/64 H 98 03/19/23 12:00 101 H 16 165/96 H 98 03/19/23 11:54 96 15 180/73 H 100 03/19/23 11:01 98 15 122/76 98 03/19/23 10:31 98 16 125/78 100 03/19/23 09:53 36.6 C 110 H 20 148/72 H 98 - Physical Exam General Appearance: positive: Lethargic (Awakens to name and to touch. Has normal speech, falls right back asleep) Eyes Bilateral: positive: No lid inflammation ENT: positive: Dry mucous membranes Neck: positive: Nml inspection, No JVD Respiratory: positive: No respiratory distress, Breath sounds nml Cardiovascular: positive: Regular rate & rhythm, No murmur Abdomen: positive: Non-tender, Nml bowel sounds Skin: positive: Warm, Dry Extremities: positive: No pedal edema, Other (Dorsum of left foot is amputated. Fourth right toe is amputated.) Neurologic/Psychiatric: positive: Other (Lethargic, awakens only briefly. Moves all extremities spontaneously.) Conclusion/Plan - Problem List (1) Ketosis due to diabetes Conclusion/Plan: This is similar to his admission in 2020 when he had positive serum ketones but a normal serum pH, therefore he is not acidotic. He is hyperglycemic. The cause for this is not entirely clear. The only symptoms that were abnormal recently was nausea and vomiting for 2 days. No other areas on exam seem to be a focus for an infection: CXR and U/A are unremarkable. Plan: Admit to the ICU. Start DKA protocol. Insulin drip and IV NS Follow serum ketones every 2 hours. IV insulin drip will continue until the serum ketones are negative. (2) Hyperglycemia due to diabetes mellitus Conclusion/Plan: His 2 days of nausea vomiting could have been his gastroparesis or the beginning of this diabetic ketosis. Plan: As above in #1. (3) Altered mental status Conclusion/Plan: This could be all from diabetic ketosis plus hyperglycemia. Looking for an infection has not revealed an obvious source. He did not have abdominal imaging however. The daughter reported to the ER doctor that there was some "tightening of his muscles". His head CT was unremarkable. No LP was done in the ER however. This is a more prolonged lethargy/somnolence then somebody would have after a seizure, since it has been about 8 hours since sxymptoms started this morning, therefore I doubt this is a postictal status. Plan: Admit him into the ICU. Neurochecks every 4 hours will be ordered. Continue with aggressive DKA management. I will order CT imaging of the abdomen, possibly there is an infectious focus there. An LP may be necessary (4) Leukocytosis Conclusion/Plan: This could be a severe demargination, stress response. The biggest concern is there is an infection somewhere but the focus is not immediately clear. Also, his lactic acid level is normal. Plan: Will obtain empiric blood cultures Will obtain CT abdominal imaging to look for a potential source of infection Will continue with aggressive IV fluids and DKA management and not start empiric antibiotics. An LP may be necessary Follow CBC daily (5) Hypercalcemia Conclusion/Plan: He had a similar very high calcium of 14 the last time he was here with DKA. It was determined that he was taking excessive Tums. Plan: Follow his albumin and calcium daily Continue with aggressive IV fluids as part of the DKA protocol. When he awakens and can describe his usual habits will determine if he has excessive vitamin D or Tums or calcium supplement intake. Will check a serum PTH - Lab Results Fish Bones: 03/19/23 10:08 03/19/23 17:22 - Diagnostic Imaging Results Diagnostic Imaging Results: positive: Final report reviewed - Other Other Results/Comments: Attestation: The patient is expected to be discharged or transferred to another facility within 96 hours: Yes.
[2023-03-19 17:37] LABS: KETONES, SERUM (ACETEST) SMALL (NEGATIVE)
[2023-03-19 17:48] LABS: BUN - BLOOD UREA NITROGEN 24 mg/dL (6-20); CALCIUM 11.2 mg/dL (8.5-10.3); CARBON DIOXIDE - CO2 25 mmol/L (21-32); CHLORIDE 102 mmol/L (101-111); GFR - MDRD 75 (>89); GLUCOSE 156 mg/dL (74-104); MAGNESIUM 1.6 mg/dL (1.7-2.3); POTASSIUM 3.6 mmol/L (3.5-4.5); SODIUM 139 mmol/L (135-145)
[2023-03-19] MEDS: DEXTROSE 5%-0.9% NACL 1,000 ML IV SCH (17:56)
[2023-03-19] MEDS ORDERED: MAGNESIUM SULFATE 2 GRAM 2 GM/50 ML BAG IV ONE (17:59)
[2023-03-19] MEDS: FAMOTIDINE 20 MG/2 ML VIAL IVP SCH (20:56)
[2023-03-19] MEDS: ONDANSETRON 4 MG/2 ML VIAL IVP PRN (20:56)
[2023-03-19 21:55] LABS: CALCIUM, IONIZED 1.21 mmol/L (1.15-1.33); VBG PH 7.479 (7.31-7.41)
[2023-03-19 22:03] LABS: MAGNESIUM 1.9 mg/dL (1.7-2.8); PHOSPHORUS 3.4 mg/dL (2.5-4.6)
[2023-03-19 22:31] LABS: GLUCOSE, URINE (UA) 500 mg/dL (NEGATIVE); KETONES,URINE (UA) >=80 mg/dL (NEGATIVE); LEUKOCYTE ESTERASE, URINE NEGATIVE (NEGATIVE); NITRITE,URINE NEGATIVE (NEGATIVE); OCCULT BLOOD,URINE MODERATE (NEGATIVE); PH,URINE 5.5 PH (5.0-7.5); PROTEIN,URINE 100 mg/dL (NEGATIVE); UROBILINOGEN,URINE 0.2 (NORMAL) E.U./dL (NORMAL)
[2023-03-19 22:34] LABS: BILIRUBIN,URINE NEGATIVE (NEGATIVE); CLARITY,URINE CLEAR (CLEAR); ICTOTEST,URINE NEGATIVE
[2023-03-19 22:41] LABS: BACTERIA,URINE None Seen /HPF (None Seen); SQUAMOUS EPITHELIAL CELL,UR NONE SEEN (<= Few); WBC,URINE 0-3 /HPF (0-3)
[2023-03-20] MEDS ORDERED: INSULIN REGULAR HUMAN 100 UNIT in SODIUM CHLORIDE 0.9% 100ML 99 ML IV ONE (02:00)
[2023-03-20] MEDS: SODIUM CHLORIDE FLUSH 0.9% 10 ML SYRINGE IVP SCH ×3 (02:36→17:31)
[2023-03-20] MEDS: DEXTROSE 5%-0.9% NACL 1,000 ML IV SCH ×2 (02:36→11:09)
[2023-03-20] MEDS: ONDANSETRON 4 MG/2 ML VIAL IVP PRN (04:04)
[2023-03-20 05:04] LABS: BASOPHILS % (AUTO) 0.2 %; HCT - HEMATOCRIT 45.3 % (42.0-52.0); HGB - HEMOGLOBIN 15.3 g/dL (14.0-18.0); LYMPHOCYTES % (AUTO) 4.4 %; MEAN CORPUSCULAR HEMOGLOBIN 28.2 pg (27.0-31.0); MEAN CORPUSCULAR HGB CONC 33.8 g/dL (32.0-36.0); MEAN CORPUSCULAR VOLUME 83.4 fL (80.0-94.0); MEAN PLATELET VOLUME 9.6 fL (7.4-11.4); MONOCYTES % (AUTO) 7.9 %; NEUTROPHILS % (AUTO) 86.5 %; PLT - PLATELET COUNT 241 10^3/uL (130-450); RED BLOOD COUNT 5.43 10^6/uL (4.70-6.10); RED CELL DISTRIBUTION WIDTH 15.6 % (12.0-15.0); WHITE BLOOD COUNT 25.5 x10^3/uL (4.8-10.8)
[2023-03-20 05:08] LABS: CALCIUM, IONIZED 1.2 mmol/L (1.15-1.33); VBG PH 7.404 (7.31-7.41)
[2023-03-20 05:13] LABS: ABNORMAL LYMPHS % (MANUAL) 0 %
[2023-03-20 05:31] LABS: CALCIUM 9.7 mg/dL (8.5-10.3); CREATININE 0.9 mg/dL (0.6-1.3); POTASSIUM 3.6 mmol/L (3.5-4.5)
[2023-03-20 05:42] LABS: BAND NEUTROPHILS % (MANUAL) 9 %; DIFFERENTIAL COMMENT MANUAL DIFFERENTIAL; LYMPHOCYTES # (MANUAL) 2.6 10^3/uL (1.5-3.5); LYMPHOCYTES % (MANUAL) 10 %; MONOCYTES # (MANUAL) 2.6 10^3/uL (0.0-1.0); NEUTROPHILS # (MANUAL) 20.4 10^3/uL (1.5-6.6); PLATELET ESTIMATE, MANUAL NORMAL (130-450,000) (NORMAL); RBC MORPHOLOGY (MULTIPLE) NORMAL APPEARANCE (NORMAL)
[2023-03-20 05:43] LABS: MAGNESIUM 1.6 mg/dL (1.7-2.3); PHOSPHORUS 2.4 mg/dL (2.5-5.0)
[2023-03-20] MEDS ORDERED: POTASSIUM CHLOR 10 MEQ/100 ML 10 MEQ/100 ML BAG IV ONE (06:13)
[2023-03-20] MEDS ORDERED: POTASSIUM PHOSPHATE 15 MMOL in SODIUM CHLORIDE 0.9% 250 ML IV ONE ×2 (06:20→17:59)
[2023-03-20] MEDS ORDERED: MAGNESIUM SULFATE 2 GRAM 2 GM/50 ML BAG IV ONE ×2 (06:42→15:37)
--- NOTE | 2023-03-20 09:13 | CT Report ---
PROCEDURE: ABDOMEN/PELVIS WO INDICATIONS: N/V, Leukocytosis TECHNIQUE: A CT scan of the abdomen and pelvis was performed without the use of intravenous contrast. Images we re recorded and evaluated at appropriate window settings. Reformats: coronal and sagittal. For radiat ion dose reduction, the following was used: automated exposure control, adjustment of mA and/or kV ac cording to patient size. COMPARISON: 09/16/2022 FINDINGS: Image quality: Excellent. Lung bases and heart: Minimal bilateral pleural effusions with minimal bibasilar atelectasis. Normal heart size. Severe coronary artery calcifications. Liver: No solid mass. Gallbladder and biliary tree: Tiny dependent layering stones or gravel in the gallbladder. Gallbladde r is nondistended with no collateral wall thickening. Spleen: No splenomegaly. Pancreas: No pancreatic ductal dilation. Adrenals: No adrenal nodule. Kidneys and ureters: 6 mm right middle pole nonobstructing stone. No hydronephrosis. No obvious solid masses. Bowel and peritoneum: No bowel distension. No pathologic free fluid. Lymph nodes: No central or retroperitoneal adenopathy. Vessels: No infrarenal aortic aneurysm. PELVIS Reproductive organs: Unremarkable. Bladder: Mild bladder distention. No bladder wall thickening. Moderate prostate enlargement. Pelvic lymph nodes: No pelvic adenopathy by size criteria. Bones: No aggressive osseous abnormality. Extensive lumbar degenerative change with multilevel chroni c posterior peripherally calcified disc protrusions. Multilevel canal stenosis, most significant at L 1-L2 and L2-L3. Other: No significant ventral or inguinal hernia. IMPRESSION: 1. 6 mm nonobstructing right renal stone. No hydronephrosis. 2. Moderately enlarged prostate. Mild bladder distention without bladder wall thickening. 3. Dependent gravel versus tiny stones in the gallbladder. No gallbladder wall thickening. 4. Severe coronary artery calcifications. 5. Diffuse degenerative change in the lumbar spine. Multilevel canal stenosis, most severe at L1-L2 a nd L2-L3. Reviewed by: Jason Upton MD on 03/20/2023 9:12 AM PDT Approved by: Jason Upton MD on 03/20/2023 9:12 AM PDT Station ID: [id number]
[2023-03-20] MEDS: PROCHLORPERAZINE 10 MG/2 ML VIAL IVP PRN ×2 (09:53→17:13)
[2023-03-20] MEDS ORDERED: SODIUM CHLORIDE 0.9% 250 ML IV ONE (09:53)
[2023-03-20] MEDS: ASPIRIN EC 81 MG TABLET PO SCH (09:58)
[2023-03-20] MEDS: FAMOTIDINE 20 MG/2 ML VIAL IVP SCH (09:58)
[2023-03-20] MEDS: ENOXAPARIN 40 MG/0.4 ML SYRINGE SUBQ SCH (09:58)
[2023-03-20] MEDS ORDERED: INSULIN REGULAR IN 0.9 % NS 100 UNIT/100 ML BAG IV SCH (13:00)
[2023-03-20 13:15] LABS: ESTIMATED AVERAGE GLUCOSE 252 mg/dL (70-100); HEMOGLOBIN A1c% 10.4 % (4.27-6.07)
--- NOTE | 2023-03-20 16:25 | PROVIDER PROGRESS NOTE ---
Subjective - Subjective Pt reports feeling: No change (Still mostly asleep, opens his eyes briefly when spoken to or touched, was able to drink for the nurses) Objective - Vital Signs/Intake & Output Vital Signs: Vital Signs Pulse Resp BP Pulse Ox O2 Flow Rate 03/20/23 15:00 84 23 164/77 H 99 2 03/20/23 13:00 101 H 21 169/93 H 99 2 Intake & Output: Intake & Output 03/17/23 03/18/23 03/19/23 03/20/23 23:59 23:59 23:59 23:59 Intake Total 3097.122 2792.868 Output Total 1250 1325 Balance 7837.148 5712.868 - Objective General Appearance: positive: Lethargic, Other (Awakens for 2 seconds, is able to answer normally, falls back asleep) Eyes Bilateral: positive: No lid inflammation ENT: positive: Dry mucous membranes Neck: positive: Nml inspection, No JVD Respiratory: positive: No respiratory distress, Breath sounds nml Cardiovascular: positive: Regular rate & rhythm, No murmur Abdomen: positive: Non-tender, Nml bowel sounds, No distention Skin: positive: Warm, Dry Extremities: positive: Non-tender, No pedal edema Neurologic/Psychiatric: positive: Other (Obtunded, nonfocal) - Lab Results Fish Bones: 03/20/23 04:27 03/20/23 16:26 Other Labs: Lab Results x24hrs 03/20/23 03/20/23 03/20/23 Range/Units 15:58 15:02 13:53 WBC (4.8-10.8) x10^3/uL RBC (4.70-6.10) 10^6/uL Hgb (14.0-18.0) g/dL Hct (42.0-52.0) % MCV (80.0-94.0) fL MCH (27.0-31.0) pg MCHC (32.0-36.0) g/dL RDW (12.0-15.0) % Plt Count (130-450) 10^3/uL MPV (7.4-11.4) fL Neut # (Auto) Lymph # (Auto) [place] # (Auto) Eos # (Auto) Baso # (Auto) Absolute Nucleated RBC Total Counted Band Neuts % (Manual) (0 - 10) % Abnorm Lymph % (Manual) % Nucleated RBC % Neutrophils # (Manual) (1.5-6.6) 10^3/uL Lymphocytes # (Manual) (1.5-3.5) 10^3/uL Monocytes # (Manual) (0.0-1.0) 10^3/uL Eosinophils # (Manual) (0-0.7) 10^3/uL Basophils # (Manual) (0-0.1) 10^3/uL Differential Comment Platelet Estimate (NORMAL) RBC Morph Micro Appear (NORMAL) VBG pH (7.31-7.41) Ionized Calcium (1.15-1.33) mmol/L Sodium (135-145) mmol/L Potassium (3.5-4.5) mmol/L Chloride (101-111) mmol/L Carbon Dioxide (21-32) mmol/L Anion Gap (6-13) BUN (6-20) mg/dL Creatinine (0.6-1.3) mg/dL Estimated GFR (MDRD) (>89) Glucose (74-104) mg/dL POC Whole Bld Glucose 124 H 128 H 129 H (70 - 100) mg/dL Estimat Average Glucose (70-100) mg/dL Hemoglobin A1c % (4.27-6.07) % Calcium (8.5-10.3) mg/dL Phosphorus (2.5-5.0) mg/dL Magnesium (1.7-2.3) mg/dL Urine Color Urine Clarity (CLEAR) Urine pH (5.0-7.5) PH Ur Specific [place] (1.002-1.030) Urine Protein (NEGATIVE) mg/dL Urine Glucose (UA) (NEGATIVE) mg/dL Urine Ketones (NEGATIVE) mg/dL Urine Occult Blood (NEGATIVE) Urine Nitrite (NEGATIVE) Urine Bilirubin (NEGATIVE) Urine Urobilinogen (NORMAL) E.U./dL Ur Leukocyte Esterase (NEGATIVE) Urine RBC (0-5) /HPF Urine WBC (0-3) /HPF Ur Squamous Epith Cells (<= Few) Urine Bacteria (None Seen) /HPF Ur Microscopic Review Urine Culture Comments Nasal Screen MRSA (PCR) (NEGATIVE) Serum Ketones (NEGATIVE) 03/20/23 03/20/23 03/20/23 Range/Units 12:42 12:42 12:05 WBC (4.8-10.8) x10^3/uL RBC (4.70-6.10) 10^6/uL Hgb (14.0-18.0) g/dL Hct (42.0-52.0) % MCV (80.0-94.0) fL MCH (27.0-31.0) pg MCHC (32.0-36.0) g/dL RDW (12.0-15.0) % Plt Count (130-450) 10^3/uL MPV (7.4-11.4) fL Neut # (Auto) Lymph # (Auto) [place] # (Auto) Eos # (Auto) Baso # (Auto) Absolute Nucleated RBC Total Counted Band Neuts % (Manual) (0 - 10) % Abnorm Lymph % (Manual) % Nucleated RBC % Neutrophils # (Manual) (1.5-6.6) 10^3/uL Lymphocytes # (Manual) (1.5-3.5) 10^3/uL Monocytes # (Manual) (0.0-1.0) 10^3/uL Eosinophils # (Manual) (0-0.7) 10^3/uL Basophils # (Manual) (0-0.1) 10^3/uL Differential Comment Platelet Estimate (NORMAL) RBC Morph Micro Appear (NORMAL) VBG pH (7.31-7.41) Ionized Calcium (1.15-1.33) mmol/L Sodium (135-145) mmol/L Potassium (3.5-4.5) mmol/L Chloride (101-111) mmol/L Carbon Dioxide (21-32) mmol/L Anion Gap (6-13) BUN (6-20) mg/dL Creatinine (0.6-1.3) mg/dL Estimated GFR (MDRD) (>89) Glucose (74-104) mg/dL POC Whole Bld Glucose 150 H (70 - 100) mg/dL Estimat Average Glucose (70-100) mg/dL Hemoglobin A1c % (4.27-6.07) % Calcium (8.5-10.3) mg/dL Phosphorus (2.5-5.0) mg/dL Magnesium 1.6 L (1.7-2.3) mg/dL Urine Color Urine Clarity (CLEAR) Urine pH (5.0-7.5) PH Ur Specific [place] (1.002-1.030) Urine Protein (NEGATIVE) mg/dL Urine Glucose (UA) (NEGATIVE) mg/dL Urine Ketones (NEGATIVE) mg/dL Urine Occult Blood (NEGATIVE) Urine Nitrite (NEGATIVE) Urine Bilirubin (NEGATIVE) Urine Urobilinogen (NORMAL) E.U./dL Ur Leukocyte Esterase (NEGATIVE) Urine RBC (0-5) /HPF Urine WBC (0-3) /HPF Ur Squamous Epith Cells (<= Few) Urine Bacteria (None Seen) /HPF Ur Microscopic Review Urine Culture Comments Nasal Screen MRSA (PCR) (NEGATIVE) Serum Ketones NEGATIVE (NEGATIVE) 03/20/23 03/20/23 03/20/23 Range/Units 11:04 09:57 08:49 WBC (4.8-10.8) x10^3/uL RBC (4.70-6.10) 10^6/uL Hgb (14.0-18.0) g/dL Hct (42.0-52.0) % MCV (80.0-94.0) fL MCH (27.0-31.0) pg MCHC (32.0-36.0) g/dL RDW (12.0-15.0) % Plt Count (130-450) 10^3/uL MPV (7.4-11.4) fL Neut # (Auto) Lymph # (Auto) [place] # (Auto) Eos # (Auto) Baso # (Auto) Absolute Nucleated RBC Total Counted Band Neuts % (Manual) (0 - 10) % Abnorm Lymph % (Manual) % Nucleated RBC % Neutrophils # (Manual) (1.5-6.6) 10^3/uL Lymphocytes # (Manual) (1.5-3.5) 10^3/uL Monocytes # (Manual) (0.0-1.0) 10^3/uL Eosinophils # (Manual) (0-0.7) 10^3/uL Basophils # (Manual) (0-0.1) 10^3/uL Differential Comment Platelet Estimate (NORMAL) RBC Morph Micro Appear (NORMAL) VBG pH (7.31-7.41) Ionized Calcium (1.15-1.33) mmol/L Sodium (135-145) mmol/L Potassium (3.5-4.5) mmol/L Chloride (101-111) mmol/L Carbon Dioxide (21-32) mmol/L Anion Gap (6-13) BUN (6-20) mg/dL Creatinine (0.6-1.3) mg/dL Estimated GFR (MDRD) (>89) Glucose (74-104) mg/dL POC Whole Bld Glucose 160 H 174 H 172 H (70 - 100) mg/dL Estimat Average Glucose (70-100) mg/dL Hemoglobin A1c % (4.27-6.07) % Calcium (8.5-10.3) mg/dL Phosphorus (2.5-5.0) mg/dL Magnesium (1.7-2.3) mg/dL Urine Color Urine Clarity (CLEAR) Urine pH (5.0-7.5) PH Ur Specific [place] (1.002-1.030) Urine Protein (NEGATIVE) mg/dL Urine Glucose (UA) (NEGATIVE) mg/dL Urine Ketones (NEGATIVE) mg/dL Urine Occult Blood (NEGATIVE) Urine Nitrite (NEGATIVE) Urine Bilirubin (NEGATIVE) Urine Urobilinogen (NORMAL) E.U./dL Ur Leukocyte Esterase (NEGATIVE) Urine RBC (0-5) /HPF Urine WBC (0-3) /HPF Ur Squamous Epith Cells (<= Few) Urine Bacteria (None Seen) /HPF Ur Microscopic Review Urine Culture Comments Nasal Screen MRSA (PCR) (NEGATIVE) Serum Ketones (NEGATIVE) 03/20/23 03/20/23 03/20/23 Range/Units 08:49 07:53 06:58 WBC (4.8-10.8) x10^3/uL RBC (4.70-6.10) 10^6/uL Hgb (14.0-18.0) g/dL Hct (42.0-52.0) % MCV (80.0-94.0) fL MCH (27.0-31.0) pg MCHC (32.0-36.0) g/dL RDW (12.0-15.0) % Plt Count (130-450) 10^3/uL MPV (7.4-11.4) fL Neut # (Auto) Lymph # (Auto) [place] # (Auto) Eos # (Auto) Baso # (Auto) Absolute Nucleated RBC Total Counted Band Neuts % (Manual) (0 - 10) % Abnorm Lymph % (Manual) % Nucleated RBC % Neutrophils # (Manual) (1.5-6.6) 10^3/uL Lymphocytes # (Manual) (1.5-3.5) 10^3/uL Monocytes # (Manual) (0.0-1.0) 10^3/uL Eosinophils # (Manual) (0-0.7) 10^3/uL Basophils # (Manual) (0-0.1) 10^3/uL Differential Comment Platelet Estimate (NORMAL) RBC Morph Micro Appear (NORMAL) VBG pH (7.31-7.41) Ionized Calcium (1.15-1.33) mmol/L Sodium (135-145) mmol/L Potassium (3.5-4.5) mmol/L Chloride (101-111) mmol/L Carbon Dioxide (21-32) mmol/L Anion Gap (6-13) BUN (6-20) mg/dL Creatinine (0.6-1.3) mg/dL Estimated GFR (MDRD) (>89) Glucose (74-104) mg/dL POC Whole Bld Glucose 167 H 156 H (70 - 100) mg/dL Estimat Average Glucose (70-100) mg/dL Hemoglobin A1c % (4.27-6.07) % Calcium (8.5-10.3) mg/dL Phosphorus (2.5-5.0) mg/dL Magnesium (1.7-2.3) mg/dL Urine Color Urine Clarity (CLEAR) Urine pH (5.0-7.5) PH Ur Specific [place] (1.002-1.030) Urine Protein (NEGATIVE) mg/dL Urine Glucose (UA) (NEGATIVE) mg/dL Urine Ketones (NEGATIVE) mg/dL Urine Occult Blood (NEGATIVE) Urine Nitrite (NEGATIVE) Urine Bilirubin (NEGATIVE) Urine Urobilinogen (NORMAL) E.U./dL Ur Leukocyte Esterase (NEGATIVE) Urine RBC (0-5) /HPF Urine WBC (0-3) /HPF Ur Squamous Epith Cells (<= Few) Urine Bacteria (None Seen) /HPF Ur Microscopic Review Urine Culture Comments Nasal Screen MRSA (PCR) (NEGATIVE) Serum Ketones SMALL H (NEGATIVE) 03/20/23 03/20/23 03/20/23 Range/Units 06:04 04:55 04:27 WBC (4.8-10.8) x10^3/uL RBC (4.70-6.10) 10^6/uL Hgb (14.0-18.0) g/dL Hct (42.0-52.0) % MCV (80.0-94.0) fL MCH (27.0-31.0) pg MCHC (32.0-36.0) g/dL RDW (12.0-15.0) % Plt Count (130-450) 10^3/uL MPV (7.4-11.4) fL Neut # (Auto) Lymph # (Auto) [place] # (Auto) Eos # (Auto) Baso # (Auto) Absolute Nucleated RBC Total Counted Band Neuts % (Manual) (0 - 10) % Abnorm Lymph % (Manual) % Nucleated RBC % Neutrophils # (Manual) (1.5-6.6) 10^3/uL Lymphocytes # (Manual) (1.5-3.5) 10^3/uL Monocytes # (Manual) (0.0-1.0) 10^3/uL Eosinophils # (Manual) (0-0.7) 10^3/uL Basophils # (Manual) (0-0.1) 10^3/uL Differential Comment Platelet Estimate (NORMAL) RBC Morph Micro Appear (NORMAL) VBG pH 7.404 (7.31-7.41) Ionized Calcium 1.20 (1.15-1.33) mmol/L Sodium (135-145) mmol/L Potassium (3.5-4.5) mmol/L Chloride (101-111) mmol/L Carbon Dioxide (21-32) mmol/L Anion Gap (6-13) BUN (6-20) mg/dL Creatinine (0.6-1.3) mg/dL Estimated GFR (MDRD) (>89) Glucose (74-104) mg/dL POC Whole Bld Glucose 214 H 141 H (70 - 100) mg/dL Estimat Average Glucose (70-100) mg/dL Hemoglobin A1c % (4.27-6.07) % Calcium (8.5-10.3) mg/dL Phosphorus (2.5-5.0) mg/dL Magnesium (1.7-2.3) mg/dL Urine Color Urine Clarity (CLEAR) Urine pH (5.0-7.5) PH Ur Specific [place] (1.002-1.030) Urine Protein (NEGATIVE) mg/dL Urine Glucose (UA) (NEGATIVE) mg/dL Urine Ketones (NEGATIVE) mg/dL Urine Occult Blood (NEGATIVE) Urine Nitrite (NEGATIVE) Urine Bilirubin (NEGATIVE) Urine Urobilinogen (NORMAL) E.U./dL Ur Leukocyte Esterase (NEGATIVE) Urine RBC (0-5) /HPF Urine WBC (0-3) /HPF Ur Squamous Epith Cells (<= Few) Urine Bacteria (None Seen) /HPF Ur Microscopic Review Urine Culture Comments Nasal Screen MRSA (PCR) (NEGATIVE) Serum Ketones (NEGATIVE) 03/20/23 03/20/23 03/20/23 Range/Units 04:27 04:27 04:27 WBC (4.8-10.8) x10^3/uL RBC (4.70-6.10) 10^6/uL Hgb (14.0-18.0) g/dL Hct (42.0-52.0) % MCV (80.0-94.0) fL MCH (27.0-31.0) pg MCHC (32.0-36.0) g/dL RDW (12.0-15.0) % Plt Count (130-450) 10^3/uL MPV (7.4-11.4) fL Neut # (Auto) Lymph # (Auto) [place] # (Auto) Eos # (Auto) Baso # (Auto) Absolute Nucleated RBC Total Counted Band Neuts % (Manual) (0 - 10) % Abnorm Lymph % (Manual) % Nucleated RBC % Neutrophils # (Manual) (1.5-6.6) 10^3/uL Lymphocytes # (Manual) (1.5-3.5) 10^3/uL Monocytes # (Manual) (0.0-1.0) 10^3/uL Eosinophils # (Manual) (0-0.7) 10^3/uL Basophils # (Manual) (0-0.1) 10^3/uL Differential Comment Platelet Estimate (NORMAL) RBC Morph Micro Appear (NORMAL) VBG pH (7.31-7.41) Ionized Calcium (1.15-1.33) mmol/L Sodium (135-145) mmol/L Potassium (3.5-4.5) mmol/L Chloride (101-111) mmol/L Carbon Dioxide (21-32) mmol/L Anion Gap (6-13) BUN (6-20) mg/dL Creatinine (0.6-1.3) mg/dL Estimated GFR (MDRD) (>89) Glucose (74-104) mg/dL POC Whole Bld Glucose (70 - 100) mg/dL Estimat Average Glucose 252 H (70-100) mg/dL Hemoglobin A1c % 10.4 H (4.27-6.07) % Calcium (8.5-10.3) mg/dL Phosphorus 2.4 L (2.5-5.0) mg/dL Magnesium 1.6 L (1.7-2.3) mg/dL Urine Color Urine Clarity (CLEAR) Urine pH (5.0-7.5) PH Ur Specific [place] (1.002-1.030) Urine Protein (NEGATIVE) mg/dL Urine Glucose (UA) (NEGATIVE) mg/dL Urine Ketones (NEGATIVE) mg/dL Urine Occult Blood (NEGATIVE) Urine Nitrite (NEGATIVE) Urine Bilirubin (NEGATIVE) Urine Urobilinogen (NORMAL) E.U./dL Ur Leukocyte Esterase (NEGATIVE) Urine RBC (0-5) /HPF Urine WBC (0-3) /HPF Ur Squamous Epith Cells (<= Few) Urine Bacteria (None Seen) /HPF Ur Microscopic Review Urine Culture Comments Nasal Screen MRSA (PCR) (NEGATIVE) Serum Ketones SMALL H (NEGATIVE) 03/20/23 03/20/23 03/20/23 Range/Units 04:27 04:27 04:00 WBC 25.5 H (4.8-10.8) x10^3/uL RBC 5.43 (4.70-6.10) 10^6/uL Hgb 15.3 (14.0-18.0) g/dL Hct 45.3 (42.0-52.0) % MCV 83.4 (80.0-94.0) fL MCH 28.2 (27.0-31.0) pg MCHC 33.8 (32.0-36.0) g/dL RDW 15.6 H (12.0-15.0) % Plt Count 241 (130-450) 10^3/uL MPV 9.6 (7.4-11.4) fL Neut # (Auto) Not Reportable Lymph # (Auto) Not Reportable [place] # (Auto) Not Reportable Eos # (Auto) Not Reportable Baso # (Auto) Not Reportable Absolute Nucleated RBC Not Reportable Total Counted 100 Band Neuts % (Manual) 9 (0 - 10) % Abnorm Lymph % (Manual) 0 % Nucleated RBC % Not Reportable Neutrophils # (Manual) 20.4 H (1.5-6.6) 10^3/uL Lymphocytes # (Manual) 2.6 (1.5-3.5) 10^3/uL Monocytes # (Manual) 2.6 H (0.0-1.0) 10^3/uL Eosinophils # (Manual) 0.0 (0-0.7) 10^3/uL Basophils # (Manual) 0.0 (0-0.1) 10^3/uL Differential Comment MANUAL DIFFERENTIAL Platelet Estimate NORMAL (130-450,000) (NORMAL) RBC Morph Micro Appear NORMAL APPEARANCE (NORMAL) VBG pH (7.31-7.41) Ionized Calcium (1.15-1.33) mmol/L Sodium 138 (135-145) mmol/L Potassium 3.6 (3.5-4.5) mmol/L Chloride 104 (101-111) mmol/L Carbon Dioxide 26 (21-32) mmol/L Anion Gap 8.0 (6-13) BUN 18 (6-20) mg/dL Creatinine 0.9 (0.6-1.3) mg/dL Estimated GFR (MDRD) 84 L (>89) Glucose 115 H (74-104) mg/dL POC Whole Bld Glucose 171 H (70 - 100) mg/dL Estimat Average Glucose (70-100) mg/dL Hemoglobin A1c % (4.27-6.07) % Calcium 9.7 (8.5-10.3) mg/dL Phosphorus (2.5-5.0) mg/dL Magnesium (1.7-2.3) mg/dL Urine Color Urine Clarity (CLEAR) Urine pH (5.0-7.5) PH Ur Specific [place] (1.002-1.030) Urine Protein (NEGATIVE) mg/dL Urine Glucose (UA) (NEGATIVE) mg/dL Urine Ketones (NEGATIVE) mg/dL Urine Occult Blood (NEGATIVE) Urine Nitrite (NEGATIVE) Urine Bilirubin (NEGATIVE) Urine Urobilinogen (NORMAL) E.U./dL Ur Leukocyte Esterase (NEGATIVE) Urine RBC (0-5) /HPF Urine WBC (0-3) /HPF Ur Squamous Epith Cells (<= Few) Urine Bacteria (None Seen) /HPF Ur Microscopic Review Urine Culture Comments Nasal Screen MRSA (PCR) (NEGATIVE) Serum Ketones (NEGATIVE) 03/20/23 03/20/23 03/20/23 Range/Units 02:55 01:57 01:02 WBC (4.8-10.8) x10^3/uL RBC (4.70-6.10) 10^6/uL Hgb (14.0-18.0) g/dL Hct (42.0-52.0) % MCV (80.0-94.0) fL MCH (27.0-31.0) pg MCHC (32.0-36.0) g/dL RDW (12.0-15.0) % Plt Count (130-450) 10^3/uL MPV (7.4-11.4) fL Neut # (Auto) Lymph # (Auto) [place] # (Auto) Eos # (Auto) Baso # (Auto) Absolute Nucleated RBC Total Counted Band Neuts % (Manual) (0 - 10) % Abnorm Lymph % (Manual) % Nucleated RBC % Neutrophils # (Manual) (1.5-6.6) 10^3/uL Lymphocytes # (Manual) (1.5-3.5) 10^3/uL Monocytes # (Manual) (0.0-1.0) 10^3/uL Eosinophils # (Manual) (0-0.7) 10^3/uL Basophils # (Manual) (0-0.1) 10^3/uL Differential Comment Platelet Estimate (NORMAL) RBC Morph Micro Appear (NORMAL) VBG pH (7.31-7.41) Ionized Calcium (1.15-1.33) mmol/L Sodium (135-145) mmol/L Potassium (3.5-4.5) mmol/L Chloride (101-111) mmol/L Carbon Dioxide (21-32) mmol/L Anion Gap (6-13) BUN (6-20) mg/dL Creatinine (0.6-1.3) mg/dL Estimated GFR (MDRD) (>89) Glucose (74-104) mg/dL POC Whole Bld Glucose 181 H 139 H 150 H (70 - 100) mg/dL Estimat Average Glucose (70-100) mg/dL Hemoglobin A1c % (4.27-6.07) % Calcium (8.5-10.3) mg/dL Phosphorus (2.5-5.0) mg/dL Magnesium (1.7-2.3) mg/dL Urine Color Urine Clarity (CLEAR) Urine pH (5.0-7.5) PH Ur Specific [place] (1.002-1.030) Urine Protein (NEGATIVE) mg/dL Urine Glucose (UA) (NEGATIVE) mg/dL Urine Ketones (NEGATIVE) mg/dL Urine Occult Blood (NEGATIVE) Urine Nitrite (NEGATIVE) Urine Bilirubin (NEGATIVE) Urine Urobilinogen (NORMAL) E.U./dL Ur Leukocyte Esterase (NEGATIVE) Urine RBC (0-5) /HPF Urine WBC (0-3) /HPF Ur Squamous Epith Cells (<= Few) Urine Bacteria (None Seen) /HPF Ur Microscopic Review Urine Culture Comments Nasal Screen MRSA (PCR) (NEGATIVE) Serum Ketones (NEGATIVE) 03/19/23 03/19/23 03/19/23 Range/Units 23:58 23:40 23:01 WBC (4.8-10.8) x10^3/uL RBC (4.70-6.10) 10^6/uL Hgb (14.0-18.0) g/dL Hct (42.0-52.0) % MCV (80.0-94.0) fL MCH (27.0-31.0) pg MCHC (32.0-36.0) g/dL RDW (12.0-15.0) % Plt Count (130-450) 10^3/uL MPV (7.4-11.4) fL Neut # (Auto) Lymph # (Auto) [place] # (Auto) Eos # (Auto) Baso # (Auto) Absolute Nucleated RBC Total Counted Band Neuts % (Manual) (0 - 10) % Abnorm Lymph % (Manual) % Nucleated RBC % Neutrophils # (Manual) (1.5-6.6) 10^3/uL Lymphocytes # (Manual) (1.5-3.5) 10^3/uL Monocytes # (Manual) (0.0-1.0) 10^3/uL Eosinophils # (Manual) (0-0.7) 10^3/uL Basophils # (Manual) (0-0.1) 10^3/uL Differential Comment Platelet Estimate (NORMAL) RBC Morph Micro Appear (NORMAL) VBG pH (7.31-7.41) Ionized Calcium (1.15-1.33) mmol/L Sodium (135-145) mmol/L Potassium (3.5-4.5) mmol/L Chloride (101-111) mmol/L Carbon Dioxide (21-32) mmol/L Anion Gap (6-13) BUN (6-20) mg/dL Creatinine (0.6-1.3) mg/dL Estimated GFR (MDRD) (>89) Glucose (74-104) mg/dL POC Whole Bld Glucose 144 H 202 H (70 - 100) mg/dL Estimat Average Glucose (70-100) mg/dL Hemoglobin A1c % (4.27-6.07) % Calcium (8.5-10.3) mg/dL Phosphorus (2.5-5.0) mg/dL Magnesium (1.7-2.3) mg/dL Urine Color Urine Clarity (CLEAR) Urine pH (5.0-7.5) PH Ur Specific [place] (1.002-1.030) Urine Protein (NEGATIVE) mg/dL Urine Glucose (UA) (NEGATIVE) mg/dL Urine Ketones (NEGATIVE) mg/dL Urine Occult Blood (NEGATIVE) Urine Nitrite (NEGATIVE) Urine Bilirubin (NEGATIVE) Urine Urobilinogen (NORMAL) E.U./dL Ur Leukocyte Esterase (NEGATIVE) Urine RBC (0-5) /HPF Urine WBC (0-3) /HPF Ur Squamous Epith Cells (<= Few) Urine Bacteria (None Seen) /HPF Ur Microscopic Review Urine Culture Comments Nasal Screen MRSA (PCR) (NEGATIVE) Serum Ketones SMALL H (NEGATIVE) 03/19/23 03/19/23 03/19/23 Range/Units 22:32 22:20 21:57 WBC (4.8-10.8) x10^3/uL RBC (4.70-6.10) 10^6/uL Hgb (14.0-18.0) g/dL Hct (42.0-52.0) % MCV (80.0-94.0) fL MCH (27.0-31.0) pg MCHC (32.0-36.0) g/dL RDW (12.0-15.0) % Plt Count (130-450) 10^3/uL MPV (7.4-11.4) fL Neut # (Auto) Lymph # (Auto) [place] # (Auto) Eos # (Auto) Baso # (Auto) Absolute Nucleated RBC Total Counted Band Neuts % (Manual) (0 - 10) % Abnorm Lymph % (Manual) % Nucleated RBC % Neutrophils # (Manual) (1.5-6.6) 10^3/uL Lymphocytes # (Manual) (1.5-3.5) 10^3/uL Monocytes # (Manual) (0.0-1.0) 10^3/uL Eosinophils # (Manual) (0-0.7) 10^3/uL Basophils # (Manual) (0-0.1) 10^3/uL Differential Comment Platelet Estimate (NORMAL) RBC Morph Micro Appear (NORMAL) VBG pH (7.31-7.41) Ionized Calcium (1.15-1.33) mmol/L Sodium (135-145) mmol/L Potassium (3.5-4.5) mmol/L Chloride (101-111) mmol/L Carbon Dioxide (21-32) mmol/L Anion Gap (6-13) BUN (6-20) mg/dL Creatinine (0.6-1.3) mg/dL Estimated GFR (MDRD) (>89) Glucose (74-104) mg/dL POC Whole Bld Glucose 121 H 103 H (70 - 100) mg/dL Estimat Average Glucose (70-100) mg/dL Hemoglobin A1c % (4.27-6.07) % Calcium (8.5-10.3) mg/dL Phosphorus (2.5-5.0) mg/dL Magnesium (1.7-2.3) mg/dL Urine Color YELLOW Urine Clarity CLEAR (CLEAR) Urine pH 5.5 (5.0-7.5) PH Ur Specific [place] >=1.030 H (1.002-1.030) Urine Protein 100 H (NEGATIVE) mg/dL Urine Glucose (UA) 500 H (NEGATIVE) mg/dL Urine Ketones >=80 H (NEGATIVE) mg/dL Urine Occult Blood MODERATE H (NEGATIVE) Urine Nitrite NEGATIVE (NEGATIVE) Urine Bilirubin NEGATIVE (NEGATIVE) Urine Urobilinogen 0.2 (NORMAL) (NORMAL) E.U./dL Ur Leukocyte Esterase NEGATIVE (NEGATIVE) Urine RBC 6-10 H (0-5) /HPF Urine WBC 0-3 (0-3) /HPF Ur Squamous Epith Cells NONE SEEN (<= Few) Urine Bacteria None Seen (None Seen) /HPF Ur Microscopic Review INDICATED Urine Culture Comments NOT INDICATED Nasal Screen MRSA (PCR) (NEGATIVE) Serum Ketones (NEGATIVE) 03/19/23 03/19/23 03/19/23 Range/Units 21:42 21:42 21:42 WBC (4.8-10.8) x10^3/uL RBC (4.70-6.10) 10^6/uL Hgb (14.0-18.0) g/dL Hct (42.0-52.0) % MCV (80.0-94.0) fL MCH (27.0-31.0) pg MCHC (32.0-36.0) g/dL RDW (12.0-15.0) % Plt Count (130-450) 10^3/uL MPV (7.4-11.4) fL Neut # (Auto) Lymph # (Auto) [place] # (Auto) Eos # (Auto) Baso # (Auto) Absolute Nucleated RBC Total Counted Band Neuts % (Manual) (0 - 10) % Abnorm Lymph % (Manual) % Nucleated RBC % Neutrophils # (Manual) (1.5-6.6) 10^3/uL Lymphocytes # (Manual) (1.5-3.5) 10^3/uL Monocytes # (Manual) (0.0-1.0) 10^3/uL Eosinophils # (Manual) (0-0.7) 10^3/uL Basophils # (Manual) (0-0.1) 10^3/uL Differential Comment Platelet Estimate (NORMAL) RBC Morph Micro Appear (NORMAL) VBG pH 7.479 H (7.31-7.41) Ionized Calcium 1.21 (1.15-1.33) mmol/L Sodium (135-145) mmol/L Potassium 3.8 (3.5-4.5) mmol/L Chloride (101-111) mmol/L Carbon Dioxide (21-32) mmol/L Anion Gap (6-13) BUN (6-20) mg/dL Creatinine (0.6-1.3) mg/dL Estimated GFR (MDRD) (>89) Glucose (74-104) mg/dL POC Whole Bld Glucose (70 - 100) mg/dL Estimat Average Glucose (70-100) mg/dL Hemoglobin A1c % (4.27-6.07) % Calcium (8.5-10.3) mg/dL Phosphorus 3.4 (2.5-5.0) mg/dL Magnesium 1.9 (1.7-2.3) mg/dL Urine Color Urine Clarity (CLEAR) Urine pH (5.0-7.5) PH Ur Specific [place] (1.002-1.030) Urine Protein (NEGATIVE) mg/dL Urine Glucose (UA) (NEGATIVE) mg/dL Urine Ketones (NEGATIVE) mg/dL Urine Occult Blood (NEGATIVE) Urine Nitrite (NEGATIVE) Urine Bilirubin (NEGATIVE) Urine Urobilinogen (NORMAL) E.U./dL Ur Leukocyte Esterase (NEGATIVE) Urine RBC (0-5) /HPF Urine WBC (0-3) /HPF Ur Squamous Epith Cells (<= Few) Urine Bacteria (None Seen) /HPF Ur Microscopic Review Urine Culture Comments Nasal Screen MRSA (PCR) (NEGATIVE) Serum Ketones (NEGATIVE) 03/19/23 03/19/23 03/19/23 Range/Units 21:42 20:55 19:58 WBC (4.8-10.8) x10^3/uL RBC (4.70-6.10) 10^6/uL Hgb (14.0-18.0) g/dL Hct (42.0-52.0) % MCV (80.0-94.0) fL MCH (27.0-31.0) pg MCHC (32.0-36.0) g/dL RDW (12.0-15.0) % Plt Count (130-450) 10^3/uL MPV (7.4-11.4) fL Neut # (Auto) Lymph # (Auto) [place] # (Auto) Eos # (Auto) Baso # (Auto) Absolute Nucleated RBC Total Counted Band Neuts % (Manual) (0 - 10) % Abnorm Lymph % (Manual) % Nucleated RBC % Neutrophils # (Manual) (1.5-6.6) 10^3/uL Lymphocytes # (Manual) (1.5-3.5) 10^3/uL Monocytes # (Manual) (0.0-1.0) 10^3/uL Eosinophils # (Manual) (0-0.7) 10^3/uL Basophils # (Manual) (0-0.1) 10^3/uL Differential Comment Platelet Estimate (NORMAL) RBC Morph Micro Appear (NORMAL) VBG pH (7.31-7.41) Ionized Calcium (1.15-1.33) mmol/L Sodium (135-145) mmol/L Potassium (3.5-4.5) mmol/L Chloride (101-111) mmol/L Carbon Dioxide (21-32) mmol/L Anion Gap (6-13) BUN (6-20) mg/dL Creatinine (0.6-1.3) mg/dL Estimated GFR (MDRD) (>89) Glucose (74-104) mg/dL POC Whole Bld Glucose 136 H 132 H (70 - 100) mg/dL Estimat Average Glucose (70-100) mg/dL Hemoglobin A1c % (4.27-6.07) % Calcium (8.5-10.3) mg/dL Phosphorus (2.5-5.0) mg/dL Magnesium (1.7-2.3) mg/dL Urine Color Urine Clarity (CLEAR) Urine pH (5.0-7.5) PH Ur Specific [place] (1.002-1.030) Urine Protein (NEGATIVE) mg/dL Urine Glucose (UA) (NEGATIVE) mg/dL Urine Ketones (NEGATIVE) mg/dL Urine Occult Blood (NEGATIVE) Urine Nitrite (NEGATIVE) Urine Bilirubin (NEGATIVE) Urine Urobilinogen (NORMAL) E.U./dL Ur Leukocyte Esterase (NEGATIVE) Urine RBC (0-5) /HPF Urine WBC (0-3) /HPF Ur Squamous Epith Cells (<= Few) Urine Bacteria (None Seen) /HPF Ur Microscopic Review Urine Culture Comments Nasal Screen MRSA (PCR) (NEGATIVE) Serum Ketones SMALL H (NEGATIVE) 03/19/23 03/19/23 03/19/23 Range/Units 19:30 19:10 18:10 WBC (4.8-10.8) x10^3/uL RBC (4.70-6.10) 10^6/uL Hgb (14.0-18.0) g/dL Hct (42.0-52.0) % MCV (80.0-94.0) fL MCH (27.0-31.0) pg MCHC (32.0-36.0) g/dL RDW (12.0-15.0) % Plt Count (130-450) 10^3/uL MPV (7.4-11.4) fL Neut # (Auto) Lymph # (Auto) [place] # (Auto) Eos # (Auto) Baso # (Auto) Absolute Nucleated RBC Total Counted Band Neuts % (Manual) (0 - 10) % Abnorm Lymph % (Manual) % Nucleated RBC % Neutrophils # (Manual) (1.5-6.6) 10^3/uL Lymphocytes # (Manual) (1.5-3.5) 10^3/uL Monocytes # (Manual) (0.0-1.0) 10^3/uL Eosinophils # (Manual) (0-0.7) 10^3/uL Basophils # (Manual) (0-0.1) 10^3/uL Differential Comment Platelet Estimate (NORMAL) RBC Morph Micro Appear (NORMAL) VBG pH (7.31-7.41) Ionized Calcium (1.15-1.33) mmol/L Sodium (135-145) mmol/L Potassium (3.5-4.5) mmol/L Chloride (101-111) mmol/L Carbon Dioxide (21-32) mmol/L Anion Gap (6-13) BUN (6-20) mg/dL Creatinine (0.6-1.3) mg/dL Estimated GFR (MDRD) (>89) Glucose (74-104) mg/dL POC Whole Bld Glucose 153 H 169 H (70 - 100) mg/dL Estimat Average Glucose (70-100) mg/dL Hemoglobin A1c % (4.27-6.07) % Calcium (8.5-10.3) mg/dL Phosphorus (2.5-5.0) mg/dL Magnesium (1.7-2.3) mg/dL Urine Color Urine Clarity (CLEAR) Urine pH (5.0-7.5) PH Ur Specific [place] (1.002-1.030) Urine Protein (NEGATIVE) mg/dL Urine Glucose (UA) (NEGATIVE) mg/dL Urine Ketones (NEGATIVE) mg/dL Urine Occult Blood (NEGATIVE) Urine Nitrite (NEGATIVE) Urine Bilirubin (NEGATIVE) Urine Urobilinogen (NORMAL) E.U./dL Ur Leukocyte Esterase (NEGATIVE) Urine RBC (0-5) /HPF Urine WBC (0-3) /HPF Ur Squamous Epith Cells (<= Few) Urine Bacteria (None Seen) /HPF Ur Microscopic Review Urine Culture Comments Nasal Screen MRSA (PCR) (NEGATIVE) Serum Ketones SMALL H (NEGATIVE) 03/19/23 03/19/23 03/19/23 Range/Units 17:22 17:01 15:26 WBC (4.8-10.8) x10^3/uL RBC (4.70-6.10) 10^6/uL Hgb (14.0-18.0) g/dL Hct (42.0-52.0) % MCV (80.0-94.0) fL MCH (27.0-31.0) pg MCHC (32.0-36.0) g/dL RDW (12.0-15.0) % Plt Count (130-450) 10^3/uL MPV (7.4-11.4) fL Neut # (Auto) Lymph # (Auto) [place] # (Auto) Eos # (Auto) Baso # (Auto) Absolute Nucleated RBC Total Counted Band Neuts % (Manual) (0 - 10) % Abnorm Lymph % (Manual) % Nucleated RBC % Neutrophils # (Manual) (1.5-6.6) 10^3/uL Lymphocytes # (Manual) (1.5-3.5) 10^3/uL Monocytes # (Manual) (0.0-1.0) 10^3/uL Eosinophils # (Manual) (0-0.7) 10^3/uL Basophils # (Manual) (0-0.1) 10^3/uL Differential Comment Platelet Estimate (NORMAL) RBC Morph Micro Appear (NORMAL) VBG pH (7.31-7.41) Ionized Calcium (1.15-1.33) mmol/L Sodium 139 (135-145) mmol/L Potassium 3.6 (3.5-4.5) mmol/L Chloride 102 (101-111) mmol/L Carbon Dioxide 25 (21-32) mmol/L Anion Gap 12.0 (6-13) BUN 24 H (6-20) mg/dL Creatinine 1.0 (0.6-1.3) mg/dL Estimated GFR (MDRD) 75 L (>89) Glucose 156 H (74-104) mg/dL POC Whole Bld Glucose 195 H (70 - 100) mg/dL Estimat Average Glucose (70-100) mg/dL Hemoglobin A1c % (4.27-6.07) % Calcium 11.2 H (8.5-10.3) mg/dL Phosphorus 4.1 (2.5-5.0) mg/dL Magnesium 1.6 L (1.7-2.3) mg/dL Urine Color Urine Clarity (CLEAR) Urine pH (5.0-7.5) PH Ur Specific [place] (1.002-1.030) Urine Protein (NEGATIVE) mg/dL Urine Glucose (UA) (NEGATIVE) mg/dL Urine Ketones (NEGATIVE) mg/dL Urine Occult Blood (NEGATIVE) Urine Nitrite (NEGATIVE) Urine Bilirubin (NEGATIVE) Urine Urobilinogen (NORMAL) E.U./dL Ur Leukocyte Esterase (NEGATIVE) Urine RBC (0-5) /HPF Urine WBC (0-3) /HPF Ur Squamous Epith Cells (<= Few) Urine Bacteria (None Seen) /HPF Ur Microscopic Review Urine Culture Comments Nasal Screen MRSA (PCR) (NEGATIVE) Serum Ketones SMALL H (NEGATIVE) 03/19/23 Range/Units 15:00 WBC (4.8-10.8) x10^3/uL RBC (4.70-6.10) 10^6/uL Hgb (14.0-18.0) g/dL Hct (42.0-52.0) % MCV (80.0-94.0) fL MCH (27.0-31.0) pg MCHC (32.0-36.0) g/dL RDW (12.0-15.0) % Plt Count (130-450) 10^3/uL MPV (7.4-11.4) fL Neut # (Auto) Lymph # (Auto) [place] # (Auto) Eos # (Auto) Baso # (Auto) Absolute Nucleated RBC Total Counted Band Neuts % (Manual) (0 - 10) % Abnorm Lymph % (Manual) % Nucleated RBC % Neutrophils # (Manual) (1.5-6.6) 10^3/uL Lymphocytes # (Manual) (1.5-3.5) 10^3/uL Monocytes # (Manual) (0.0-1.0) 10^3/uL Eosinophils # (Manual) (0-0.7) 10^3/uL Basophils # (Manual) (0-0.1) 10^3/uL Differential Comment Platelet Estimate (NORMAL) RBC Morph Micro Appear (NORMAL) VBG pH (7.31-7.41) Ionized Calcium (1.15-1.33) mmol/L Sodium (135-145) mmol/L Potassium (3.5-4.5) mmol/L Chloride (101-111) mmol/L Carbon Dioxide (21-32) mmol/L Anion Gap (6-13) BUN (6-20) mg/dL Creatinine (0.6-1.3) mg/dL Estimated GFR (MDRD) (>89) Glucose (74-104) mg/dL POC Whole Bld Glucose (70 - 100) mg/dL Estimat Average Glucose (70-100) mg/dL Hemoglobin A1c % (4.27-6.07) % Calcium (8.5-10.3) mg/dL Phosphorus (2.5-5.0) mg/dL Magnesium (1.7-2.3) mg/dL Urine Color Urine Clarity (CLEAR) Urine pH (5.0-7.5) PH Ur Specific [place] (1.002-1.030) Urine Protein (NEGATIVE) mg/dL Urine Glucose (UA) (NEGATIVE) mg/dL Urine Ketones (NEGATIVE) mg/dL Urine Occult Blood (NEGATIVE) Urine Nitrite (NEGATIVE) Urine Bilirubin (NEGATIVE) Urine Urobilinogen (NORMAL) E.U./dL Ur Leukocyte Esterase (NEGATIVE) Urine RBC (0-5) /HPF Urine WBC (0-3) /HPF Ur Squamous Epith Cells (<= Few) Urine Bacteria (None Seen) /HPF Ur Microscopic Review Urine Culture Comments Nasal Screen MRSA (PCR) NEGATIVE (NEGATIVE) Serum Ketones (NEGATIVE) Assessment/Plan - Problem List (1) Ketosis due to diabetes Impression: This is similar to his admission in 2020 when he had positive serum ketones but a normal serum pH, therefore he is not acidotic. He is hyperglycemic. The cause for this is not entirely clear. The only symptoms that were abnormal re cently was nausea and vomiting for 2 days. No other areas on exam seem to be a focus for an infection: CXR and U/A are unremarkable. Plan: Continue DKA protocol in the ICU. Insulin drip and IV NS Follow serum ketones every 2 hours. IV insulin drip will continue until the serum ketones are negative. (2) Hyperglycemia due to diabetes mellitus Conclusion/Plan: His 2 days of nausea vomiting could have been his gastroparesis or the beginning of this diabetic ketosis. Plan: As above in #1. (3) Noncompliance with medication regimen Conclusion/Plan: Today I spoke to the by phone to get history plus to update her. The told me that the patient eats starches and sweets every day at a restaurant for breakfast with his buddies. When he shops he brings home apply and eats half of it in 1 sitting. He has always been like this, he says that he "does not care" and will not follow directions Plan: When he is awake, I will discuss how serious his noncompliance is and possibly request a social work consult fo possible depression (4) Altered mental status Conclusion/Plan: This could be all from diabetic ketosis plus hyperglycemia. Looking for an infection has not revealed an obvious source. He did not have abdominal imaging however. The daughter reported to the ER doctor that there was some "tightening of his muscles". His head CT was unremarkable. No LP was done in the ER however. This is a more prolonged lethargy/somnolence then somebody would have after a seizure, since it has been about 8 hours since sxymptoms started this morning, therefore I doubt this was a postictal status. Plan: Continue neurochecks every 4 hours There is too low of a suspicion for meningitis to order an LP Continue with aggressive DKA management. (5) PSVT Telemetry shows the patient is having episodes of atrial tachycardia at rates of 150. This could be atrial flutter with 2:1 block. His blood pressure is stable with this and he does not appear to be in any distress (He is still mostly somnolent). Plan: We will check his TSH We will check to troponins Medication list reconciled and will restart any heart rate-slowing meds Would like to obtain an Echo however for we have no infectious disease technician here today or for the next 3 days (6) Leukocytosis Conclusion/Plan: IMPROVING w/out antibiotics This could be a severe demargination, stress response. The biggest concern is there is an infection somewhere but the focus is not immediately clear. Also, his lactic acid level is normal. His CT abdominal was unremarkable. Plan: Await empiric blood cultures There is too low of a suspicion for meningitis to order an LP Will continue with aggressive IV fluids and DKA management and not start empiric antibiotics. Follow CBC daily (7) Hypercalcemia Conclusion/Plan: RESOLVED He had a similar very high calcium of 14 the last time he was here with DKA. It was determined that he was taking excessive Tums. Plan: Follow his albumin and calcium daily Continue with aggressive IV fluids as part of the DKA protocol. When he awakens and can describe his usual habits will determine if he has excessive vitamin D or Tums or calcium supplement intake. Will check a serum PTH
[2023-03-20 16:50] LABS: PHOSPHORUS 2.4 mg/dL (2.5-5.0); POTASSIUM 3.8 mmol/L (3.5-4.5)
[2023-03-20] MEDS ORDERED: DEXTROSE 5%-0.9% NACL 1,000 ML IV SCH (16:58)
[2023-03-20] MEDS: INSULIN LISPRO 300 UNIT/3 ML PEN SUBQ SCH ×3 (17:20→21:07)
[2023-03-20] MEDS: DULoxetine 30 MG CAPSULE PO SCH (21:05)
[2023-03-20] MEDS: metFORMIN 500 MG TABLET PO SCH (21:05)
[2023-03-20] MEDS: GABAPENTIN 300 MG CAPSULE PO SCH (21:05)
[2023-03-20] MEDS: FAMOTIDINE 20 MG TABLET PO SCH (21:05)
[2023-03-20] MEDS: ATORVASTATIN 40 MG TABLET PO SCH (21:06)
[2023-03-20] MEDS: INSULIN GLARGINE-YFGN 300 UNIT/3 ML PEN SUBQ SCH (21:06)
[2023-03-21 05:04] LABS: BASOPHILS # (AUTO) 0.1 10^3/uL (0.0-0.1); BASOPHILS % (AUTO) 0.4 %; EOSINOPHILS % (AUTO) 0.1 %; HCT - HEMATOCRIT 41.2 % (42.0-52.0); HGB - HEMOGLOBIN 13.6 g/dL (14.0-18.0); LYMPHOCYTES # (AUTO) 1.5 10^3/uL (1.5-3.5); LYMPHOCYTES % (AUTO) 11.3 %; MEAN CORPUSCULAR HEMOGLOBIN 28.2 pg (27.0-31.0); MEAN CORPUSCULAR VOLUME 85.3 fL (80.0-94.0); MEAN PLATELET VOLUME 10.2 fL (7.4-11.4); MONOCYTES # (AUTO) 1.4 10^3/uL (0.0-1.0); MONOCYTES % (AUTO) 10.9 %; NEUTROPHILS % (AUTO) 76.7 %; PLT - PLATELET COUNT 178 10^3/uL (130-450); RED BLOOD COUNT 4.83 10^6/uL (4.70-6.10); RED CELL DISTRIBUTION WIDTH 15.3 % (12.0-15.0); WHITE BLOOD COUNT 13.1 x10^3/uL (4.8-10.8)
[2023-03-21] MEDS: SODIUM CHLORIDE FLUSH 0.9% 10 ML SYRINGE IVP SCH ×4 (05:14→21:17)
[2023-03-21 05:16] LABS: MAGNESIUM 1.6 mg/dL (1.7-2.3); PHOSPHORUS 1.9 mg/dL (2.5-5.0)
[2023-03-21 05:18] LABS: CALCIUM 8.4 mg/dL (8.5-10.3); CREATININE 0.6 mg/dL (0.6-1.3); POTASSIUM 3.7 mmol/L (3.5-4.5)
[2023-03-21] MEDS ORDERED: MAGNESIUM SULFATE 2 GRAM 2 GM/50 ML BAG IV ONE (05:27)
[2023-03-21 05:40] LABS: CALCIUM, IONIZED 1.12 mmol/L (1.15-1.33); VBG PH 7.417 (7.31-7.41)
[2023-03-21] MEDS ORDERED: POTASSIUM PHOSPHATE 15 MMOL in SODIUM CHLORIDE 0.9% 250 ML IV ONE (08:00)
[2023-03-21] MEDS: metFORMIN 500 MG TABLET PO SCH ×2 (08:55→17:35)
[2023-03-21] MEDS: FAMOTIDINE 20 MG TABLET PO SCH ×2 (08:55→21:15)
[2023-03-21] MEDS: GABAPENTIN 300 MG CAPSULE PO SCH ×2 (08:55→21:13)
[2023-03-21] MEDS: ASPIRIN EC 81 MG TABLET PO SCH (08:55)
[2023-03-21] MEDS: DULoxetine 30 MG CAPSULE PO SCH ×2 (08:55→21:13)
[2023-03-21] MEDS: METOPROLOL TARTRATE 25 MG TABLET PO SCH ×2 (08:55→21:14)
[2023-03-21] MEDS: ENOXAPARIN 40 MG/0.4 ML SYRINGE SUBQ SCH (08:56)
[2023-03-21] MEDS: INSULIN GLARGINE-YFGN 300 UNIT/3 ML PEN SUBQ SCH ×2 (09:01→21:15)
[2023-03-21] MEDS: INSULIN LISPRO 300 UNIT/3 ML PEN SUBQ SCH ×7 (09:04→21:16)
--- NOTE | 2023-03-21 15:46 | PROVIDER PROGRESS NOTE ---
Assessment/Plan - Problem List (1) Ketosis due to diabetes Assessment/Plan: This is similar to his admission in 2020 when he had positive serum ketones but a normal serum pH, therefore he is not acidotic. He is hyperglycemic. The cause for this is not entirely clear. The only symptoms that were abnormal recently was nausea and vomiting for 2 days. No other areas on exam seem to be a focus for an infection: CXR and U/A were unremarkable. When I got extra information from the by phone on day 2, she was not sure if he was taking his insulin. Today he is awake and I could talk to him and asked about any recent symptoms and he said he got weak, was vomiting a lot but he was taking his insulin. H owever, he admitted he hardly ever checks his sugar Plan: His serum ketones cleared yesterday afternoon, he was started on long-acting insulin and sliding scale insulin coverage yesterday evening. He will be moved out of the ICU today. I anticipate he will be discharging home tomorrow (2) Hyperglycemia due to diabetes mellitus Conclusion/Plan: His 2 days of nausea vomiting at home could have been from his gastroparesis or from cannibis hyper-emesis or due to the beginning of this diabetic ketosis. Plan: As above in #1. (3) Noncompliance with medication regimen Conclusion/Plan: I spoke to the by phone yesterday to get history plus to update her. The told me that the patient eats starches and sweets every day at a restaurant for breakfast with his buddies. When he shops he brings home a pie and eats half of it in 1 sitting. He has always been like this, and he has told her that he "does not care" and will not follow directions. Today he is awake and I could talk to him and asked about his diet compliance and Insulin compliance. He did admit that he eats alot of starches, and does not check his sugar carefully. Plan: He himself admitted that he needs to be more compliant with measuring his g lucose and I also promoted that he needs a lower starch diet (4) PSVT Telemetry showed the patient was having frequent episodes of atrial tachycardia at rates of 150. His TSH was normal A set of troponins was "flat", ruling out an ACS. Medication list reconciled showed he took Metoprolol at home. The Metoprolol was resumed yesterday and the Atrial tachycardias have resolved. Plan: Cont Metoprolol I would like to obtain an Echo however for we have no medical coding technician here today or for the next 2 days (5) Marijuana use Conclusion/Plan: I suspect that part of his 2 days of nausea and vomiting at home is from cannabis hyperemesis syndrome. I told him this today. He agreed that he needed to decrease his marijuana use (6) Leukocytosis Conclusion/Plan: RESOLVED without empiric antibx. Therefore this was demargination from stress of DKA. (7) Hypercalcemia Conclusion/Plan: RESOLVED with saline hydration. His serum PTH is normal. (8) Altered mental status Conclusion/Plan: RESOLVED as his DKA cleared - Current Meds Current Meds: Current Medications Generic Name Dose Route Start Last Admin Trade Name Nathanq PRN Reason Stop Dose Admin Aspirin 81 mg 03/20/23 09:00 03/21/23 08:55 Aspirin Ec 81 Mg Tablet PO 81 mg DAILY JASON Administration Atorvastatin Calcium 80 mg 03/20/23 21:00 03/20/23 21:06 Atorvastatin 40 Mg Tablet PO 80 mg QPM JASON Administration Duloxetine HCl 30 mg 03/20/23 21:00 03/21/23 08:55 Duloxetine 30 Mg Capsule PO 30 mg BID JASON Administration Enoxaparin Sodium 40 mg 03/20/23 09:00 03/21/23 08:56 Enoxaparin 40 Mg/0.4 Ml Syringe SUBQ 40 mg DAILY JASON Administration Famotidine 20 mg 03/20/23 21:00 03/21/23 08:55 Famotidine 20 Mg Tablet PO 20 mg BID JASON Administration Gabapentin 300 mg 03/20/23 21:00 03/21/23 08:55 Gabapentin 300 Mg Capsule PO 300 mg BID JASON Administration Insulin Glargine-yfgn 10 unit 03/20/23 21:00 03/21/23 09:01 Insulin Glargine-Yfgn 300 Unit/3 Ml Pen SUBQ 10 unit BID JASON Administration Insulin Human Lispro 5 unit 03/20/23 17:00 03/21/23 12:56 Insulin Lispro 300 Unit/3 Ml Pen SUBQ 5 unit TIDWM JASON Administration Protocol Insulin Human Lispro 1 - 5 unit 03/20/23 17:00 03/21/23 12:57 Insulin Lispro 300 Unit/3 Ml Pen SUBQ 3 unit 0800,1200,1700,2100 [facility] Administration Protocol Metformin HCl 1,000 mg 03/20/23 21:00 03/21/23 08:55 Metformin 500 Mg Tablet PO 1,000 mg BIDWM JASON Administration Metoprolol Tartrate 12.5 mg 03/21/23 09:00 03/21/23 08:55 Metoprolol Tartrate 25 Mg Tablet PO 12.5 mg BID JASON Administration Ondansetron HCl 4 mg 03/19/23 13:13 03/20/23 04:04 Ondansetron 4 Mg/2 Ml Vial IVP 4 mg Q6HR PRN Administration Nausea / Vomiting Prochlorperazine Edisylate 10 mg 03/20/23 09:26 03/20/23 17:13 Prochlorperazine 10 Mg/2 Ml Vial IVP 10 mg Q6HR PRN Administration Nausea / Vomiting Sodium Chloride 10 ml 03/19/23 17:00 03/21/23 09:13 Sodium Chloride Flush 0.9% 10 Ml Syringe IVP 10 ml 0100,0900,1700 [facility] Administration - Lab Result Fish Bone Diagrams: 03/21/23 04:27 03/21/23 04:27 - Additional Planning My Orders: My Active Orders 03/20/23 16:57 Blood Glucose Checks - Eating [RC] 0800,1200,1700,2100 03/20/23 17:00 Insulin Lispro [Humalog Kwikpen U-100] 1 - 5 unit SUBQ 0800,1200,1700,2100 Insulin Lispro [Humalog Kwikpen U-100] 5 unit SUBQ TIDWM 03/20/23 21:00 Atorvastatin [Lipitor] 80 mg PO QPM DULoxetine [Cymbalta] 30 mg PO BID Famotidine [Pepcid] 20 mg PO BID Gabapentin [Neurontin] 300 mg PO BID Insulin Glargine-Yfgn [Semglee] 10 unit SUBQ BID metFORMIN [Glucophage] 1,000 mg PO BIDWM 03/21/23 Evaluate and Treat PT [PT] Routine 03/21/23 09:00 Metoprolol Tartrate [Lopressor] 12.5 mg PO BID 03/21/23 10:02 Telemetry- [RC] Q4HR 03/22/23 05:00 CALCIUM, IONIZED ([facility]) [BG] DAILYLAB MAGNESIUM [CHEM] DAILYLAB PHOSPHORUS [CHEM] DAILYLAB PTH-RP (PTH-RELATED PEPTIDE) [REFLAB] DAILYLAB THYROID STIMULATING HORMONE [CHEM] DAILYLAB TROPONIN I HIGH SENSITIVITY [CHEM] DAILYLAB Subjective - Subjective Patient Reports: Feeling Better, Resting Comfortably, No Complaints Objective Vital Signs: Vital Signs - 24 hr 03/20/23 03/20/23 03/20/23 17:00 18:50 19:00 Temperature 36.9 C Heart Rate [ 91 101 H Monitoring electrodes] Heart Rate [ Sitting] Heart Rate [ Standing] Respiratory 16 19 Rate Blood Pressure Blood Pressure 159/96 H 151/89 H [Right Brachial artery] Blood Pressure [Sitting] Blood Pressure [Standing] O2 Saturation 99 95 If not protocol 2 2 : Oxygen Flow, liters/minute 03/20/23 03/20/23 03/20/23 20:00 21:00 22:00 Temperature 37.8 C Heart Rate [ 93 90 89 Monitoring electrodes] Heart Rate [ Sitting] Heart Rate [ Standing] Respiratory 13 16 17 Rate Blood Pressure Blood Pressure 146/78 H 140/74 H 145/90 H [Right Brachial artery] Blood Pressure [Sitting] Blood Pressure [Standing] O2 Saturation 97 96 97 If not protocol : Oxygen Flow, liters/minute 03/20/23 03/21/23 03/21/23 23:00 00:00 01:00 Temperature 37.3 C Heart Rate [ 82 84 83 Monitoring electrodes] Heart Rate [ Sitting] Heart Rate [ Standing] Respiratory 16 13 17 Rate Blood Pressure Blood Pressure 116/72 142/80 H 142/81 H [Right Brachial artery] Blood Pressure [Sitting] Blood Pressure [Standing] O2 Saturation 96 94 95 If not protocol : Oxygen Flow, liters/minute 03/21/23 03/21/23 03/21/23 02:00 03:00 04:00 Temperature 36.9 C Heart Rate [ 82 83 85 Monitoring electrodes] Heart Rate [ Sitting] Heart Rate [ Standing] Respiratory 18 12 14 Rate Blood Pressure Blood Pressure 149/80 H 154/86 H 171/98 H [Right Brachial artery] Blood Pressure [Sitting] Blood Pressure [Standing] O2 Saturation 96 96 96 If not protocol : Oxygen Flow, liters/minute 03/21/23 03/21/23 03/21/23 05:00 06:00 07:00 Temperature Heart Rate [ 82 82 79 Monitoring electrodes] Heart Rate [ Sitting] Heart Rate [ Standing] Respiratory 14 16 15 Rate Blood Pressure Blood Pressure 161/93 H 158/91 H 160/96 H [Right Brachial artery] Blood Pressure [Sitting] Blood Pressure [Standing] O2 Saturation 95 97 96 If not protocol : Oxygen Flow, liters/minute 03/21/23 03/21/23 03/21/23 08:00 08:55 09:00 Temperature 36.9 C Heart Rate [ 76 130 H Monitoring electrodes] Heart Rate [ Sitting] Heart Rate [ Standing] Respiratory 12 16 Rate Blood Pressure 155/112 H Blood Pressure 156/73 H 145/97 H [Right Brachial artery] Blood Pressure [Sitting] Blood Pressure [Standing] O2 Saturation 99 99 If not protocol : Oxygen Flow, liters/minute 03/21/23 03/21/23 03/21/23 10:00 10:30 11:45 Temperature 36.9 C Heart Rate [ 121 H 122 H Monitoring electrodes] Heart Rate [ 121 H Sitting] Heart Rate [ 120 H Standing] Respiratory 14 18 Rate Blood Pressure Blood Pressure 148/101 H 155/106 H [Right Brachial artery] Blood Pressure 147/118 H [Sitting] Blood Pressure 144/107 H [Standing] O2 Saturation 98 98 If not protocol : Oxygen Flow, liters/minute Oxygen O2 Source Room air I&O (Last 24 Hrs): Intake and Output Totals x24h 03/19/23 03/20/23 03/21/23 23:59 23:59 23:59 Intake Total 3097.122 5454.735 2998 Output Total 1250 2650 1250 Balance 0610.502 3247.735 1748 General: Alert, Oriented x3 HEENT: Mucous membr. moist/pink Neck: Supple, No JVD Neuro: Alert, Non Focal Cardiovascular: Regular rate, No murmurs Respiratory: No respiratory distress, Breath sounds nml Abdomen: Normal bowel sounds, Soft, No tenderness Extremities: No clubbing, No edema, Other (All L toes amputated, R 4th toe amp utated, has several abraisions on both shins.) - Results Results: Laboratory Results WBC 13.1 x10^3/uL (4.8-10.8) H 03/21/23 04:27 RBC 4.83 10^6/uL (4.70-6.10) 03/21/23 04:27 Hgb 13.6 g/dL (14.0-18.0) L 03/21/23 04:27 Hct 41.2 % (42.0-52.0) L 03/21/23 04:27 MCV 85.3 fL (80.0-94.0) 03/21/23 04:27 MCH 28.2 pg (27.0-31.0) 03/21/23 04: MCHC 33.0 g/dL (32.0-36.0) 03/21/23 04:27 RDW 15.3 % (12.0-15.0) H 03/21/23 04:27 Plt Count 178 10^3/uL (130-450) 03/21/23 04:27 MPV 10.2 fL (7.4-11.4) 03/21/23 04:27 Neut # (Auto) 10.0 10^3/uL (1.5-6.6) H 03/21/23 04:27 Lymph # (Auto) 1.5 10^3/uL (1.5-3.5) 03/21/23 04:27 [place] # (Auto) 1.4 10^3/uL (0.0-1.0) H 03/21/23 04:27 Eos # (Auto) 0.0 10^3/uL (0.0-0.7) 03/21/23 04:27 Baso # (Auto) 0.1 10^3/uL (0.0-0.1) 03/21/23 04:27 Absolute Nucleated RBC 0.00 x10^3/uL 03/21/23 04:27 Total Counted 100 03/20/23 04:27 Band Neuts % (Manual) 9 % (0-10) 03/20/23 04:27 Abnorm Lymph % (Manual) 0 % 03/20/23 04:27 Nucleated RBC % 0.0 /100WBC 03/21/23 04:27 Neutrophils # (Manual) 20.4 10^3/uL (1.5-6.6) H 03/20/23 04:27 Lymphocytes # (Manual) 2.6 10^3/uL (1.5-3.5) 03/20/23 04:27 Monocytes # (Manual) 2.6 10^3/uL (0.0-1.0) H 03/20/23 04:27 Eosinophils # (Manual) 0.0 10^3/uL (0-0.7) 03/20/23 04:27 Basophils # (Manual) 0.0 10^3/uL (0-0.1) 03/20/23 04:27 Differential Comment MANUAL DIFFERENTIAL 03/20/23 04:27 Manual Slide Review Indicated 03/19/23 10:08 Platelet Estimate NORMAL (130-450,000) (NORMAL) 03/20/23 04:27 Platelet Morphology NORMAL APPEARANCE (NORMAL) 03/19/23 10:08 RBC Morph Micro Appear NORMAL APPEARANCE (NORMAL) 03/20/23 04:27 VBG pH 7.417 (7.31-7.41) H 03/21/23 04:27 VBG pCO2 22.8 mmHg (41-51) L 03/19/23 10:08 VBG pO2 68.6 mmHg (25-47) H 03/19/23 10:08 VBG HCO3 13.5 mmol/L (23-28) L 03/19/23 10:08 VBG Total CO2 14.2 mmol/L (24-29) L 03/19/23 10:08 VBG O2 Saturation 93.8 % (60-80) H 03/19/23 10:08 VBG Base Excess -8.9 mmol/L (-2 - +2) L 03/19/23 10:08 Ionized Calcium 1.12 mmol/L (1.15-1.33) L 03/21/23 04:27 Sodium 136 mmol/L (135-145) 03/21/23 04:27 Potassium 3.7 mmol/L (3.5-4.5) 03/21/23 04:27 Chloride 106 mmol/L (101-111) 03/21/23 04:27 Carbon Dioxide 25 mmol/L (21-32) 03/21/23 04:27 Anion Gap 5.0 (6-13) L 03/21/23 04:27 BUN 12 mg/dL (6-20) 03/21/23 04:27 Creatinine 0.6 mg/dL (0.6-1.3) 03/21/23 04:27 Estimated GFR (MDRD) 134 (>89) 03/21/23 04:27 Glucose 209 mg/dL (74-104) H 03/21/23 04:27 POC Whole Bld Glucose 249 mg/dL (70 - 100) H 03/21/23 11:42 Estimat Average Glucose 252 mg/dL (70-100) H 03/20/23 04:27 Hemoglobin A1c % 10.4 % (4.27-6.07) H 03/20/23 04:27 Lactic Acid 1.3 mmol/L (0.5-2.2) 03/19/23 15:26 Calcium 8.4 mg/dL (8.5-10.3) L 03/21/23 04:27 Phosphorus 1.9 mg/dL (2.5-5.0) L 03/21/23 04:27 Magnesium 1.9 mg/dL (1.7-2.3) 03/21/23 09:11 Total Bilirubin 0.7 mg/dL (0.2-1.0) 03/19/23 10:08 AST 16 IU/L (10-42) 03/19/23 10:08 ALT 21 IU/L (10-60) 03/19/23 10:08 Alkaline Phosphatase 111 IU/L (42-121) 03/19/23 10:08 Troponin I High Sens 21.1 ng/L (2.3-19.7) H* 03/20/23 19:20 Total Protein 7.6 g/dL (6.4-8.9) 03/19/23 10:08 Albumin 4.4 g/dL (3.2-5.5) 03/19/23 10:08 Globulin 3.2 g/dL (2.1-4.2) 03/19/23 10:08 Albumin/Globulin Ratio 1.4 (1.0-2.2) 03/19/23 10:08 Lipase 21 U/L (11-82) 03/19/23 10:08 Urine Color YELLOW 03/19/23 22:20 Urine Clarity CLEAR (CLEAR) 03/19/23 22:20 Urine pH 5.5 PH (5.0-7.5) 03/19/23 22:20 Ur Specific [place] >=1.030 (1.002-1.030) H 03/19/23 22:20 Urine Protein 100 mg/dL (NEGATIVE) H 03/19/23 22:20 Urine Glucose (UA) 500 mg/dL (NEGATIVE) H 03/19/23 22:20 Urine Ketones >=80 mg/dL (NEGATIVE) H 03/19/23 22:20 Urine Occult Blood MODERATE (NEGATIVE) H 03/19/23 22:20 Urine Nitrite NEGATIVE (NEGATIVE) 03/19/23 22:20 Urine Bilirubin NEGATIVE (NEGATIVE) 03/19/23 22:20 Urine Urobilinogen 0.2 (NORMAL) E.U./dL (NORMAL) 03/19/23 22:20 Ur Leukocyte Esterase NEGATIVE (NEGATIVE) 03/19/23 22:20 Urine RBC 6-10 /HPF (0-5) H 03/19/23 22:20 Urine WBC 0-3 /HPF (0-3) 03/19/23 22:20 Ur Squamous Epith Cells NONE SEEN (<= Few) 03/19/23 22:20 Amorphous Sediment Rare /LPF 03/19/23 11:45 Urine Bacteria None Seen /HPF (None Seen) 03/19/23 22:20 Ur Microscopic Review INDICATED 03/19/23 22:20 Urine Culture Comments NOT INDICATED 03/19/23 22:20 Nasal Screen MRSA (PCR) NEGATIVE (NEGATIVE) 03/19/23 15:00 Salicylates < 1.5 mg/dL 03/19/23 10:08 Urine Opiates Screen NEGATIVE (NEGATIVE) 03/19/23 11:45 Ur Oxycodone Screen NEGATIVE (NEGATIVE) 03/19/23 11:45 Urine Methadone Screen NEGATIVE (NEGATIVE) 03/19/23 11:45 Ur Propoxyphene Screen NEGATIVE (NEGATIVE) 03/19/23 11:45 Acetaminophen 0.3 ug/mL 03/19/23 10:08 Ur Barbiturates Screen NEGATIVE (NEGATIVE) 03/19/23 11:45 Ur Tricyclics Screen NEGATIVE (NEGATIVE) 03/19/23 11:45 Ur Phencyclidine Scrn NEGATIVE (NEGATIVE) 03/19/23 11:45 Ur Amphetamine Screen NEGATIVE (NEGATIVE) 03/19/23 11:45 U Methamphetamines Scrn NEGATIVE (NEGATIVE) 03/19/23 11:45 U Benzodiazepines Scrn NEGATIVE (NEGATIVE) 03/19/23 11:45 Urine Cocaine Screen NEGATIVE (NEGATIVE) 03/19/23 11:45 U Cannabinoids Screen POSITIVE (NEGATIVE) H 03/19/23 11:45 Ethyl Alcohol < 10.0 mg/dL 03/19/23 10:08 Serum Ketones NEGATIVE (NEGATIVE) 03/20/23 16:26
[2023-03-21] MEDS: ATORVASTATIN 40 MG TABLET PO SCH (21:14)
[2023-03-22 04:46] LABS: CALCIUM, IONIZED 1.08 mmol/L (1.15-1.33); VBG PH 7.475 (7.31-7.41)
[2023-03-22 05:02] LABS: MAGNESIUM 1.6 mg/dL (1.7-2.3); PHOSPHORUS 1.8 mg/dL (2.5-5.0)
[2023-03-22 05:08] LABS: TROPONIN I HIGH SENSITIVITY 10.9 ng/L (2.3-19.7)
[2023-03-22 05:17] LABS: THYROID STIMULATING HORMONE 0.64 uIU/mL (0.34-5.60)
[2023-03-22] MEDS ORDERED: MAGNESIUM SULFATE 2 GRAM 2 GM/50 ML BAG IV ONE (08:12)
[2023-03-22] MEDS: METOPROLOL TARTRATE 25 MG TABLET PO SCH (08:52)
[2023-03-22] MEDS: INSULIN LISPRO 300 UNIT/3 ML PEN SUBQ SCH ×6 (08:53→16:56)
[2023-03-22] MEDS: INSULIN GLARGINE-YFGN 300 UNIT/3 ML PEN SUBQ SCH (08:54)
[2023-03-22] MEDS: metFORMIN 500 MG TABLET PO SCH ×2 (08:55→16:58)
[2023-03-22] MEDS: FAMOTIDINE 20 MG TABLET PO SCH (08:56)
[2023-03-22] MEDS: ENOXAPARIN 40 MG/0.4 ML SYRINGE SUBQ SCH (08:56)
[2023-03-22] MEDS: ASPIRIN EC 81 MG TABLET PO SCH (08:56)
[2023-03-22] MEDS: GABAPENTIN 300 MG CAPSULE PO SCH (08:57)
[2023-03-22] MEDS ORDERED: POTASSIUM PHOSPHATE 15 MMOL in SODIUM CHLORIDE 0.9% 250 ML IV ONE (09:00)
[2023-03-22] MEDS: SODIUM CHLORIDE FLUSH 0.9% 10 ML SYRINGE IVP SCH ×2 (10:13→16:56)
[2023-03-22] MEDS: DULoxetine 30 MG CAPSULE PO SCH (10:14)
[2023-03-22 15:59] LABS: BASOPHILS % (AUTO) 0.3 %; EOSINOPHILS # (AUTO) 0.1 10^3/uL (0.0-0.7); EOSINOPHILS % (AUTO) 0.7 %; HCT - HEMATOCRIT 40.7 % (42.0-52.0); HGB - HEMOGLOBIN 13.4 g/dL (14.0-18.0); LYMPHOCYTES # (AUTO) 1.7 10^3/uL (1.5-3.5); LYMPHOCYTES % (AUTO) 19.3 %; MEAN CORPUSCULAR HEMOGLOBIN 27.9 pg (27.0-31.0); MEAN CORPUSCULAR HGB CONC 32.9 g/dL (32.0-36.0); MEAN CORPUSCULAR VOLUME 84.6 fL (80.0-94.0); MEAN PLATELET VOLUME 9.7 fL (7.4-11.4); MONOCYTES # (AUTO) 1.1 10^3/uL (0.0-1.0); MONOCYTES % (AUTO) 11.7 %; NEUTROPHILS # (AUTO) 6.1 10^3/uL (1.5-6.6); NEUTROPHILS % (AUTO) 67.8 %; PLT - PLATELET COUNT 178 10^3/uL (130-450); RED BLOOD COUNT 4.81 10^6/uL (4.70-6.10); RED CELL DISTRIBUTION WIDTH 14.8 % (12.0-15.0)
[2023-03-22 16:11] LABS: CALCIUM 8.5 mg/dL (8.5-10.3); CREATININE 0.5 mg/dL (0.6-1.3); POTASSIUM 3.7 mmol/L (3.5-4.5)
--- NOTE | 2023-03-22 16:24 | Discharge Plan ---
Discharge Plan Problem Reviewed?: Yes Disposition: Home, Self Care Condition: Fair Diet: Diabetic Activity Restrictions: Activity as Tolerated Assistance Devices: Walker Weight Bearing: Full Weight Health Concerns: You were hospitalized because you went into DKA. The cause appears to be that you had severe dehydration from nausea and vomiting and you admitted to poor compliance with sugar monitoring and with your diet. You needed to be in the ICU on an insulin drip and you were in critical condition. We did not find an infection to be the cause of your going into DKA. If you get incessant vomiting, this could be from using too much marijuana, and you need to decrease your use of marijuana. Incessant vomiting can also be caused by diabetic gastroparesis (poor stomach emptying from diabetic nerve damage). You need to see your primary care provider or a diabetic specialist, to further manage these recurrent symptoms. You are being discharged home today and advised to eat a proper diabetic diet and advised to resume your insulin dosing. You should not be eating doughnuts and pies, because that is not a proper diabetic diet. You should be taking in more proteins. If you need assistance with diabetes management, you qualify to come to the diabetic clinic here at the hospital, called the [facility] clinic. Please also be more diligent about checking your sugar levels. You were seen by our physical therapist who felt that it would be safer if you used a walker for support when you ambulate. You qualify for attending outpatient physical therapy and Occupational Therapy, and these referrals would need to be ordered by your Primary Care Provider. Plan of Treatment: As above. Please see your primary care provider in the next 5 - 10 days for hospital follow-up visit. Care Goals: Improvement in symptoms and stabilization are the goals. Assessment: The patient understands and is agreeable with the plan. Additional Instructions or Follow Up instructions: If you have new or worsening symptoms, call your PCP for advice, or come to the ER. Follow-Up Care: [facility] - Diabetes Ed No Smoking: If you smoke, Please STOP! Call for help. Follow-up with: Betsy Ngo ARNP [Primary Care Provider] -
--- NOTE | 2023-03-22 16:29 | DISCHARGE SUMMARY ---
Discharge Summary Admit Date: 03/19/23 Discharge Date: 03/22/23 Discharging Provider: Maegan Matthew MD Primary Care Provider: Sheree Ngo NP Condition at Discharge: Fair Discharge Disposition: 01 Home, Self Care - HPI History of Present Illness: This is a 67-year-old male with a past medical history significant for type 2 diabetes mellitus treated with insulin, coronary artery disease, has had toe and distal foot amputations and a history of being seen in our wound clinic, had an admission here in 2020 with DKA and hypercalcemia. His hemoglobin A1c was 14 then and it was suspected he was non-compliant with diabetic meds, suspected to have diabetic gastroparesis and also hyperemesis from using marijuana, and hypercalcemia from using excessive Tums. He presented to our ER today, BIBA and medics reported on their arrival the patient was agitated and confused and not following directions, also had deep rapid breathing, and acidosis was suspected. The daughter gave our ER doctor a report that the patient seemed confused upon awakening this morning. He then had an episode of poor responsiveness/unresponsiveness and "tightening of his muscles" with some altered breathing. She thought it looked seizure-like, which then stopped and he was less responsive, agitated and confused. He had vomiting the past 2 days, but no diarrhea. The daughter was not aware of him having any cough, shortness of breath, or dysuria. There is no history of seizure disorder. In the ER, he was initially minimally responsive, was put in safety restraints briefly, then slowly awoke and was able to speak normally to the ER provider and reported he felt weak. He underwent head CT that showed no acute findings. Chest x-ray was WNL. No abdominal imaging was done. Labs showed a white blood count of 28, low serum bicarb of 13, elevated anion gap of 30, pH on VBG of 7.35, small serum ketones were present and serum glucose level 429. The ED provider then spoke to me about this patient. He will be admitted to the ICU for treating diabetic ketosis, hyperglycemia, and altered mental status. Patient is somnolent and does not give me any details. During the last admission for DKA in 2020, he wanted to be a Full Code. - HOSPITAL COURSE Hospital Course: (1) Altered mental status Resolved as his DKA cleared (2) Ketosis due to diabetes He was admitted to the ICU and started on DKA protocol including insulin drip and IV saline. This was similar to his admission in 2020 when he had positive serum ketones but a normal serum pH, therefore he was not acidotic. He was hyperglycemic. The cause for this was not entirely clear. The only symptoms that were abnormal recently had been nausea and vomiting for 2 days. No other areas on exam seemed to be a focus for an infection and his CXR and U/A were unremarkable. When I got extra information from the by phone, she was not s ure if he was taking his insulin. When he was conversant, he only described that he got weak, was vomiting a lot, but he claimed he was taking his insulin. He was transferred out of the ICU when his serum ketones became neg. (3) Hyperglycemia due to diabetes mellitus His 2 days of nausea vomiting at home could have been from diabetic gastroparesis, or from cannabis hyperemesis, or due to the beginning of this diabetic ketosis. His usual diabetic meds and management were resumed at discharge. (4) Noncompliance with medication regimen I spoke to the by phone who told me that the patient eats starches and sweets every day for breakfast at a restaurant with his buddies. When he shops he brings home a pie and eats half of it in 1 sitting. He has always been like this, and he has told her that he "does not care" and will not follow di rections. He did admit to me that he eats alot of starches, and does not check his sugar routinely. He then himself admitted that he needs to be more compliant with measuring his glucose and I advised that he needs a lower starch diet. (5) PSVT He had frequent episodes of atrial tachycardia at rates of 150. His TSH was normal. A set of troponins was "flat", ruling out an ACS. Medication list was reconciled, and showed that he took Metoprolol at home. The Metoprolol was resumed and the Atrial tachycardias resolved. I wanted to obtain an Echo howeve, we had no optical technician here during the days he was hospitalized. (6) Marijuana use I suspect that part of his 2 days of nausea and vomiting at home was from cannabis hyperemesis syndrome. I discussed that with him and he agreed that he needed to decrease his marijuana use (7) Leukocytosis Resolved without empiric antibiotics. Therefore, this was demargination from stress of DKA. (8) Hypercalcemia Resolved with saline hydration. His serum PTH is normal. - ALLERGIES Allergies/Adverse Reactions: Allergies Allergy/AdvReac Type Severity Reaction Status Date / Time No Known Drug Allergies Allergy Verified 03/19/23 10:01 - MEDICATIONS Home Medications: Ambulatory Orders Medication Instructions Recorded Confirmed Metformin HCl 1,000 mg PO BID 03/13/14 03/19/23 Atorvastatin Calcium [Lipitor] 80 mg PO DAILY 12/09/20 03/19/23 Empagliflozin [Jardiance] 10 mg PO DAILY 12/09/20 03/19/23 Metoprolol Tartrate [Lopressor] 12.5 mg PO BID 12/09/20 03/19/23 DULoxetine [Cymbalta] 30 mg PO BID 12/10/20 03/19/23 Insulin Degludec [Tresiba 64 unit SQ DAILY 12/10/20 03/19/23 Flextouch U-200] Gabapentin [Neurontin] 300 mg PO BID 03/19/23 03/19/23 Triamcinolone 0.1% Oint 1 applic TOP QID PRN 03/19/23 03/19/23 - PHYSICAL EXAM AT DISCHARGE General Appearance: positive: No acute distress, Alert Eyes Bilateral: positive: Normal inspection, EOMI ENT: positive: ENT inspection nml, No signs of dehydration Neck: positive: Nml inspection, No JVD Respiratory: positive: No respiratory distress, Breath sounds nml Cardiovascular: positive: Regular rate & rhythm, No murmur Abdomen: positive: Non-tender, Nml bowel sounds, No distention Skin: positive: Warm, Dry Extremities: positive: Non-tender, No pedal edema Neurologic/Psychiatric: positive: Oriented x3, Motor nml, Other (Poor memory) - LABS Result Diagrams: 03/22/23 15:51 03/22/23 15:51 - DIAGNOSTIC IMAGING Diagnostic Imaging Results: Final report reviewed - FOLLOW UP Follow Up: See PCP in 1 to 2 weeks for hospital follow-up office visit. - TIME SPENT Time Spent in Discharge (Minutes): 40
[2023-03-22 16:51] VITALS: BP 147/87; O2SAT 96
== END 2023-03-22 17:48 | disposition home or self-care (01) | DRG 638 ==
LOC: EDUNIT# → ED 09:49 → ICU 13:13 → MS2 03-22 07:43
PROVIDERS: ADMIT Internal Medicine; ATTEND Internal Medicine
DX: E11.10 Type 2 diabetes mellitus with ketoacidosis without coma (principal); I47.1 Supraventricular tachycardia; I25.10 Atherosclerotic heart disease of native coronary artery without angina pectoris; E11.65 Type 2 diabetes mellitus with hyperglycemia; Z78.1 Physical restraint status; R11.2 Nausea with vomiting, unspecified; Z79.84 Long term (current) use of oral hypoglycemic drugs; D72.829 Elevated white blood cell count, unspecified; E83.52 Hypercalcemia; I10 Essential (primary) hypertension; E78.00 Pure hypercholesterolemia, unspecified; G47.30 Sleep apnea, unspecified; E11.42 Type 2 diabetes mellitus with diabetic polyneuropathy; K21.9 Gastro-esophageal reflux disease without esophagitis; N40.0 Benign prostatic hyperplasia without lower urinary tract symptoms; G89.29 Other chronic pain; M54.9 Dorsalgia, unspecified; Z79.4 Long term (current) use of insulin; Z82.49 Family history of ischemic heart disease and other diseases of the circulatory system; Z83.3 Family history of diabetes mellitus; Z89.429 Acquired absence of other toe(s), unspecified side; Z89.439 Acquired absence of unspecified foot; Z91.118 Patient's noncompliance with dietary regimen for other reason; Z91.148 Patient's other noncompliance with medication regimen for other reason; Z95.1 Presence of aortocoronary bypass graft
CPT/HCPCS: 36415; 70450; 71045; 74176; 80048; 80053; 80306; 80307; 81001; 82009; 82330; 82397; 82803; 83036; 83605; 83690; 83735; 84100; 84132; 84443; 84484; 85025; 87150; 93005; 96361; 96374; 97162; 97530; 99285; A9270; G0480; J1650; J1815; J2060; 80320; 80329; 81003; 87086